=== PATIENT | male | born 1940 | race Two or more races ===

== ENCOUNTER 2024-09-10 10:47 | Inpatient (IN) | payer MEDICARE, OTHER ==
[~2024-09-10] VITALS: Ht 168.9 cm; Wt 76.3 kg
[~2024-09-10 10:47] MED LIST: ACET-1881 PO; ATOR-507 PO; BISA10SU52 PR; CEFD300C2 PO; DICL75TA3 PO; DOXY100C4 PO; FAMO-12 PO; FLUC100T34 PO; FURO40TA4 PO; LEVO25TA6 PO; LISI10TA34 PO; MELA5TAB16 PO; METO25TA93 PO; POTA-228 PO; SODIENE35 RE
--- NOTE | 2024-09-10 11:13 | ED.PDOC ---
History of Present Illness HPI Comments 84-year-old with only known history of CHF brought in by EMS presents with a wound to right foot and ALOC. Per EMS, patient is coming from home and a "doctor" called 911 after finding patient with a wound to his right foot that is actively bleeding. Patients foot was wrapped with sterile gauze by EMS to cont rol the bleeding. Patient is altered at this time, unable to open eyes, and physically moves to physical stimuli, but does not respond to verbal stimuli. No family present to elaborate further on patients history or conditions. Chief Complaint: Wound Check Time Seen by MD: 11:05 Primary Care Provider: HERVE Reviewed Notes: Medications, Allergies Allergies: Coded Allergies: NO KNOWN ALLERGIES (Unverified , 09/10/24) Information Source: Emergency Med Personnel Mode of Arrival: EMS Severity: Moderate Timing: Other (UNKNOWN) Duration: Other (UNKNOWN) Prehospital treatment: Treatment (GAUZE TO BLEEDING RIGHT FOOT) Past Medical History PAST MEDICAL HISTORY: CHF, Unknown, Unobtainable, Pt Confused Surgical History: Unknown, Unobtainable, Pt Confused Family History Family History: Unknown, Unobtainable, Pt Confused Social History Smoker: Unknown, Unobtainable, Pt Confused Alcohol: Unknown, Unobtainable, Pt Confused Drugs: Unknown, Unobtainable, Pt Confused Lives In: Home Constitutional: denies: chills, diaphoresis, fatigue, fever, malaise, sweats, weakness, others EENTM: denies: blurred vision, double vision, ear bleeding, ear discharge, ear drainage, ear pain, ear ringing, eye pain, eye redness, hearing loss, mouth pain, mouth swelling, nasal discharge, nose bleeding, nose congestion, nose pain, photophobia, tearing, throat pain, throat swelling, voice changes, others Respiratory: denies: cough, hemoptysis, orthopnea, SOB at rest, shortness of breath, SOB with excertion, stridor, wheezing, others Cardiovascular: denies: chest pain, dizzy spells, diaphoresis, Dyspnea on exertion, edema, irregular heart beat, left arm pain, lightheadedness, palpitations, PND, syncope, others Gastrointestinal: denies: abdomen distended, abdominal pain, blood streaked bowels, constipated, diarrhea, dysphagia, difficulty swallowing, hematemesis, melena, nausea, poor appetite, poor fluid intake, rectal bleeding, rectal pain, vomiting, others Genitourinary: denies: burning, dysuria, flank pain, frequency, hematuria, incontinence, penile discharge, penile sore, pain, testicle pain, testicle swelling, urgency, others Neurological: denies: dizziness, fainting, headache, left sided numbness, left sided weakness, numbness, paresthesia, pre-existing deficit, right sided numbness, right sided weakness, seizure, speech problems, tingling, tremors, we akness, others Musculoskeletal: denies: back pain, gout, joint pain, joint swelling, muscle pain, muscle stiffness, neck pain, others Integumetry: reports: wounds (RIGHT BLEEDING FOOT); denies: bruises, change in color, change in hair/nails, dryness, laceration, lesions, lumps, rash, others Allergic/Immunocompromised: denies: Difficulty Healing, Frequent Infections, Hives, Itching, others Hematologic/Lymphatic: denies: anemia, blood clots, easy bleeding, easy bruising, swollen glands, others Endocrine: denies: excessive hunger, excessive sweating, excessive thirst, excessive urination, flushing, intolerance to cold, intolerance to heat, unexplained weight gain, unexplained weight loss, others Psychiatric: denies: anxiety, bipolar disorder, depression, hopeless, panic disorder, schizophrenia, sleepless, suicidal, others Unable to Obtain due to: Altered Mental Status All Other Systems: Reviewed and Negative Physical Exam General Appearance: Other (Chronically ill-appearing and A&O times 0) HEENT: Other (Poor dentition) Neck: Normal Inspection Respiratory: No Respiratory Distress Cardiovascular: Tachycardia Breast Exam: Deferred Gastrointestinal: Non Tender Genitalia: Deferred Pelvic: Deferred Rectal: Deferred Extremities: Other (Erythema tenderness and discoloration to the bilateral lower extremities) Neurologic: Aphasia, No Motor Deficits, Other (Patient is nonverbal ) Cerebellar Function: Unable to Test Reflexes: NOT DONE Skin: Wounds Lymphatic: NOT DONE Was a procedure done? Was a procedure done?: No Differential Dx Considerations may include: Electrolyte abnormality, infectious etiology circulatory compromise X-Ray, Labs, Meds, VS Vital Signs Date Time Temp Pulse Resp B/P (MAP) Pulse Ox O2 Delivery O2 Flow Rate FiO2 09/10/24 14:40 54 09/10/24 13:18 65 19 137/118 (124) 96 09/10/24 12:24 56 15 156/120 (132) 96 09/10/24 11:37 58 16 164/144 (151) 96 09/10/24 10:47 98.9 58 15 109/71 (84) 95 Lab Test 09/10/24 14:07 09/10/24 12:45 Range/Units Troponin I High Sensitivity 81 *H 79 *H </=54 ng/L White Blood Count 7.7 4.4-10.8 10^3/uL Red Blood Count 4.81 4.5-5.90 10^6/uL Hemoglobin 16.2 13.5-17.5 g/dL Hematocrit 49.4 41.0-53.0 % Mean Corpuscular Volume 102.8 H 80.0-100.0 fL Mean Corpuscular Hemoglobin 33.7 H 28.0-32.0 pg Mean Corpuscular Hemoglobin Concent 32.8 32.0-36.0 g/dL Red Cell Distribution Width 15.7 H 11.8-14.3 % Platelet Count 150 140-450 10^3/uL Mean Platelet Volume 9.8 6.9-10.8 fL Neutrophils (%) (Auto) 37.0-80.0 % Lymphocytes (%) (Auto) 10.0-50.0 % Monocytes (%) (Auto) 0.0-12.0 % Basophils (%) (Auto) 0.0-2.0 % Neutrophils # (Auto) 1.6-8.6 10 ^3/uL Lymphocytes # (Auto) 0.4-5.4 10 ^3/uL Monocytes # (Auto) 0-1.3 10 ^3/uL Differential Total Cells Counted 100.0 100 Neutrophils % (Manual) 87 H 37.0-80.0 Band Neutrophils % (Manual) 3 Lymphocytes % (Manual) 5 L 10.0-50.0 Monocytes % (Manual) 5 0-12 Eosinophils % (Manual) 0 0-7 Basophils % (Manual) 0 0.0-2.0 Metamyelocytes % (manual) 0 Myelocytes % (Manual) 0 Promyelocytes % (Manual) 0 Blast Cells % (Manual) 0 Reactive Lymphocytes 0 Platelet Estimate Adequate Clumped Platelets Few Anisocytosis (manual) Slight Macrocytosis Slight Sodium Level 138 136-145 mmol/L Potassium Level 6.4 *H 3.5-5.1 mmol/L Chloride Level 103 98-107 mmol/L Carbon Dioxide Level 24 20-31 mmol/L Anion Gap 11 5-15 Blood Urea Nitrogen 114 *H 9-23 mg/dL Creatinine 3.66 H 0.700-1.30 mg/dL Glomerular Filtration Rate Calc 16 >90 mL/min BUN/Creatinine Ratio 31.1 H 10.0-20.0 Serum Glucose 70 L 74-106 mg/dL Lactic Acid Level 3.0 *H 0.4-2.0 mmol/L Calcium Level 10.0 8.7-10.4 mg/dL Total Bilirubin 1.9 H 0.2-1.0 mg/dL Aspartate Amino Transferase (AST) 210 H 13-40 U/L Alanine Aminotransferase (ALT) 115 H 7-40 U/L Alkaline Phosphatase 166 H 46-116 U/L B-Type Natriuretic Peptide 1623.10 0-100 pg/mL Total Protein 5.5 L 5.7-8.2 g/dL Albumin 3.2 3.2-4.8 g/dL Current Medications Medications (Trade) Dose Ordered Sig/Aram Route Start Time Stop Time Status Last Admin Vancomycin HCl 200 ml @ 200 mls/hr ONCE ONCE IV 09/10/24 14:00 09/10/24 14:59 09/10/24 14:27 Sodium Chloride 2,000 ml @ 1,000 mls/hr Q2H ONCE IV 09/10/24 14:00 09/10/24 15:59 09/10/24 14:18 Time of 1ST Reevaluation: 11:35 Reevaluation 1ST: Unchanged Patient Education/Counseling: Diagnosis, Treatment, Prognosis Family Education/Counseling: Diagnosis, Treatment, Prognosis Departure 1 Departure Time of Disposition: 14:51 (Patient with worsening bilateral lower extremity cellulitis, and inability to care for himself at home. Family reports that patient is at his mental baseline.) Impression: Primary Impression: Bilateral cellulitis of lower leg Additional Impressions: Generalized weakness Metabolic encephalopathy Disposition: ADMITTED INPATIENT Admit to: Med Surg Condition: Serious Critical Care Note Critical Care Time?: No Stability Stability form required: No I personally scribed for ZACHARY NAPOLES MD ([email or web address]) on 09/10/24 at 11:13. Electronically submitted by Savage Red [email or web address]). ZACHARY NAPOLES MD Sep 10, 2024 11:13
[2024-09-10 11:40] VITALS: PULSE 58; RESP 9; O2SAT 90
--- NOTE | 2024-09-10 13:00 | DVH ---
CHEST RADIOGRAPH Indication: ams Technique: Single frontal view of the chest was obtained COMPARISON: None FINDINGS: Lines and Tubes: None Lungs: Clear Pleura: No effusion. No pneumothorax. Cardiomediastinal contours: Cardiomegaly Bones: Unremarkable IMPRESSION: 1. No acute disease. 2. Cardiomegaly
--- NOTE | 2024-09-10 13:04 | DVH ---
CLINICAL INDICATION: right foot pain TECHNIQUE: 3 radiographic views of the right foot were obtained. Comparison: None FINDINGS/IMPRESSION: There is no evidence of acute fracture or dislocation. The visualized joint space is well maintained. The alignment is anatomical. 5 mm curvilinear density partially overlying the medial 5th toe proximal phalanx head which may be ex ternal to the patient with the foreign body not excluded. Recommend clinical correlation.
[2024-09-10 13:19] LABS: Hemoglobin 16.2 g/dL (13.5-17.5); White Blood Cell 7.7 10^3/uL (4.4-10.8)
[2024-09-10 13:20] LABS: Hematocrit 49.4 % (41.0-53.0); Mean Corpuscular Hemoglobin 33.7 pg (28.0-32.0); Mean Corpuscular Hgb Conc. 32.8 g/dL (32.0-36.0); Mean Corpuscular Volume 102.8 fL (80.0-100.0); Platelet Count (auto) 150 10^3/uL (140-450); Red Blood Cells 4.81 10^6/uL (4.5-5.90); Red Cell Distribution Width 15.7 % (11.8-14.3)
[2024-09-10 13:25] LABS: Basophils % (manual) 0 (0.0-2.0); Blast Cells 0; Eosinophils % (manual) 0 (0-7); Metamyelocytes % 0; Myelocytes % 0; Promyelocytes % 0; Reactive Lymphocytes 0
[2024-09-10 13:33] LABS: Albumin 3.2 g/dL (3.2-4.8); Anion Gap 11 (5-15); BUN/Creatinine Ratio 31.1 (10.0-20.0); Carbon Dioxide 24 mmol/L (20-31); Chloride 103 mmol/L (98-107); Sodium 138 mmol/L (136-145)
[2024-09-10 13:35] LABS: Anisocytosis Slight; Band Neutrophils % (manual) 3; Lymphocytes % (manual) 5 (10.0-50.0); Macrocytosis Slight; Monocytes % (manual) 5 (0-12); Platelet Estimate Adequate
[2024-09-10 13:44] LABS: Alanine Aminotransferase 115 U/L (7-40); Alkaline Phosphatase 166 U/L (46-116); Aspartate Aminotransferase 210 U/L (13-40); Bilirubin, Total 1.9 mg/dL (0.2-1.0); Glucose 70 mg/dL (74-106); Total Protein 5.5 g/dL (5.7-8.2)
[2024-09-10 13:47] LABS: Blood Urea Nitrogen 114 mg/dL (9-23); Potassium 6.4 mmol/L (3.5-5.1)
[2024-09-10] MEDS: SODIUM CHLORIDE 0.9% 2,000 ML IV ONE (14:18)
[2024-09-10] MEDS: VANCOMYCIN 1GM/250ML KIT 200 ML IV ONE (14:27)
[2024-09-10] MEDS: CALCIUM GLUC 1,000mg/50ml-NS 50 ML IV SCH (15:34)
[2024-09-10] MEDS: DEXTROSE (50%) 50ML SYRG IV ONE (15:57)
[2024-09-10] MEDS: InsuLIN REG 1unit/0.01ml Soln (100units/ml) IV ONE (16:19)
[2024-09-10] MEDS: SODIUM BICARB 8.4% 50Meq/50ml SYR Vial IV ONE (16:24)
[2024-09-10] MEDS: CEFEPIME 2GM/50ML NS 50 ML IV ONE (16:25)
[2024-09-11 00:04] LABS: Urine Bacteria FEW /hpf (None Seen); Urine Blood 2+ /uL (Negative); Urine Clarity Turbid (Clear); Urine Color Yellow (Yellow); Urine Hyaline Cast MOD /lpf (0 - 2); Urine Mucus FEW (None Seen); Urine Protein, UAD 1+ (Negative); Urine Squamous Epithelial Cell FEW /hpf (<5); Urine Urobilinogen Normal (Negative); Urine WBC 5 /HPF (0-3)
[2024-09-11] MEDS: DEXTROSE (50%) 50ML SYRG IV ONE (01:42)
[2024-09-11] MEDS ORDERED: NITROGLYCERIN 0.4 MG SL TAB SL PRN (04:30)
[2024-09-11] MEDS ORDERED: ONDANSETRON HCL 4 MG/2 ML VIAL IV PRN (04:30)
[2024-09-11] MEDS ORDERED: VANCOMYCIN PER PHARMACY 0 MG IV SCH (04:30)
[2024-09-11] MEDS ORDERED: MORPHINE SULFATE INJ 2 MG/ml SYRG IV PRN (04:30)
[2024-09-11] MEDS ORDERED: ACETAMINOPHEN 325 MG TAB PO PRN (04:30)
--- NOTE | 2024-09-11 04:44 | DVHHP2 ---
History of Present Illness Reason for Visit: Altered mental status History of Present Illness 84-year-old male presents for evaluation of altered mental status. Patient is currently confused and can not provide history. Patient presents with altered mental status and bilateral foot wounds. CT of the head has been ordered by this provider and is currently pending. Patient is alert but does not respond to questions or follow commands. Noted discoloration and multiple open wounds to bilateral feet. No further history could be obtained at the moment. Past Medical History Congestive heart failure and hypertension Past Surgical History Unknown Family History Noncontributory Smoke: No ALCOHOL: none Drugs: None Review of Systems Review of Systems Unable to complete review of systems due to the patient's altered mental status. Allergies: Coded Allergies: NO KNOWN ALLERGIES (Unverified , 09/10/24) Exam Vital Signs Vital Signs Date Time Temp Pulse Resp B/P (MAP) Pulse Ox O2 Delivery O2 Flow Rate FiO2 09/11/24 04:00 76 27 95/65 (75) 96 09/11/24 00:00 97.9 97.9 09/10/24 19:30 Nasal Cannula* 2 28 Exam Gen: 84-year-old male in moderate distress Skin: Warm, dry, normal color and texture, no rash. HEENT: Normocephalic atraumatic, mucous membranes moist and pink. Neck: Cervical and supraclavicular nodes normal without enlargement, trachea is midline, thyroid gland is normal without masses. Pulmonary: Clear to auscultation and percussion bilaterally. Cardiac: Regular rate and rhythm. No murmur Abdomen: Soft, nontender, nondistended, bowel sounds present all 4 quadrants, no guarding, no rigidity, no organomegaly. Extremities: No cyanosis, clubbing, bilateral feet discoloration with multiple open wounds and sluggish dorsalis pedis pulses. Neuro: Lethargic Labs/Xrays ORDERING PHYSICIAN: ZACHARY NAPOLES MD PROCEDURE(s): RFOOT - R FOOT 3 VIEW XRAY REASON: right foot pain ORDER NUMBER(s): [id number], ACCESSION NUMBER(s): [id number] CLINICAL INDICATION: right foot pain TECHNIQUE: 3 radiographic views of the right foot were obtained. Comparison: None FINDINGS/IMPRESSION: There is no evidence of acute fracture or dislocation. The visualized joint space is well maintained. The alignment is anatomical. 5 mm curvilinear density partially overlying the medial 5th toe proximal phalanx head which may be external to the patient with the foreign body not excluded. Recommend clinical correlation. RING PHYSICIAN: ZACHARY NAPOLES MD PROCEDURE(s): CXRP - CHEST PORTABLE REASON: ams ORDER NUMBER(s): [id number], ACCESSION NUMBER(s): [id number] CHEST RADIOGRAPH Indication: ams Technique: Single frontal view of the chest was obtained COMPARISON: None FINDINGS: Lines and Tubes: None Lungs: Clear Pleura: No effusion. No pneumothorax. Cardiomediastinal contours: Cardiomegaly Bones: Unremarkable IMPRESSION: 1. No acute disease. 2. Cardiomegaly Labs Test 09/11/24 03:13 09/10/24 23:45 09/10/24 21:31 09/10/24 16:56 Range/Units Urine Color Yellow Yellow Urine Clarity Turbid H Clear Urine pH 5.0 5.0-9.0 Urine Specific [place] 1.020 1.001-1.035 Urine Protein 1+ H Negative Urine Ketones Negative Negative Urine Blood 2+ H Negative /uL Urine Nitrite Negative Negative Urine Bilirubin Negative Negative Urine Urobilinogen Normal Negative mg/dL Urine Leukocyte Esterase Negative Negative /uL Urine RBC 58 0 - 3 /hpf Urine Microscopic WBC 5 H 0-3 /HPF Urine Squamous Epithelial Cells Few <5 /hpf Urine Bacteria Few H None Seen /hpf Urine Hyaline Casts Mod 0 - 2 /lpf Urine Mucus Few None Seen Urine Glucose Normal Normal mg/dL POC Glucose 76 70-106 mg/dl Troponin I High Sensitivity 80 *H </=54 ng/L Test 09/10/24 12:45 Range/Units White Blood Count 7.7 4.4-10.8 10^3/uL Red Blood Count 4.81 4.5-5.90 10^6/uL Hemoglobin 16.2 13.5-17.5 g/dL Hematocrit 49.4 41.0-53.0 % Mean Corpuscular Volume 102.8 H 80.0-100.0 fL Mean Corpuscular Hemoglobin 33.7 H 28.0-32.0 pg Mean Corpuscular Hemoglobin Concent 32.8 32.0-36.0 g/dL Red Cell Distribution Width 15.7 H 11.8-14.3 % Platelet Count 150 140-450 10^3/uL Mean Platelet Volume 9.8 6.9-10.8 fL Neutrophils (%) (Auto) 37.0-80.0 % Lymphocytes (%) (Auto) 10.0-50.0 % Monocytes (%) (Auto) 0.0-12.0 % Basophils (%) (Auto) 0.0-2.0 % Neutrophils # (Auto) 1.6-8.6 10 ^3/uL Lymphocytes # (Auto) 0.4-5.4 10 ^3/uL Monocytes # (Auto) 0-1.3 10 ^3/uL Differential Total Cells Counted 100.0 100 Neutrophils % (Manual) 87 H 37.0-80.0 Band Neutrophils % (Manual) 3 Lymphocytes % (Manual) 5 L 10.0-50.0 Monocytes % (Manual) 5 0-12 Eosinophils % (Manual) 0 0-7 Basophils % (Manual) 0 0.0-2.0 Metamyelocytes % (manual) 0 Myelocytes % (Manual) 0 Promyelocytes % (Manual) 0 Blast Cells % (Manual) 0 Reactive Lymphocytes 0 Platelet Estimate Adequate Clumped Platelets Few Anisocytosis (manual) Slight Macrocytosis Slight B-Type Natriuretic Peptide 1623.10 0-100 pg/mL Assessment/Plan Assessment/Plan Assessment Metabolic encephalopathy Sepsis Acute on chronic congestive heart failure Rule out bilateral foot necrosis Questionable peripheral arterial disease Acute renal failure with hyperkalemia Hypo glycemia Plan Admit the patient to [facility] to the hospitalist Cardiology consultation Nephrology consult Podiatry consult Vascular surgery consultation CT of the head/bilateral foot ordered by this provider and pending Repeat blood work ordered on 09/10/24 at 2145 and still pending Total critical care time excluding procedures performed this 55 minutes. Plan discussed with: Patient My Orders Orders - PRADIP MUSE Procedure Category Date Status Time Creatine Kinase LAB 09/10/24 Logged 21:45 Comprehensive LAB 09/10/24 Logged Metabolic Panel 21:45 Lactic Acid W/ Reflex LAB 09/11/24 Logged Order 01:45 Date of Service: Sep 11, 2024 Billing Provider: PRADIP MUSE Common Visit Codes: [id number] CARE 30-74 MIN PRADIP MUSE Sep 11, 2024 04:44
[2024-09-11 05:01] LABS: Base Excess -2.4 mmol/L (-2.0-3.0)
[2024-09-11] MEDS: DEXTROSE 10% 1,000 ML IV SCH (05:03)
[2024-09-11 05:39] LABS: Eosinophils # (auto) 0 10 ^3/uL (0-0.8); Eosinophils % (auto) 0.1 % (0.0-7.0); Hemoglobin 16.1 g/dL (13.5-17.5); Lymphocytes # (auto) 0.2 10 ^3/uL (0.4-5.4); Lymphocytes % (auto) 2.7 % (10.0-50.0); Mean Corpuscular Hemoglobin 34.4 pg (28.0-32.0)
[2024-09-11 05:42] LABS: Basophils # (auto) 0.1 10 ^3/uL (0-0.2); Basophils % (auto) 0.6 % (0.0-2.0); Hematocrit 47.7 % (41.0-53.0); Mean Corpuscular Hgb Conc. 33.7 g/dL (32.0-36.0); Mean Corpuscular Volume 102.2 fL (80.0-100.0); Monocytes # (auto) 0.7 10 ^3/uL (0-1.3); Neutrophils # (auto) 7.9 10 ^3/uL (1.6-8.6); Neutrophils % (auto) 88.6 % (37.0-80.0); Platelet Count (auto) 164 10^3/uL (140-450); Red Blood Cells 4.67 10^6/uL (4.5-5.90); Red Cell Distribution Width 15.7 % (11.8-14.3); White Blood Cell 8.9 10^3/uL (4.4-10.8)
[2024-09-11 05:56] LABS: Nucleated Red Blood Cells % 3.1 %
[2024-09-11] MEDS: FUROSEMIDE 20 MG/2 ML VIAL IV SCH (06:02)
[2024-09-11 06:08] LABS: Albumin 3.2 g/dL (3.2-4.8); Anion Gap 13 (5-15); Calcium 9.9 mg/dL (8.7-10.4); Chloride 106 mmol/L (98-107); Glucose 91 mg/dL (74-106); Sodium 138 mmol/L (136-145)
[2024-09-11 06:21] LABS: Lactic Acid w/Reflex 2.4 mmol/L (0.4-2.0)
[2024-09-11 06:23] LABS: Alanine Aminotransferase 118 U/L (7-40); Blood Urea Nitrogen 79 mg/dL (9-23); Creatine Kinase IFCC 1531 U/L (46-171)
[2024-09-11 06:25] LABS: Potassium 6.8 mmol/L (3.5-5.1)
[2024-09-11 06:27] LABS: Alkaline Phosphatase 158 U/L (46-116); Aspartate Aminotransferase 229 U/L (13-40); BUN/Creatinine Ratio 22.5 (10.0-20.0); Bilirubin, Total 1.9 mg/dL (0.2-1.0); Carbon Dioxide 19 mmol/L (20-31); Total Protein 5.7 g/dL (5.7-8.2)
--- NOTE | 2024-09-11 09:37 | DVHINCON2 ---
Date of service: Sep 11, 2024 Referring Physician Dave Darling, nurse practitioner Reason for Consultation Acute kidney injury History of Present Illness Patient is 84-year-old male with unknown past medical history is protein by paramedics for altered level of consciousness and wound right foot. On admission patient found to have elevated BUN and creatinine nephrology is consulted for acute kidney injury Past Medical History Unknown Past Surgical History Unknown Allergies: Coded Allergies: NO KNOWN ALLERGIES (Unverified , 09/10/24) Current Medications Current Medications Medications (Trade) Dose Ordered Sig/Aram Route PRN Reason Start Time Stop Time Status Last Admin Calcium Gluconate/ Sodium Chloride 50 ml @ 100 mls/hr Q30M IV 09/10/24 15:00 09/10/24 15:59 DC 09/10/24 15:49 Vancomycin HCl 0 ml @ 0 mls/hr UD IV 09/11/24 04:30 UNV Piperacillin Sod/ Tazobactam Sod 100 ml @ 25 mls/hr Q12HR IV 09/11/24 10:00 09/11/24 10:45 Furosemide (Lasix Injection) 20 mg BIDD IV 09/11/24 06:00 09/11/24 06:02 Atorvastatin Calcium (Lipitor) 40 mg HS PO 09/11/24 22:00 Carvedilol (Coreg Tablet) 6.25 mg Q12HR PO 09/11/24 10:00 09/11/24 11:54 Apixaban (Eliquis) 2.5 mg BID PO 09/11/24 10:00 09/11/24 11:53 Dextrose 1,000 ml @ 45 mls/hr [id number] IV 09/11/24 04:30 09/11/24 05:03 Ondansetron HCl (Zofran) 4 mg Q4HP PRN IV NAUSEA / VOMITING 09/11/24 04:30 Acetaminophen (Tylenol Tablet) 650 mg Q6HP PRN PO PAIN SCALE 1-3 OR TEMP>100.4 09/11/24 04:30 Nitroglycerin (Ntrostat Sublingual) 0.4 mg Q5MINP PRN SL FOR CHEST PAIN 09/11/24 04:30 Morphine Sulfate 2 mg Q30M PRN IV FOR CHEST PAIN 09/11/24 04:30 Lorazepam (Ativan Inj) 0.5 mg Q12HP PRN IV ANXIETY 09/11/24 04:45 Sodium Bicarbonate 50 ml/ Sodium Chloride 1,050 ml @ 100 mls/hr [id number] IV 09/11/24 09:30 09/11/24 11:38 Dopamine HCl/ Dextrose 250 ml @ 5.625 mls/ hr Q24H IV 09/11/24 09:30 09/11/24 10:44 Review of Systems Can not be obtained H&P Exam Vital Signs/I&O Vital Sign Date Time Temp Pulse Resp B/P (MAP) Pulse Ox O2 Delivery O2 Flow Rate FiO2 09/11/24 11:54 79 108/60 09/11/24 10:00 17 92 09/11/24 09:32 Nasal Cannula* 2 28 09/11/24 08:00 97.8 97.8 Intake and Output 09/10/24 09/11/24 19:00 07:00 Intake Total 2325.0 ml 57.5 ml Balance 2325.0 ml 57.5 ml Intake IV Total 2325.0 ml 57.5 ml Physical Exam Patient is awake but mumbling and confused Lungs clear to auscultation bilaterally Cardiac exam regular rate and rhythm GI soft bowel sounds are present Lee catheter Extremity bilateral toe necrosis and foot erythema and ischemic changes Neuro patient is confused and altered Labs/Diagnostic Data Labs/Diagnostic Data Laboratory Tests Test 09/11/24 09:30 09/11/24 06:38 09/11/24 05:20 09/11/24 04:53 Range/Units Lactic Acid Level 2.4 *H 2.4 *H 0.4-2.0 mmol/L Creatine Kinase 587 H 1531 H 46-171 U/L White Blood Count 8.9 4.4-10.8 10^3/uL Red Blood Count 4.67 4.5-5.90 10^6/uL Hemoglobin 16.1 13.5-17.5 g/dL Hematocrit 47.7 41.0-53.0 % Mean Corpuscular Volume 102.2 H 80.0-100.0 fL Mean Corpuscular Hemoglobin 34.4 H 28.0-32.0 pg Mean Corpuscular Hemoglobin Concent 33.7 32.0-36.0 g/dL Red Cell Distribution Width 15.7 H 11.8-14.3 % Platelet Count 164 140-450 10^3/uL Mean Platelet Volume 9.7 6.9-10.8 fL Neutrophils (%) (Auto) 88.6 H 37.0-80.0 % Lymphocytes (%) (Auto) 2.7 L 10.0-50.0 % Monocytes (%) (Auto) 8.0 0.0-12.0 % Eosinophils (%) (Auto) 0.1 0.0-7.0 % Basophils (%) (Auto) 0.6 0.0-2.0 % Neutrophils # (Auto) 7.9 1.6-8.6 10 ^3/uL Lymphocytes # (Auto) 0.2 L 0.4-5.4 10 ^3/uL Monocytes # (Auto) 0.7 0-1.3 10 ^3/uL Eosinophils # (Auto) 0 0-0.8 10 ^3/uL Basophils # (Auto) 0.1 0-0.2 10 ^3/uL Nucleated Red Blood Cells 3.1 % Sodium Level 138 136-145 mmol/L Potassium Level 6.8 *H 3.5-5.1 mmol/L Chloride Level 106 98-107 mmol/L Carbon Dioxide Level 19 L 20-31 mmol/L Anion Gap 13 5-15 Blood Urea Nitrogen 79 H 9-23 mg/dL Creatinine 3.51 H 0.700-1.30 mg/dL Glomerular Filtration Rate Calc 17 >90 mL/min BUN/Creatinine Ratio 22.5 H 10.0-20.0 Serum Glucose 91 74-106 mg/dL Calcium Level 9.9 8.7-10.4 mg/dL Phosphorus Level 6.0 H 2.4-5.1 mg/dL Magnesium Level 2.4 1.6-2.6 mg/dL Total Bilirubin 1.9 H 0.2-1.0 mg/dL Aspartate Amino Transferase (AST) 229 H 13-40 U/L Alanine Aminotransferase (ALT) 118 H 7-40 U/L Alkaline Phosphatase 158 H 46-116 U/L B-Type Natriuretic Peptide 854.96 0-100 pg/mL Total Protein 5.7 5.7-8.2 g/dL Albumin 3.2 3.2-4.8 g/dL Parathyroid Hormone (Intact) 171.0 H 18.4-80.1 pg/mL Hepatitis B Surface Antigen Negative Negative Hepatitis C Antibody Negative Negative Blood Gas Specimen Type Arterial Blood Gas Sample Site Right radial Blood Gas Patient Temperature 37.0 Arterial Blood Date Drawn [id number] Arterial Blood pH 7.379 7.350-7.450 Arterial Blood Partial Pressure CO2 38.8 35.0-48.0 mmHg Arterial Blood Partial Pressure O2 75.7 L 83.0-108.0 mmHg Arterial Blood HCO3 22.4 21.0-28.0 mmol/L Arterial Blood Oxygen Saturation 94.1 94.0-98.0 % Arterial Blood Base Excess -2.4 L -2.0-3.0 mmol/L Arterial Blood Oxyhemoglobin 92.1 L 94.0-98.0 % Arterial Blood Carboxyhemoglobin 1.5 0.5-1.5 % Arterial Blood Methemoglobin 0.6 0.0-1.5 % Kirk Test Modified Blood Gas Total Hemoglobin 16.10 13.5-17.5 g/dL Blood Gas Liter Flow 4.00 Blood Gas Modality Nasal cannula FiO2 % 32.0 Test 09/10/24 23:45 09/10/24 21:31 09/10/24 16:56 09/10/24 15:47 Range/Units Urine Color Yellow Yellow Urine Clarity Turbid H Clear Urine pH 5.0 5.0-9.0 Urine Specific [place] 1.020 1.001-1.035 Urine Protein 1+ H Negative Urine Ketones Negative Negative Urine Blood 2+ H Negative /uL Urine Nitrite Negative Negative Urine Bilirubin Negative Negative Urine Urobilinogen Normal Negative mg/dL Urine Leukocyte Esterase Negative Negative /uL Urine RBC 58 0 - 3 /hpf Urine Microscopic WBC 5 H 0-3 /HPF Urine Squamous Epithelial Cells Few <5 /hpf Urine Bacteria Few H None Seen /hpf Urine Hyaline Casts Mod 0 - 2 /lpf Urine Mucus Few None Seen Urine Glucose Normal Normal mg/dL POC Glucose 76 53 L 70-106 mg/dl Troponin I High Sensitivity 80 *H </=54 ng/L Test 09/10/24 14:54 09/10/24 14:07 09/10/24 12:45 Range/Units Lactic Acid Level 3.2 *H 3.0 *H 0.4-2.0 mmol/L Troponin I High Sensitivity 81 *H 79 *H </=54 ng/L White Blood Count 7.7 4.4-10.8 10^3/uL Red Blood Count 4.81 4.5-5.90 10^6/uL Hemoglobin 16.2 13.5-17.5 g/dL Hematocrit 49.4 41.0-53.0 % Mean Corpuscular Volume 102.8 H 80.0-100.0 fL Mean Corpuscular Hemoglobin 33.7 H 28.0-32.0 pg Mean Corpuscular Hemoglobin Concent 32.8 32.0-36.0 g/dL Red Cell Distribution Width 15.7 H 11.8-14.3 % Platelet Count 150 140-450 10^3/uL Mean Platelet Volume 9.8 6.9-10.8 fL Neutrophils (%) (Auto) 37.0-80.0 % Lymphocytes (%) (Auto) 10.0-50.0 % Monocytes (%) (Auto) 0.0-12.0 % Basophils (%) (Auto) 0.0-2.0 % Neutrophils # (Auto) 1.6-8.6 10 ^3/uL Lymphocytes # (Auto) 0.4-5.4 10 ^3/uL Monocytes # (Auto) 0-1.3 10 ^3/uL Differential Total Cells Counted 100.0 100 Neutrophils % (Manual) 87 H 37.0-80.0 Band Neutrophils % (Manual) 3 Lymphocytes % (Manual) 5 L 10.0-50.0 Monocytes % (Manual) 5 0-12 Eosinophils % (Manual) 0 0-7 Basophils % (Manual) 0 0.0-2.0 Metamyelocytes % (manual) 0 Myelocytes % (Manual) 0 Promyelocytes % (Manual) 0 Blast Cells % (Manual) 0 Reactive Lymphocytes 0 Platelet Estimate Adequate Clumped Platelets Few Anisocytosis (manual) Slight Macrocytosis Slight Sodium Level 138 136-145 mmol/L Potassium Level 6.4 *H 3.5-5.1 mmol/L Chloride Level 103 98-107 mmol/L Carbon Dioxide Level 24 20-31 mmol/L Anion Gap 11 5-15 Blood Urea Nitrogen 114 *H 9-23 mg/dL Creatinine 3.66 H 0.700-1.30 mg/dL Glomerular Filtration Rate Calc 16 >90 mL/min BUN/Creatinine Ratio 31.1 H 10.0-20.0 Serum Glucose 70 L 74-106 mg/dL Calcium Level 10.0 8.7-10.4 mg/dL Total Bilirubin 1.9 H 0.2-1.0 mg/dL Aspartate Amino Transferase (AST) 210 H 13-40 U/L Alanine Aminotransferase (ALT) 115 H 7-40 U/L Alkaline Phosphatase 166 H 46-116 U/L B-Type Natriuretic Peptide 1623.10 0-100 pg/mL Total Protein 5.5 L 5.7-8.2 g/dL Albumin 3.2 3.2-4.8 g/dL Assessment Acute kidney injury superimposed Chronic Kidney Disease secondary hemodynamic mediated Hyperkalemia Metabolic acidosis Bilateral ischemic necrosis of foot Peripheral arterial disease Hepatic encephalopathy Jaundice Transaminitis Sepsis Elevated troponin Recommendations Closely monitor fluid and electrolytes Avoid nephrotoxic medications Lee catheter Strict I&Os Check urine electrolytes and urine protein excretion Check kidney ultrasound IV antibiotics Emergent medical treatment for hyperkalemia IV fluids with bicarb Low-dose dopamine Podiatry consult GI consult We will continue to follow Patient seen and examined by myself in the ER. I discussed my plan of care with the primary nurse at the bedside I would like to thank Dave for the consult, will follow up Plan discussed with: Other GEORGIA MAYA MD Sep 11, 2024 09:37
[2024-09-11 10:12] LABS: Magnesium 2.4 mg/dL (1.6-2.6)
--- NOTE | 2024-09-11 10:32 | DVH ---
INDICATION: nelia TECHNIQUE: Multiple real-time sonographic images of the kidneys and bladder were obtained. COMPARISON: None FINDINGS: The right kidney measures 10 cm in length, which is normal in size. There is normal echogenicity of t he right kidney. No hydronephrosis. The left kidney measures 9 cm in length, which is normal in size. There is normal echogenicity of the left kidney. No hydronephrosis. No large intraluminal masses are seen in the bladder. Small right pleural effusion. Trace left pleural effusion. IMPRESSION: 1. Normal sonographic appearance of the kidneys. No hydronephrosis. 2. Small right pleural effusion. Trace left pleural effusion.
--- NOTE | 2024-09-11 10:33 | DVH ---
CLINICAL INDICATION: 84 years old, Male; possible necrosis. TECHNIQUE: Noncontrast CT of the left foot was performed. Sagittal and coronal reformatted images are provided. COMPARISON: None. CT Dose: CTDI volume is 7.8 mGy. Dose-length product is 383.32 mGy*cm FINDINGS: No fracture or dislocation. No evidence of periosteal reaction or cortical destruction. Diffuse circumferential soft tissue swelling in the visualized left lower extremity. No soft tissue gas. Soft tissue swelling is most severe in the ankle and dorsal foot. Heavy vascular calcifications. IMPRESSION: 1. Cellulitis in the left lower extremity. No fluid collection or soft tissue gas. 2. No CT evidence of osteomyelitis. All CT scans at this medical facility are performed using dose modulation techniques as appropriate to a performed exam including the following: Automated exposure control was utilized; adjustment of the MA and/or KV according to patient size; and use of iterative reconstruction technique. Y GREENFIELD
--- NOTE | 2024-09-11 10:36 | DVH ---
CLINICAL INDICATION: 84 years old, Male; possible necrosis. TECHNIQUE: Noncontrast CT of the right foot was performed. Sagittal and coronal reformatted images are provided. COMPARISON: Radiographs of the right foot dated 09/10/2024. CT Dose: CTDI volume is 7.8 mGy. Dose-length product is 383.32 mGy*cm FINDINGS: No fracture or dislocation. No evidence of periosteal reaction or cortical destruction. Diffuse circumferential soft tissue swelling in the visualized right lower extremity. No soft tissue gas. Soft tissue swelling is most severe in the ankle and dorsal foot. Heavy vascular calcifications. There is a dressing along the lateral ankle. IMPRESSION: 1. Cellulitis in the right lower extremity. No fluid collection or soft tissue gas. 2. No CT evidence of osteomyelitis. All CT scans at this medical facility are performed using dose modulation techniques as appropriate to a performed exam including the following: Automated exposure control was utilized; adjustment of the MA and/or KV according to patient size; and use of iterative reconstruction technique. Y GREENFIELD
--- NOTE | 2024-09-11 10:38 | DVH ---
EXAM: CT Head Without Intravenous Contrast CLINICAL INDICATION: Altered mental status TECHNIQUE: Axial computed tomography images of the head/brain without intravenous contrast. This CT exam was performed using one or more of the following dose reduction techniques: automated exposure control, adjustment of the mA and/or kV according to patient size, and/or use of iterative reconstruction technique. CONTRAST: COMPARISON: Comparison FINDINGS: BRAIN AND EXTRA-AXIAL SPACES: No acute intracranial hemorrhage, midline shift or mass effect. If symptoms persist, further evaluation with MRI is recommended. Areas of decreased attenuation in the deep cerebral white matter are consistent with small vessel ischemic/degenerative changes. The cerebral and cerebellar sulci are prominent consistent with brain atrophy. BONES/JOINTS: Unremarkable. No acute fracture. SOFT TISSUES: Unremarkable. SINUSES: Unremarkable as visualized. No acute sinusitis. MASTOID AIR CELLS: Unremarkable as visualized. No mastoid effusion. OTHER FINDINGS: . None. . . .. IMPRESSION: 1. No acute intracranial hemorrhage, midline shift or mass effect. If symptoms persist, further evaluation with MRI is recommended. 2. Small vessel ischemic/degenerative changes. 3. Generalized brain atrophy. Findings were discussed with Dr. Davis via phone on 09/08/2024 at 5:15 a.m.. Y GREENFIELD
[2024-09-11 10:40] LABS: Hepatitis B Surface Antigen Negative (Negative)
--- NOTE | 2024-09-11 10:42 | DVH ---
Bilateral Lower Extremity Arterial Duplex Clinical History: Bilateral feet discoloration Comparison: None Technique: Duplex Doppler evaluation including color Doppler and spectral/pulsed waveform analysis of the lower extremity arteries was performed. Findings: RIGHT: Peak systolic velocities are as follows: [employer] 108 cm/s Deep femoral 72 cm/s SFA proximal 85 cm/s SFA mid-portion 124 cm/s SFA distal 45 cm/s Popliteal 33 cm/s Posterior tibial 59 cm/s Anterior tibial 40 cm/s Peroneal na cm/s Dorsalis pedis 40 cm/s The waveforms are biphasic with diastolic flow . LEFT: Peak systolic velocities are as follows: [employer] 124 cm/s Deep femoral 48 cm/s SFA proximal 124 cm/s SFA mid-portion 79 cm/s SFA distal 72 cm/s Popliteal 323 cm/s Posterior tibial 131 cm/s Anterior tibial na cm/s Peroneal na cm/s Dorsalis pedis na cm/s The waveforms are monophasic with diastolic flow . IMPRESSION: No hemodynamically significant stenosis in the right lower extremity based on peak systolic velocity criteria. Greater than 75% stenosis of the left popliteal artery based on peak systolic velocity criteria. Nonvisualization of the left dorsalis pedis artery. Monophasic arterial waveforms in the left calf is suggestive of underlying peripheral arterial disease. REFERENCE VALUES, [facility] ([facility]) vascular Imaging Lab Criteria: Peak systolic velocity ranges (in cm/sec) are as follows: <150 cm/s - <20 % stenosis 150-200 cm/s - 20-49% stenosis 200-300 cm/s - 50-75% stenosis >300 cm/s -> 75% stenosis [facility]
[2024-09-11 10:43] LABS: Hepatitis C Antibody Negative (Negative)
[2024-09-11] MEDS: DOPamine 1600MCG/ML D5W 250 ML IV SCH (10:44)
[2024-09-11] MEDS: PIPERACILLIN-TAZOB 3.375GM 100 ML IV SCH (10:45)
[2024-09-11] MEDS: SODIUM BICARB 50mEq/50ml Vial 50 ML in SOD CHL 0.45% 1,000 ML IV SCH (11:38)
[2024-09-11] MEDS: APIXABAN 2.5 MG TAB PO SCH (11:53)
[2024-09-11] MEDS: CARVEDILOL 3.125 MG TAB PO SCH (11:54)
[2024-09-11] MEDS: SODIUM ZIRCONIUM CYCL 10 GM PAK PO ONE (12:15)
--- NOTE | 2024-09-11 12:35 | DVHSR ---
APPROVED REPORT EXAM: Two-dimensional and M-mode echocardiogram with Doppler and color Doppler. Blood Pressure: 118/64 mmHg INDICATION EF RISK FACTORS Height: 68, Weight: 165 DIMENSIONS LVDd6.7 (3.8-5.7cm)LA (2D)5.1 (1.9-4.0cm)Aortic Root4.7 (2.0-3.7cm) LVDs6.1 (2.5-4.0cm)LA (MM) (1.9-4.0cm)Aortic Cusp Exc1.3 (1.5-2.0cm) EF (%) 20.0 (55-70%)Rt. Atrium5.6 (1.9-4.0cm)Asc. Aorta cm IVSd1.0 (0.7-1.1cm)RV (D) (1.8-2.4cm) PWd1.4 (0.7-1.1cm) Mitral Valve MitralMitral Stenosis E wave0.88m/sMV Mean GR.1mmHg A wave0.63m/sMV Peak GR.98mmHg E/A ratio1.42D MVAcm2 DECEL [id number] 1/2 Piuh99ei IVRTmsDop MVA3.55cm2 Aortic Valve Aortic ValveAortic Stenosis V10.85m/Jan Mean GR.3mmHg V21.06m/Jan Peak GR.4mmHg LVOT Diameter2.5 (1.8-2.4cm)Doppler AVA3.93cm2 AI P 1/2 Kyyo703.06ms Pulmonic Valve V20.57m/s Tricuspid Valve TR Velocity2.93m/s [id number] Other Information Technically limited study due to body habitus. Patient laying flat on his back during exam. Conclusion lvef <20% by visual estimate LV dilated grade 2 diastolic dysfunction, RV dysfrunction noted and enlargement biatrial enlargement moderate to severe eccentric mitral regurg moderate tricuspid regurg mild aortic regurg severe MAC is noted
--- NOTE | 2024-09-11 12:46 | DVHINCON2 ---
JOEY STACK [facility] 09/11/24 1246: Date Seen: Sep 11, 2024 Referring Physician MINI Darling Reason for Consultation CHF History of Present Illness This is an 84-year-old male patient who presents to the emergency room with chief complaint of altered level of mentation and bilateral foot wounds. At the time of assessment, the patient remains altered and there is no family at bedside. Attempted to call number in patient's chart with no answer. Also attempted to call the patient's son who is listed as next of kin in nurse's notes, also no answer x2. History obtained from bedside RN and medical records. Cardiology has been consulted for congestive heart failure. No twelve lead electrocardiogram seen in patient's hard chart. According to ER staff, the patient has been very combative in the ER unable to obtain a twelve lead electrocardiogram at this time. Patient does have bilateral mittens in place. Initial BNP level of 1623.10pg/mL. Initial troponin level of 79ng/L flat trend thereafter. Patient denies any cardiac symptoms at time of assessment. Significant past medical history that was obtained from patient's medical records shows a history of congestive heart failure. Unable to verify any other past medical history. Past Medical History Past medical history reviewed. No other significant than mentioned above. Past Surgical History Unable to obtain Family History Family history reviewed. Social History Unable to obtain Allergies: Coded Allergies: NO KNOWN ALLERGIES (Unverified , 09/10/24) Home Meds Home medications reviewed. Current Medications Current Medications Medications (Trade) Dose Ordered Sig/Aram Route PRN Reason Start Time Stop Time Status Last Admin Calcium Gluconate/ Sodium Chloride 50 ml @ 100 mls/hr Q30M IV 09/10/24 15:00 09/10/24 15:59 DC 09/10/24 15:49 Vancomycin HCl 0 ml @ 0 mls/hr UD IV 09/11/24 04:30 Piperacillin Sod/ Tazobactam Sod 100 ml @ 25 mls/hr Q12HR IV 09/11/24 10:00 09/11/24 10:45 Furosemide (Lasix Injection) 20 mg BIDD IV 09/11/24 06:00 09/11/24 06:02 Atorvastatin Calcium (Lipitor) 40 mg HS PO 09/11/24 22:00 Carvedilol (Coreg Tablet) 6.25 mg Q12HR PO 09/11/24 10:00 09/11/24 11:54 Apixaban (Eliquis) 2.5 mg BID PO 09/11/24 10:00 09/11/24 11:53 Dextrose 1,000 ml @ 45 mls/hr [id number] IV 09/11/24 04:30 09/11/24 05:03 Ondansetron HCl (Zofran) 4 mg Q4HP PRN IV NAUSEA / VOMITING 09/11/24 04:30 Acetaminophen (Tylenol Tablet) 650 mg Q6HP PRN PO PAIN SCALE 1-3 OR TEMP>100.4 09/11/24 04:30 Nitroglycerin (Ntrostat Sublingual) 0.4 mg Q5MINP PRN SL FOR CHEST PAIN 09/11/24 04:30 Morphine Sulfate 2 mg Q30M PRN IV FOR CHEST PAIN 09/11/24 04:30 Lorazepam (Ativan Inj) 0.5 mg Q12HP PRN IV ANXIETY 09/11/24 04:45 Sodium Bicarbonate 50 ml/ Sodium Chloride 1,050 ml @ 100 mls/hr [id number] IV 09/11/24 09:30 09/11/24 11:38 Dopamine HCl/ Dextrose 250 ml @ 5.625 mls/ hr Q24H IV 09/11/24 09:30 09/11/24 10:44 Review of Systems Constitutional: No symptom reported Ears, Nose, & Throat: No symptom reported Eyes: No symptom reported Neurological: Altered level of mentation Pulmonary/Respiratory: No symptoms reported Cardiovascular: No symptom reported Gastrointestinal: No symptom reported Genitourinary: No symptom reported Musculoskeletal: No symptom reported Skin: No symptom reported Psychiatric: No symptom reported Endocrine: No symptom reported Hematologic/Lymphatic: No symptom reported Vital Signs Vital Signs Date Time Temp Pulse Resp B/P (MAP) Pulse Ox O2 Delivery O2 Flow Rate FiO2 09/11/24 11:54 79 108/60 09/11/24 10:00 17 92 09/11/24 09:32 Nasal Cannula* 2 28 09/11/24 08:00 97.8 97.8 Physical Exam General Appearance: Restless Pulmonary/Respiratory: Clear, bilateral breaths sounds. Cardiovascular/Chest: Regular rate and rhythm. Peripheral Pulses: 2+ Radial (R). 2+ Radial (L). Abdominal Exam: Normal bowel sounds. Ankle Exam: 2+ pitting edema Lower extremities: 2+ pitting edema Neuro/Mental Status: A/OX1, confused Thoughts/Psych: Deferred Appearance: No acute distress. Skin Exam: Purple discoloration to bilateral feet, open wounds to bilateral feet Labs/Diagnostic Data Labs Test 09/11/24 09:30 09/11/24 06:38 09/11/24 05:20 09/11/24 04:53 Range/Units Lactic Acid Level 2.4 *H 0.4-2.0 mmol/L Creatine Kinase 587 H 46-171 U/L Vitamin D 25-Hydroxy 74.5 30.0-100 ng/mL White Blood Count 8.9 4.4-10.8 10^3/uL Red Blood Count 4.67 4.5-5.90 10^6/uL Hemoglobin 16.1 13.5-17.5 g/dL Hematocrit 47.7 41.0-53.0 % Mean Corpuscular Volume 102.2 H 80.0-100.0 fL Mean Corpuscular Hemoglobin 34.4 H 28.0-32.0 pg Mean Corpuscular Hemoglobin Concent 33.7 32.0-36.0 g/dL Red Cell Distribution Width 15.7 H 11.8-14.3 % Platelet Count 164 140-450 10^3/uL Mean Platelet Volume 9.7 6.9-10.8 fL Neutrophils (%) (Auto) 88.6 H 37.0-80.0 % Lymphocytes (%) (Auto) 2.7 L 10.0-50.0 % Monocytes (%) (Auto) 8.0 0.0-12.0 % Eosinophils (%) (Auto) 0.1 0.0-7.0 % Basophils (%) (Auto) 0.6 0.0-2.0 % Neutrophils # (Auto) 7.9 1.6-8.6 10 ^3/uL Lymphocytes # (Auto) 0.2 L 0.4-5.4 10 ^3/uL Monocytes # (Auto) 0.7 0-1.3 10 ^3/uL Eosinophils # (Auto) 0 0-0.8 10 ^3/uL Basophils # (Auto) 0.1 0-0.2 10 ^3/uL Nucleated Red Blood Cells 3.1 % Sodium Level 138 136-145 mmol/L Potassium Level 6.8 *H 3.5-5.1 mmol/L Chloride Level 106 98-107 mmol/L Carbon Dioxide Level 19 L 20-31 mmol/L Anion Gap 13 5-15 Blood Urea Nitrogen 79 H 9-23 mg/dL Creatinine 3.51 H 0.700-1.30 mg/dL Glomerular Filtration Rate Calc 17 >90 mL/min BUN/Creatinine Ratio 22.5 H 10.0-20.0 Serum Glucose 91 74-106 mg/dL Calcium Level 9.9 8.7-10.4 mg/dL Phosphorus Level 6.0 H 2.4-5.1 mg/dL Magnesium Level 2.4 1.6-2.6 mg/dL Total Bilirubin 1.9 H 0.2-1.0 mg/dL Aspartate Amino Transferase (AST) 229 H 13-40 U/L Alanine Aminotransferase (ALT) 118 H 7-40 U/L Alkaline Phosphatase 158 H 46-116 U/L B-Type Natriuretic Peptide 854.96 0-100 pg/mL Total Protein 5.7 5.7-8.2 g/dL Albumin 3.2 3.2-4.8 g/dL Parathyroid Hormone (Intact) 171.0 H 18.4-80.1 pg/mL Hepatitis B Surface Antigen Negative Negative Hepatitis C Antibody Negative Negative Blood Gas Specimen Type Arterial Blood Gas Sample Site Right radial Blood Gas Patient Temperature 37.0 Arterial Blood Date Drawn [id number] Arterial Blood pH 7.379 7.350-7.450 Arterial Blood Partial Pressure CO2 38.8 35.0-48.0 mmHg Arterial Blood Partial Pressure O2 75.7 L 83.0-108.0 mmHg Arterial Blood HCO3 22.4 21.0-28.0 mmol/L Arterial Blood Oxygen Saturation 94.1 94.0-98.0 % Arterial Blood Base Excess -2.4 L -2.0-3.0 mmol/L Arterial Blood Oxyhemoglobin 92.1 L 94.0-98.0 % Arterial Blood Carboxyhemoglobin 1.5 0.5-1.5 % Arterial Blood Methemoglobin 0.6 0.0-1.5 % Kirk Test Modified Blood Gas Total Hemoglobin 16.10 13.5-17.5 g/dL Blood Gas Liter Flow 4.00 Blood Gas Modality Nasal cannula FiO2 % 32.0 Test 09/10/24 23:45 09/10/24 21:31 2/9/25 16:56 09/10/24 12:45 Range/Units Urine Color Yellow Yellow Urine Clarity Turbid H Clear Urine pH 5.0 5.0-9.0 Urine Specific [place] 1.020 1.001-1.035 Urine Protein 1+ H Negative Urine Ketones Negative Negative Urine Blood 2+ H Negative /uL Urine Nitrite Negative Negative Urine Bilirubin Negative Negative Urine Urobilinogen Normal Negative mg/dL Urine Leukocyte Esterase Negative Negative /uL Urine RBC 58 0 - 3 /hpf Urine Microscopic WBC 5 H 0-3 /HPF Urine Squamous Epithelial Cells Few <5 /hpf Urine Bacteria Few H None Seen /hpf Urine Hyaline Casts Mod 0 - 2 /lpf Urine Mucus Few None Seen Urine Glucose Normal Normal mg/dL POC Glucose 76 70-106 mg/dl Troponin I High Sensitivity 80 *H </=54 ng/L Differential Total Cells Counted 100.0 100 Neutrophils % (Manual) 87 H 37.0-80.0 Band Neutrophils % (Manual) 3 Lymphocytes % (Manual) 5 L 10.0-50.0 Monocytes % (Manual) 5 0-12 Eosinophils % (Manual) 0 0-7 Basophils % (Manual) 0 0.0-2.0 Metamyelocytes % (manual) 0 Myelocytes % (Manual) 0 Promyelocytes % (Manual) 0 Blast Cells % (Manual) 0 Reactive Lymphocytes 0 Platelet Estimate Adequate Clumped Platelets Few Anisocytosis (manual) Slight Macrocytosis Slight Assessment Acute on chronic decompensated HFrEF, NYHA class III NSTEMI Severe peripheral arterial disease Mitral valve regurgitation, moderate to severe degree Tricuspid valve regurgitation, moderate degree Sepsis Hyperkalemia Acute kidney injury Transaminitis Plan/Recommendation We will continue with following plan/recommendations (Dr. Kennedy): * Echocardiogram reveals EF less than 20%, grade 2 diastolic dysfunction * Initiate GDMT for CHF with optimal renal function * Strict intake and output, daily weights, maintain fluid restriction * Diuretics as tolerated * Nephrology consult and recommendations * Close Cardiac surveillance Case discussed with . Continue with medical management. Thank you for allowing us to care for this patient. Please call with any questions or concerns. Critical care time spent: 40 minutes This medical document was created using an electronic medical record system with voice recognition software and computerized dictation system. Although this document has been carefully reviewed, there might still be some phonetic and typographical errors. Occasional wrong-word or ``sound-alike substitutions may have occurred due to the inherent limitations of voice recognition software. These areas are purely typographical due to imperfections of the software pro grams and do not reflect any compromise in the patient's medical care. Please read the chart carefully and recognize, using context, where these substitutions have occurred. Plan discussed with: Patient, Other (Bedside RN) NYHA Physical activity limitations: Class3(Marked) ordinary (activity causes symtoms) Date of Service: Sep 11, 2024 Billing Provider: JOEY STACK Cardiology Common Codes: 42549-[id number] INP/OBS CARE (High) Cardiology Consultation Codes: [id number] CONSULT <45MIN MATTEO KENNEDY MD 09/11/241958: Allergies: Coded Allergies: NO KNOWN ALLERGIES (Unverified , 09/10/24) Plan/Recommendation severe end stage HF iv bumex x1 poor uop multirogan failure poor prognosis pressors as needed 40 mins critical care time spent Plan discussed with: Patient JOEY STACK Sep 11, 2024 12:46 MATTEO KENNEDY MD Sep 11, 2024 19:59
--- NOTE | 2024-09-11 14:09 | DVHPN2 ---
Progress Note Date Seen: Sep 11, 2024 Medical Necessity Reason Pt with a Central, PICC or Fol: Yes The following are medically ne: Lozoya Catheter Reason for lozoya catheter: Strict I&O Subjective Patient reports: No new complaints Review of Systems: HEENT:Normal, CVS:Normal, RESPIRATORY:Normal, GI:Normal, :Normal, MSK:Normal, NEURO:Normal Objective vital signs Vital Sign Date Time Temp Pulse Resp B/P (MAP) Pulse Ox O2 Delivery O2 Flow Rate FiO2 09/11/24 12:55 81 118/64 09/11/24 10:00 17 92 09/11/24 09:32 Nasal Cannula* 2 28 09/11/24 08:00 97.8 97.8 Total Intake and Output 09/10/24 09/10/24 09/11/24 15:00 23:00 07:00 Intake Total 2325.0 ml 57.5 ml Balance 2325.0 ml 57.5 ml medications Current Medications Medications Dose Ordered Sig/Aram Route Start Time Stop Time Status Last Admin Dose Admin Vancomycin HCl 0 ml @ 0 mls/hr UD IV 09/11/24 04:30 Piperacillin Sod/ Tazobactam Sod 100 ml @ 25 mls/hr Q12HR IV 09/11/24 10:00 09/11/24 10:45 25 MLS/HR Furosemide 20 mg BIDD IV 09/11/24 06:00 09/11/24 06:02 20 MG Atorvastatin Calcium 40 mg HS PO 09/11/24 22:00 Carvedilol 6.25 mg Q12HR PO 09/11/24 10:00 09/11/24 11:54 6.25 MG Dextrose 1,000 ml @ 45 mls/hr [id number] IV 09/11/24 04:30 09/11/24 05:03 45 MLS/HR Ondansetron HCl 4 mg Q4HP PRN IV 09/11/24 04:30 Acetaminophen 650 mg Q6HP PRN PO 09/11/24 04:30 Nitroglycerin 0.4 mg Q5MINP PRN SL 09/11/24 04:30 Morphine Sulfate 2 mg Q30M PRN IV 09/11/24 04:30 Lorazepam 0.5 mg Q12HP PRN IV 09/11/24 04:45 Sodium Bicarbonate 50 ml/ Sodium Chloride 1,050 ml @ 100 mls/hr [id number] IV 09/11/24 09:30 09/11/24 11:38 100 MLS/HR Dopamine HCl/ Dextrose 250 ml @ 5.625 mls/ hr Q24H IV 09/11/24 09:30 09/11/24 10:44 5.625 MLS/HR Examination: GENERAL:Normal, HEENT:Normal, NECK:Normal, LUNGS:Normal, LUNGS:Abnormal (on oxygen), CVS:Normal, ABDOMEN:Normal, MSK:Normal, MSK:Abnormal (gangrene, cellulitis, ulcers both legs), SKIN:Normal, NEURO:Normal, NEURO:Abnormal (confused), :Normal laboratory and microbiology Laboratory Tests 09/11/24 05:20 Test 09/11/24 05:20 Range/Units Serum Glucose 91 74-106 mg/dL Microbiology Date/Time Source Procedure Growth Status 09/10/24 12:45 Blood Blood Culture - Preliminary NO GROWTH AFTER 24 HOURS OF INCUBATION. Resulted Problem List/Assessment/Plan Problem List/Assessment/Plan #1 acute resp failure: cont oxygen #2 encephalopathy- toxic/metabolic #3 gangrene/cellulitis both legs with sepsis: iv antibiotics, surg eval #4 pvd #5 acute systolic heart failure #6 nstemi: cardio eval #7 acute liver failure #8 acute renal failure ?vasomotor nephropathy #9 hyperkalemia: repeat K Plan discussed with: Patient My Orders My Orders Orders - PRADIP ORTIZ MD Procedure Category Date Status Time Basic Metabolic Panel LAB 09/11/24 Logged 16:00 Complete Blood Count LAB 09/12/24 Verified 06:00 Comprehensive LAB 09/12/24 Verified Metabolic Panel 06:00 Chest Portable XY 09/12/24 Logged 06:00 PTPTT LAB 09/12/24 Verified 04:00 Vitamin B12 LAB 09/12/24 Verified 06:00 Enoxaparin Sodium PHA 09/12/24 Transmitted (Lovenox) 10:00 Critical Care Time (mins): 42 (critical care time 42 mins excluding procedures) Date of Service: Sep 11, 2024 Billing Provider: PRADIP ORTIZ MD Common Visit Codes: [id number]-[id number] CARE 30-74 MIN PRADIP ORTIZ MD Sep 11, 2024 14:09
[2024-09-11 14:29] LABS: Triglycerides 73 mg/dL (< 150)
[2024-09-11 14:30] LABS: LDL Cholesterol 40 mg/dL (< 100)
[2024-09-11 14:31] LABS: Cholesterol 83 mg/dL (< 200)
[2024-09-11 14:32] LABS: HDL Cholesterol 30 mg/dL (40-59)
[2024-09-11] MEDS: LORazepam 2MG/ML-1ML VIAL IV PRN (15:49)
[2024-09-11 16:27] LABS: Protein, Urine 72.7 mg/dL (1-14)
[2024-09-11 16:30] LABS: Creatinine, Urine 41.61 mg/dL (30.0-125.0); Urine Protein/Creatinine Ratio 1.75
[2024-09-11 16:34] LABS: Amphetamine Screen, Urine Neg (NEGATIVE); Barbiturate Scree,Urine Neg (NEGATIVE); Benzodiazephine Screen, Urine Neg (NEGATIVE); Cannabinoid Screen, Urine Neg (NEGATIVE); Cocaine Screen, Urine Neg (NEGATIVE); Opiate Scree,Urine Neg (NEGATIVE); Phencyclidine Screen, Urine Neg (NEGATIVE)
[2024-09-11 16:46] LABS: Chloride 104 mmol/L (98-107); Sodium 140 mmol/L (136-145)
[2024-09-11 16:47] LABS: Anion Gap 9 (5-15); Calcium 9.3 mg/dL (8.7-10.4); Carbon Dioxide 27 mmol/L (20-31); Potassium 5.2 mmol/L (3.5-5.1)
[2024-09-11 16:52] LABS: BUN/Creatinine Ratio 28.4 (10.0-20.0)
[2024-09-11 17:05] LABS: Glucose 156 mg/dL (74-106)
[2024-09-11 17:06] LABS: Blood Urea Nitrogen 98 mg/dL (9-23)
[2024-09-11 20:00] VITALS: BP 126/89; PULSE 75; PULSE 76; PULSE 96; RESP 15; RESP 20; TEMP 98.2; O2SAT 93; O2SAT 96
[2024-09-11] MEDS: VANCOMYCIN 750MG KIT 100 ML IV ONE (20:21)
[2024-09-11] MEDS: BUMETANIDE 2.5mg/10ml (0.25 mg/ml) INJ IV ONE (20:38)
[2024-09-11 21:00] VITALS: BP 128/80; PULSE 94; RESP 27; O2SAT 95
[2024-09-11] MEDS: SODIUM BICARB 8.4% 50Meq/50ml SYR Vial IV ONE (21:19)
[2024-09-11 22:00] VITALS: BP 112/81; PULSE 97; RESP 30; O2SAT 93; O2SAT 94
[2024-09-11] MEDS: ATORVASTATIN 20 MG TAB PO SCH (22:00)
[2024-09-11 23:00] VITALS: BP 111/84; PULSE 92; RESP 30; O2SAT 99
[2024-09-12] VITALS (9 sets, daily range): BP systolic 97–135; BP diastolic 50–88; PULSE 75–93; RESP 10–26; TEMP 98.4–99; O2SAT 93–98
--- NOTE | 2024-09-12 05:21 | DVH ---
EXAM: XR Chest, 1 View CLINICAL INDICATION: chf TECHNIQUE: Frontal view of the chest. COMPARISON: None FINDINGS: LUNGS AND PLEURAL SPACES: See below. HEART: Cardiomegaly with pulmonary congestion and edema. Superimposed pneumonia cannot be excluded. MEDIASTINUM: Unremarkable. Normal mediastinal contour. BONES/JOINTS: Unremarkable. No acute fracture. OTHER FINDINGS: . None. . .. IMPRESSION: Cardiomegaly with pulmonary congestion and edema. Superimposed pneumonia cannot be excluded.
[2024-09-12 08:29] LABS: Basophils # (auto) 0 10 ^3/uL (0-0.2); Basophils % (auto) 0.2 % (0.0-2.0); Eosinophils # (auto) 0.1 10 ^3/uL (0-0.8); Eosinophils % (auto) 0.8 % (0.0-7.0); Hematocrit 42.4 % (41.0-53.0); Hemoglobin 14.2 g/dL (13.5-17.5); Lymphocytes # (auto) 0.3 10 ^3/uL (0.4-5.4); Lymphocytes % (auto) 3.5 % (10.0-50.0); Mean Corpuscular Hemoglobin 34.2 pg (28.0-32.0); Mean Corpuscular Hgb Conc. 33.5 g/dL (32.0-36.0); Monocytes % (auto) 11.8 % (0.0-12.0); Neutrophils # (auto) 6.9 10 ^3/uL (1.6-8.6); Neutrophils % (auto) 83.7 % (37.0-80.0); Nucleated Red Blood Cells % 0.6 %; Platelet Count (auto) 115 10^3/uL (140-450); Red Blood Cells 4.16 10^6/uL (4.5-5.90); Red Cell Distribution Width 15.9 % (11.8-14.3); White Blood Cell 8.2 10^3/uL (4.4-10.8)
[2024-09-12 08:38] LABS: INR 1.82 (0.9-1.15); Partial Thromboplastin Time 49.2 SEC (24.5-34.5); Prothrombin Time 18.2 sec (9.3-11.8)
[2024-09-12 08:52] LABS: Anion Gap 7 (5-15); BUN/Creatinine Ratio 30.5 (10.0-20.0); Calcium 9.2 mg/dL (8.7-10.4); Carbon Dioxide 31 mmol/L (20-31); Chloride 102 mmol/L (98-107); Potassium 4.4 mmol/L (3.5-5.1); Sodium 140 mmol/L (136-145)
[2024-09-12 09:00] LABS: Alanine Aminotransferase 94 U/L (7-40); Alkaline Phosphatase 142 U/L (46-116); Aspartate Aminotransferase 141 U/L (13-40); Bilirubin, Total 1.7 mg/dL (0.2-1.0); Glucose 122 mg/dL (74-106); Total Protein 5.1 g/dL (5.7-8.2)
[2024-09-12 09:03] LABS: Blood Urea Nitrogen 86 mg/dL (9-23)
[2024-09-12] MEDS: ENOXAPARIN SOD 30 MG/0.3 ML SYRINGE SC SCH (10:00)
--- NOTE | 2024-09-12 11:24 | DVHPN2 ---
Consult Progress Note Subjective Other Systems: Patient in normal sinus rhythm with depressed T waves on monitor. Nursing staff has been unable to get a twelve lead electrocardiogram given that the patient becomes combative. Objective vital signs Vital Sign Date Time Temp Pulse Resp B/P (MAP) Pulse Ox O2 Delivery O2 Flow Rate FiO2 09/12/24 10:01 81 15 106/73 (84) 98 09/12/24 07:30 Simple Mask* 10 99 09/12/24 04:00 99.0 99.0 Total Intake and Output 09/11/24 09/11/24 09/12/24 15:00 23:00 07:00 Intake Total 670.625 ml 1363.750 ml 1605.625 ml Output Total 2300 ml 1850 ml Balance 670.625 ml -936.250 ml -244.375 ml medications Current Medications Medications Dose Ordered Sig/Aram Route Start Time Stop Time Status Last Admin Dose Admin Vancomycin HCl 0 ml @ 0 mls/hr UD IV 09/11/24 04:30 Piperacillin Sod/ Tazobactam Sod 100 ml @ 25 mls/hr Q12HR IV 09/11/24 10:00 09/12/24 10:42 Furosemide 20 mg BIDD IV 09/11/24 06:00 09/12/24 05:22 Atorvastatin Calcium 40 mg HS PO 09/11/24 22:00 Carvedilol 6.25 mg Q12HR PO 09/11/24 10:00 09/11/24 11:54 Dextrose 1,000 ml @ 45 mls/hr [id number] IV 09/11/24 04:30 09/12/24 02:47 Ondansetron HCl 4 mg Q4HP PRN IV 09/11/24 04:30 Acetaminophen 650 mg Q6HP PRN PO 09/11/24 04:30 Nitroglycerin 0.4 mg Q5MINP PRN SL 09/11/24 04:30 Morphine Sulfate 2 mg Q30M PRN IV 09/11/24 04:30 Lorazepam 0.5 mg Q12HP PRN IV 09/11/24 04:45 09/11/24 15:49 Sodium Bicarbonate 50 ml/ Sodium Chloride 1,050 ml @ 100 mls/hr [id number] IV 09/11/24 09:30 09/12/24 07:32 Dopamine HCl/ Dextrose 250 ml @ 5.625 mls/ hr Q24H IV 09/11/24 09:30 09/12/24 09:46 Enoxaparin Sodium 30 mg DAILY SC 09/12/24 10:00 Examination: GENERAL:Abnormal (Generalized weakness), LUNGS:Normal, CVS:Normal, NEURO:Abnormal (Confused) laboratory and microbiology Laboratory Tests 09/12/24 07:50 Test 09/12/24 07:50 Range/Units Serum Glucose 122 H 74-106 mg/dL Problem List/Assessment/Plan Problem List/Assessment/Plan 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 Betancourt): * Echocardiogram reveals EF less than 20%, grade 2 diastolic dysfunction * Initiate GDMT for CHF with optimal renal function * Strict intake and output, daily weights, maintain fluid restriction * Diuretics as tolerated * Close Cardiac surveillance Case discussed with . Continue with supportive medical management. Thank you for allowing us to care for this patient. Please call with any questions or concerns. Critical care time spent: 40 minutes.This medical document was created using an electronic medical record system with voice recognition software and computerized dictation system. Although this document has been carefully reviewed, there might still be some phonetic and typographical errors. Occasional wrong-word or ``sound-alike substitutions may have occurred due to the inherent limitations of voice recognition software. These areas are purely typographical due to imperfections of the software programs and do not reflect any compromise in the patient's medical care. Please read the chart carefully and recognize, using context, where these substitutions have occurred. Plan discussed with: Patient, Other (Bedside RN) Date of Service: Sep 12, 2024 Billing Provider: JOEY STACK Common Visit Codes: [id number] INP/OBS CARE(HIGH) JOEY STACK Sep 12, 2024 11:24
--- NOTE | 2024-09-12 11:52 | DVHPN2 ---
Progress Note Date Seen: Sep 12, 2024 Medical Necessity Reason Pt with a Central, PICC or Fol: Yes The following are medically ne: Lozoya Catheter Reason for lozoya catheter: Strict I&O Subjective Patient reports: No new complaints Review of Systems: HEENT:Normal, CVS:Normal, RESPIRATORY:Normal, GI:Normal, :Normal, MSK:Normal, NEURO:Normal Objective vital signs Vital Sign Date Time Temp Pulse Resp B/P (MAP) Pulse Ox O2 Delivery O2 Flow Rate FiO2 09/12/24 11:00 106/73 09/12/24 10:01 81 15 98 09/12/24 07:30 Simple Mask* 10 99 09/12/24 04:00 99.0 99.0 Total Intake and Output 09/11/24 09/11/24 09/12/24 15:00 23:00 07:00 Intake Total 670.625 ml 1363.750 ml 1605.625 ml Output Total 2300 ml 1850 ml Balance 670.625 ml -936.250 ml -244.375 ml medications Current Medications Medications Dose Ordered Sig/Aram Route Start Time Stop Time Status Last Admin Dose Admin Vancomycin HCl 0 ml @ 0 mls/hr UD IV 09/11/24 04:30 Piperacillin Sod/ Tazobactam Sod 100 ml @ 25 mls/hr Q12HR IV 09/11/24 10:00 09/12/24 10:42 25 MLS/HR Furosemide 20 mg BIDD IV 09/11/24 06:00 09/12/24 05:22 20 MG Atorvastatin Calcium 40 mg HS PO 09/11/24 22:00 Carvedilol 6.25 mg Q12HR PO 09/11/24 10:00 09/11/24 11:54 6.25 MG Dextrose 1,000 ml @ 45 mls/hr [id number] IV 09/11/24 04:30 09/12/24 02:47 45 MLS/HR Ondansetron HCl 4 mg Q4HP PRN IV 09/11/24 04:30 Acetaminophen 650 mg Q6HP PRN PO 09/11/24 04:30 Nitroglycerin 0.4 mg Q5MINP PRN SL 09/11/24 04:30 Morphine Sulfate 2 mg Q30M PRN IV 09/11/24 04:30 Lorazepam 0.5 mg Q12HP PRN IV 09/11/24 04:45 09/11/24 15:49 0.5 MG Sodium Bicarbonate 50 ml/ Sodium Chloride 1,050 ml @ 100 mls/hr [id number] IV 09/11/24 09:30 09/12/24 07:32 100 MLS/HR Dopamine HCl/ Dextrose 250 ml @ 5.625 mls/ hr Q24H IV 09/11/24 09:30 09/12/24 09:46 5.625 MLS/HR Enoxaparin Sodium 30 mg DAILY SC 09/12/24 10:00 Examination: GENERAL:Normal, HEENT:Normal, NECK:Normal, LUNGS:Normal, LUNGS:Abnormal (on oxygen, rales), CVS:Normal, ABDOMEN:Normal, MSK:Normal, MSK:Abnormal (ulcers, cellulitis both legs), SKIN:Normal, NEURO:Normal, :Normal laboratory and microbiology Laboratory Tests 09/12/24 07:50 Test 09/12/24 07:50 Range/Units Serum Glucose 122 H 74-106 mg/dL Microbiology Date/Time Source Procedure Growth Status 09/11/24 16:31 Leg Right Gram Stain - Final Resulted 09/11/24 16:31 Leg Right Wound Culture - Preliminary Resulted 09/10/24 12:45 Blood Blood Culture - Preliminary NO GROWTH AFTER 24 HOURS OF INCUBATION. Resulted Problem List/Assessment/Plan Problem List/Assessment/Plan #1 acute resp failure: cont oxygen #2 encephalopathy- toxic/metabolic #3 gangrene/cellulitis both legs with sepsis: iv antibiotics, surg eval #4 pvd #5 acute systolic heart failure: lasix iv #6 nstemi: cardio eval #7 acute liver failure #8 acute renal failure ?vasomotor nephropathy #9 hyperkalemia: repeat K #10 thrombocytopenia: dc lovenox advance care planning- full code- time spent 19 mins Plan discussed with: Patient My Orders My Orders Orders - PRADIP ORTIZ MD Procedure Category Date Status Time Chest Portable XY 09/12/24 Resulted 06:00 Enoxaparin Sodium PHA 09/12/24 In Process (Lovenox) 10:00 Wound Culture W/ Gs ELIZABETH 09/11/24 In Process 16:20 Wound Culture W/ Gs ELIZABETH 09/11/24 In Process 16:20 Cleanse Wound With JANNET 2/10/25 In Process Wound Clean 16:00 Date of Service: Sep 12, 2024 Billing Provider: PRADIP ORTIZ MD Common Visit Codes: [id number] INP/OBS CARE(HIGH) Secondary Visit Codes: [id number] CARE PLAN 30 MINUTES PRADIP ORTIZ MD Sep 12, 2024 11:52
[2024-09-12] MEDS ORDERED: LINEZOLID 600MG/300ML 300 ML IV SCH (12:00)
[2024-09-12] MEDS: SODIUM BICARB 50mEq/50ml Vial 50 ML in SOD CHL 0.45% 1,000 ML IV SCH (12:22)
--- NOTE | 2024-09-12 13:34 | DVHPN2 ---
Progress Note Date Seen: Sep 12, 2024 Medical Necessity Reason Pt with a Central, PICC or Fol: Yes The following are medically ne: Lozoya Catheter Reason for lozoya catheter: Strict I&O Subjective Patient reports: No new complaints Other Systems: Patient seen and examined by myself today in follow-up Objective vital signs Vital Sign Date Time Temp Pulse Resp B/P (MAP) Pulse Ox O2 Delivery O2 Flow Rate FiO2 09/12/24 12:00 83 09/12/24 11:00 106/73 09/12/24 10:01 15 98 09/12/24 07:30 Simple Mask* 10 99 09/12/24 04:00 99.0 99.0 Total Intake and Output 09/11/24 09/11/24 09/12/24 15:00 23:00 07:00 Intake Total 670.625 ml 1363.750 ml 1605.625 ml Output Total 2300 ml 1850 ml Balance 670.625 ml -936.250 ml -244.375 ml medications Current Medications Medications Dose Ordered Sig/Aram Route Start Time Stop Time Status Last Admin Dose Admin Piperacillin Sod/ Tazobactam Sod 100 ml @ 25 mls/hr Q12HR IV 09/11/24 10:00 09/12/24 10:42 25 MLS/HR Furosemide 20 mg BIDD IV 09/11/24 06:00 09/12/24 05:22 20 MG Atorvastatin Calcium 40 mg HS PO 09/11/24 22:00 Dextrose 1,000 ml @ 45 mls/hr [id number] IV 09/11/24 04:30 09/12/24 02:47 45 MLS/HR Ondansetron HCl 4 mg Q4HP PRN IV 09/11/24 04:30 Acetaminophen 650 mg Q6HP PRN PO 09/11/24 04:30 Nitroglycerin 0.4 mg Q5MINP PRN SL 09/11/24 04:30 Morphine Sulfate 2 mg Q30M PRN IV 09/11/24 04:30 Lorazepam 0.5 mg Q12HP PRN IV 09/11/24 04:45 09/11/24 15:49 0.5 MG Dopamine HCl/ Dextrose 250 ml @ 5.625 mls/ hr Q24H IV 09/11/24 09:30 09/12/24 09:46 5.625 MLS/HR Sodium Bicarbonate 50 ml/ Sodium Chloride 1,050 ml @ 75 mls/hr Q14H IV 09/12/24 12:00 09/12/24 12:22 75 MLS/HR Carvedilol 3.125 mg Q12HR PO 09/12/24 22:00 Linezolid 300 ml @ 150 mls/hr Q12H IV 09/12/24 14:00 Examination: LUNGS:Normal, CVS:Normal, MSK:Normal laboratory and microbiology Laboratory Tests 09/12/24 07:50 Test 09/12/24 07:50 Range/Units Serum Glucose 122 H 74-106 mg/dL Microbiology Date/Time Source Procedure Growth Status 09/11/24 16:31 Leg Right Gram Stain - Final Resulted 09/11/24 16:31 Leg Right Wound Culture - Preliminary Resulted 09/10/24 12:45 Blood Blood Culture - Preliminary NO GROWTH AFTER 48 HOURS OF INCUBATION. Resulted Problem List/Assessment/Plan Problem List/Assessment/Plan Acute kidney injury superimposed Chronic Kidney Disease secondary hemodynamic mediated aTN, FeNa > 2% Acute hypoxic respiratory failure, on O2 Hyperkalemia Metabolic acidosis, resolved Bilateral foot gangrene/ischemia Peripheral arterial disease Hepatic encephalopathy Jaundice Transaminitis Sepsis Elevated troponin Recommendations Kidney function continue to improve Increased urine output Hyperkalemia resolved Lozoya catheter Strict I&Os kidney ultrasound reported within normal limit IV antibiotics IVF half NS at 75 cc/hour Low-dose dopamine Podiatry consult GI consult We will continue to follow Plan discussed with: Patient My Orders My Orders Orders - GEORGIA MAYA MD Procedure Category Date Status Time Linezolid 600mg/300ml PHA 09/12/24 In Process (Zyvox) 14:00 GEORGIA MAYA MD Sep 12, 2024 13:34
[2024-09-12] MEDS: SOD CHL 0.45% 1,000 ML IV SCH (14:04)
[2024-09-12] MEDS: LINEZOLID 600MG/300ML 300 ML IV SCH (14:04)
--- NOTE | 2024-09-12 16:20 | DVHINCON2 ---
Date Seen: Sep 12, 2024 Reason for Consultation Bilateral foot wounds History of Present Illness 84-year-old male presents for evaluation of altered mental status. Patient is currently confused and can not provide history. Patient presents with altered mental status and bilateral foot wounds. CT of the head has been ordered by this provider and is currently pending. Patient is alert but does not respond to questions or follow commands. Noted discoloration and multiple open wounds to bilateral feet. No further history could be obtained at the moment. Past Medical History See H&P Past Surgical History See H&P Allergies: Coded Allergies: NO KNOWN ALLERGIES (Unverified , 09/10/24) Current Medications Current Medications Medications (Trade) Dose Ordered Sig/Aram Route PRN Reason Start Time Stop Time Status Last Admin Atorvastatin Calcium (Lipitor) 40 mg HS PO 09/11/24 22:00 Enoxaparin Sodium (Lovenox) 30 mg DAILY SC 09/12/24 10:00 09/12/24 11:50 DC Sodium Bicarbonate 50 ml/ Sodium Chloride 1,050 ml @ 75 mls/hr Q14H IV 09/12/24 12:00 09/12/24 13:36 DC 09/12/24 12:22 Carvedilol (Coreg Tablet) 3.125 mg Q12HR PO 09/12/24 22:00 Linezolid 300 ml @ 150 mls/hr Q12HR IV 09/12/24 12:00 09/12/24 11:54 DC Linezolid 300 ml @ 150 mls/hr Q12H IV 09/12/24 14:00 09/12/24 14:04 Sodium Chloride 1,000 ml @ 75 mls/hr [id number] IV 09/12/24 13:45 09/12/24 14:04 Vital Signs Vital Signs Date Time Temp Pulse Resp B/P (MAP) Pulse Ox O2 Delivery O2 Flow Rate FiO2 09/12/24 15:00 114/70 09/12/24 15:00 78 17 97 09/12/24 07:30 Simple Mask* 10 99 09/12/24 04:00 99.0 99.0 Physical Exam DERMATOLOGIC EXAM: - Skin is dry and cool to the touch dry bilaterally. - Nails 1-5 of the bilateral foot are thickened, discolored, dystrophic, and tender to palpate with subungual debris - Hair loss noted to bilateral feet - multiple areas of gangrene bilateral foot VASCULAR EXAM: - DP and PT pulses are palpable bilaterally. - CLINICAL AUDITOR is brisk to all digits. - Feet are cool to touch compared to lower legs bilaterally. NEUROLOGIC EXAM: - Normal light touch sensation to the superficial peroneal, deep peroneal, sural, saphenous, and tibial nerve branches. - Protective sensation is diminished as tested with a 5.07 10g [place] bilaterally. MUSCULOSKELETAL EXAM: - No gross deformities - Muscle strength is 5/5 and active motion is pain-free and symmetrical bilaterally - No pain or crepitation with passive range of motion bilaterally to all major pedal joints Labs/Diagnostic Data Labs Test 09/12/24 14:09 09/12/24 07:50 09/11/24 14:25 09/11/24 13:29 Range/Units POC Glucose 114 H 70-106 mg/dl White Blood Count 8.2 4.4-10.8 10^3/uL Red Blood Count 4.16 L 4.5-5.90 10^6/uL Hemoglobin 14.2 13.5-17.5 g/dL Hematocrit 42.4 # 41.0-53.0 % Mean Corpuscular Volume 102.0 H 80.0-100.0 fL Mean Corpuscular Hemoglobin 34.2 H 28.0-32.0 pg Mean Corpuscular Hemoglobin Concent 33.5 32.0-36.0 g/dL Red Cell Distribution Width 15.9 H 11.8-14.3 % Platelet Count 115 L 140-450 10^3/uL Mean Platelet Volume 9.4 6.9-10.8 fL Neutrophils (%) (Auto) 83.7 H 37.0-80.0 % Lymphocytes (%) (Auto) 3.5 L 10.0-50.0 % Monocytes (%) (Auto) 11.8 0.0-12.0 % Eosinophils (%) (Auto) 0.8 0.0-7.0 % Basophils (%) (Auto) 0.2 0.0-2.0 % Neutrophils # (Auto) 6.9 1.6-8.6 10 ^3/uL Lymphocytes # (Auto) 0.3 L 0.4-5.4 10 ^3/uL Monocytes # (Auto) 1.0 0-1.3 10 ^3/uL Eosinophils # (Auto) 0.1 0-0.8 10 ^3/uL Basophils # (Auto) 0 0-0.2 10 ^3/uL Nucleated Red Blood Cells 0.6 % Prothrombin Time 18.2 H 9.3-11.8 sec Prothrombin Time INR 1.82 H 0.9-1.15 Activated Partial Thromboplast Time 49.2 H 24.5-34.5 SEC Sodium Level 140 136-145 mmol/L Potassium Level 4.4 3.5-5.1 mmol/L Chloride Level 102 98-107 mmol/L Carbon Dioxide Level 31 20-31 mmol/L Anion Gap 7 5-15 Blood Urea Nitrogen 86 #*H 9-23 mg/dL Creatinine 2.82 H 0.700-1.30 mg/dL Glomerular Filtration Rate Calc 22 >90 mL/min BUN/Creatinine Ratio 30.5 H 10.0-20.0 Serum Glucose 122 H 74-106 mg/dL Calcium Level 9.2 8.7-10.4 mg/dL Total Bilirubin 1.7 H 0.2-1.0 mg/dL Aspartate Amino Transferase (AST) 141 H 13-40 U/L Alanine Aminotransferase (ALT) 94 H 7-40 U/L Alkaline Phosphatase 142 H 46-116 U/L Total Protein 5.1 L 5.7-8.2 g/dL Albumin 3.0 L 3.2-4.8 g/dL Vitamin B12 Level 1665 H 211-911 pg/mL Random Vancomycin Level 12.6 H 5-10 ug/mL Urine Creatinine 41.61 30.0-125.0 mg/dL Urine Protein/Creatinine Ratio 1.75 Urine Sodium 77 40-220 mmol/L Urine Total Protein 72.7 H 1-14 mg/dL Urine Opiates Screen Neg NEGATIVE Urine Fentanyl Screen Neg NEGATIVE Urine Barbiturates Screen Neg NEGATIVE Urine Phencyclidine Screen Neg NEGATIVE Urine Amphetamines Screen Neg NEGATIVE Urine Benzodiazepines Screen Neg NEGATIVE Urine Cocaine Screen Neg NEGATIVE Urine Cannabinoids Screen Neg NEGATIVE Hemoglobin A1c 6.1 H <5.7 % A1C Ammonia < 10 L 11-32 umol/L Triglycerides Level 73 < 150 mg/dL Cholesterol Level 83 < 200 mg/dL LDL Cholesterol 40 < 100 mg/dL HDL Cholesterol 30 L 40-59 mg/dL Thyroid Stimulating Hormone (TSH) 13.17 H 0.55-4.78 uIU/mL Test 09/11/24 09:30 09/11/24 06:38 09/11/24 05:20 09/11/24 04:53 Range/Units Lactic Acid Level 2.4 *H 0.4-2.0 mmol/L Creatine Kinase 587 H 46-171 U/L Vitamin D 25-Hydroxy 74.5 30.0-100 ng/mL Phosphorus Level 6.0 H 2.4-5.1 mg/dL Magnesium Level 2.4 1.6-2.6 mg/dL B-Type Natriuretic Peptide 854.96 0-100 pg/mL Parathyroid Hormone (Intact) 171.0 H 18.4-80.1 pg/mL Hepatitis B Surface Antigen Negative Negative Hepatitis C Antibody Negative Negative Blood Gas Specimen Type Arterial Blood Gas Sample Site Right radial Blood Gas Patient Temperature 37.0 Arterial Blood Date Drawn [id number] Arterial Blood pH 7.379 7.350-7.450 Arterial Blood Partial Pressure CO2 38.8 35.0-48.0 mmHg Arterial Blood Partial Pressure O2 75.7 L 83.0-108.0 mmHg Arterial Blood HCO3 22.4 21.0-28.0 mmol/L Arterial Blood Oxygen Saturation 94.1 94.0-98.0 % Arterial Blood Base Excess -2.4 L -2.0-3.0 mmol/L Arterial Blood Oxyhemoglobin 92.1 L 94.0-98.0 % Arterial Blood Carboxyhemoglobin 1.5 0.5-1.5 % Arterial Blood Methemoglobin 0.6 0.0-1.5 % Kirk Test Modified Blood Gas Total Hemoglobin 16.10 13.5-17.5 g/dL Blood Gas Liter Flow 4.00 Blood Gas Modality Nasal cannula FiO2 % 32.0 Test 09/10/24 23:45 09/10/24 16:56 09/10/24 12:45 Range/Units Urine Color Yellow Yellow Urine Clarity Turbid H Clear Urine pH 5.0 5.0-9.0 Urine Specific [place] 1.020 1.001-1.035 Urine Protein 1+ H Negative Urine Ketones Negative Negative Urine Blood 2+ H Negative /uL Urine Nitrite Negative Negative Urine Bilirubin Negative Negative Urine Urobilinogen Normal Negative mg/dL Urine Leukocyte Esterase Negative Negative /uL Urine RBC 58 0 - 3 /hpf Urine Microscopic WBC 5 H 0-3 /HPF Urine Squamous Epithelial Cells Few <5 /hpf Urine Bacteria Few H None Seen /hpf Urine Hyaline Casts Mod 0 - 2 /lpf Urine Mucus Few None Seen Urine Glucose Normal Normal mg/dL Troponin I High Sensitivity 80 *H </=54 ng/L Differential Total Cells Counted 100.0 100 Neutrophils % (Manual) 87 H 37.0-80.0 Band Neutrophils % (Manual) 3 Lymphocytes % (Manual) 5 L 10.0-50.0 Monocytes % (Manual) 5 0-12 Eosinophils % (Manual) 0 0-7 Basophils % (Manual) 0 0.0-2.0 Metamyelocytes % (manual) 0 Myelocytes % (Manual) 0 Promyelocytes % (Manual) 0 Blast Cells % (Manual) 0 Reactive Lymphocytes 0 Platelet Estimate Adequate Clumped Platelets Few Anisocytosis (manual) Slight Macrocytosis Slight Microbiology Date/Time Source Procedure Growth Status 09/11/24 16:31 Leg Right Gram Stain - Final Resulted 09/11/24 16:31 Leg Right Wound Culture - Preliminary Resulted 09/10/24 12:45 Blood Blood Culture - Preliminary NO GROWTH AFTER 48 HOURS OF INCUBATION. Resulted Problems(with codes): (1) Generalized weakness (2) Metabolic encephalopathy (3) Bilateral cellulitis of lower leg Plan/Recommendation ASSESSMENT: Patient is a 82-year-old male seen in the ER for worsening bilateral foot wounds PLAN: - The patients chart was reviewed, clinical findings were discussed with the patient, the etiologies of the conditions were discussed in detail, and a treatment plan was agreed to at this time, with both oral and written instructions provided. - reviewed advanced imaging - discussed with the nurse that the appeared to be superficial gangrenous areas with no obvious signs of deep infection or abscess - we can paint the wounds with Betadine to keep them dry - recommend vascular studies and consult with vascular to determine if intervention is needed - continue antibiotics through IV - if patient would deemed to be able to heal from a debridement could consider All questions were answered and concerns addressed to the patient's satisfaction. The patient was given the phone number to the clinic and was told how to make contact with the clinic should any concerns or questions arise. Patient understands that if any questions or concerns arise prior to the next appointment, we should be contacted immediately. FOLLOW-UP: Continue to follow while inpatient Plan discussed with: Patient Date of Service: Sep 12, 2024 Billing Provider: KAYLEEN MORENO DPM Common Visit Codes: CONSULT ONLY Consultation Codes: [id number] CONSULT <80MIN KAYLEEN MORENO DPM Sep 12, 2024 16:20
[2024-09-12] MEDS ORDERED: MAGNSUS48 PO (17:54)
--- NOTE | 2024-09-12 18:00 | DVHCONRES ---
Date Seen: Sep 12, 2024 Resident Creating Document: ANDREW KHAN Jr., MD Referring Physician Baljinder Reason for Consultation Bilateral foot wounds History of Present Illness 84-year-old male presents for evaluation of altered mental status. Patient is currently confused and can not provide history. Patient presents with altered mental status and bilateral foot wounds. CT of the head has been ordered by this provider and is currently pending. Patient is alert but does not respond to questions or follow commands. Noted discoloration and multiple open wounds to bilateral feet. No further history could be obtained at the moment. Past Medical History Hypertension Past Surgical History Unknown Social History Unknown Allergies: Coded Allergies: NO KNOWN ALLERGIES (Unverified , 09/10/24) Home Meds Reported Medications Diclofenac Sodium (Diclofenac Sodium Dr) 75 Mg Tab, 1 TAB PO BID PRN for 30 Days , #60 09/12/24 Acetaminophen (Acetaminophen) 325 Mg Tab, 2 TAB PO Q4HR PRN for PAIN for 30 Days, #360 TAKE 2 TABLETS BY MOUTH EVERY 4 HOURS IF NEEDED FOR PAIN. MAX 3 GRAMS IN 24 HOURS. 09/12/24 Bisacodyl (Bisacodyl Laxative) 10 Mg Sup, 1 SUPP LA DAILY PRN for FOR CONSTIPATION for 3 Days, #12 INSERT 1 SUPPLOSITORY RECTALLY ONCE DAILY IF NEEDED FOR CONSTIPATION IF NO BOWEL MOVEMENT IN 24 HOURS. 09/12/24 Fluconazole (Fluconazole) 100 Mg Tab, 1 TAB PO DAILY for 14 Days, #14 09/12/24 Doxycycline Hyclate (Doxycycline Hyclate) 100 Mg Cap, 1 CAP PO BID for 12 Days, #24 09/12/24 Cefdinir (Cefdinir) 300 Mg Cap, 1 CAP PO BID for 12 Days, #24 09/12/24 Magnesium Hydroxide (Milk of Magnesia 400 mg/5Ml) 1 Sherry Sherry, 30 ML PO DAILY PRN for CONSTIPATION for 10 Days, #355 TAKE 30 ML BY MOUTH ONCE DAILY NEEDED FOR CONSTIPATION IF NO BOWEL MOVEMENT IN 2 DAYS. 09/12/24 Sodium Phosphates (FLEET ENEMA SIX PACK) Enema Yamilet, 1 BOTTLE RE PRN PRN for FOR CONSTIPATION for 2 Days, #133 09/12/24 Famotidine (Famotidine) 20 Mg Tab, 1 TAB PO BID for 90 Days, #180 09/12/24 Furosemide (Furosemide) 40 Mg Tab, 1 TAB PO DAILY for 90 Days, #90 2/11/25 Levothyroxine Sodium (Levothyroxine Sodium) 25 Mcg Tab, 1 TAB PO QAM for 90 Days, #90 09/12/24 Potassium Chloride (Potassium Chloride ER) 10 Meq Tab, 1 TAB PO BID for 90 Days, #180 09/12/24 Lisinopril (Lisinopril) 10 Mg Tab, 1 TAB PO DAILY for 90 Days, #90 09/12/24 Atorvastatin Calcium (Lipitor) 40 Mg Tab, 1 TAB PO DAILY for 30 Days, #30 09/12/24 Metoprolol Succinate (Metoprolol Succinate Er) 25 Mg Tab, 1 TAB PO DAILY for 30 Days, #30 09/12/24 Melatonin (Melatonin) 5 Mg Tab, 1 TAB PO DAILY for 30 Days, #30 09/12/24 Current Medications Current Medications Medications (Trade) Dose Ordered Sig/Aram Route PRN Reason Start Time Stop Time Status Last Admin Atorvastatin Calcium (Lipitor) 40 mg HS PO 09/11/24 22:00 Enoxaparin Sodium (Lovenox) 30 mg DAILY SC 09/12/24 10:00 09/12/24 11:50 DC Sodium Bicarbonate 50 ml/ Sodium Chloride 1,050 ml @ 75 mls/hr Q14H IV 09/12/24 12:00 09/12/24 13:36 DC 09/12/24 12:22 Carvedilol (Coreg Tablet) 3.125 mg Q12HR PO 09/12/24 22:00 Linezolid 300 ml @ 150 mls/hr Q12HR IV 09/12/24 12:00 09/12/24 11:54 DC Linezolid 300 ml @ 150 mls/hr Q12H IV 09/12/24 14:00 09/12/24 14:04 Sodium Chloride 1,000 ml @ 75 mls/hr [id number] IV 09/12/24 13:45 09/12/24 14:04 Review of Systems Unable to obtain Vital Signs Vital Signs Date Time Temp Pulse Resp B/P (MAP) Pulse Ox O2 Delivery O2 Flow Rate FiO2 09/12/24 16:00 118/75 09/12/24 16:00 85 09/12/24 15:00 17 97 09/12/24 07:30 Simple Mask* 10 99 09/12/24 04:00 99.0 99.0 Physical Exam Head eyes ears nose and throat exam eyes are nonicteric conjunctiva is pink neck was supple no JVD no lymphadenopathy no carotid bruits lungs is currently on oxygen face mask. Heart was regular rate and rhythm abdomen is soft nontender with no pulsatile abdominal mass or bruits lower extremities palpable femoral and pedal pulses bilaterally the feet have areas of superficial black necrotic tissue intermittently on the toes and feet bilaterally. No drainage currently. There is 1+ edema of the foot. No signs of deep gangrenous changes. Labs/Diagnostic Data Labs Test 09/12/24 16:14 09/12/24 07:50 09/11/24 14:25 09/11/24 13:29 Range/Units POC Glucose 137 H 70-106 mg/dl White Blood Count 8.2 4.4-10.8 10^3/uL Red Blood Count 4.16 L 4.5-5.90 10^6/uL Hemoglobin 14.2 13.5-17.5 g/dL Hematocrit 42.4 # 41.0-53.0 % Mean Corpuscular Volume 102.0 H 80.0-100.0 fL Mean Corpuscular Hemoglobin 34.2 H 28.0-32.0 pg Mean Corpuscular Hemoglobin Concent 33.5 32.0-36.0 g/dL Red Cell Distribution Width 15.9 H 11.8-14.3 % Platelet Count 115 L 140-450 10^3/uL Mean Platelet Volume 9.4 6.9-10.8 fL Neutrophils (%) (Auto) 83.7 H 37.0-80.0 % Lymphocytes (%) (Auto) 3.5 L 10.0-50.0 % Monocytes (%) (Auto) 11.8 0.0-12.0 % Eosinophils (%) (Auto) 0.8 0.0-7.0 % Basophils (%) (Auto) 0.2 0.0-2.0 % Neutrophils # (Auto) 6.9 1.6-8.6 10 ^3/uL Lymphocytes # (Auto) 0.3 L 0.4-5.4 10 ^3/uL Monocytes # (Auto) 1.0 0-1.3 10 ^3/uL Eosinophils # (Auto) 0.1 0-0.8 10 ^3/uL Basophils # (Auto) 0 0-0.2 10 ^3/uL Nucleated Red Blood Cells 0.6 % Prothrombin Time 18.2 H 9.3-11.8 sec Prothrombin Time INR 1.82 H 0.9-1.15 Activated Partial Thromboplast Time 49.2 H 24.5-34.5 SEC Sodium Level 140 136-145 mmol/L Potassium Level 4.4 3.5-5.1 mmol/L Chloride Level 102 98-107 mmol/L Carbon Dioxide Level 31 20-31 mmol/L Anion Gap 7 5-15 Blood Urea Nitrogen 86 #*H 9-23 mg/dL Creatinine 2.82 H 0.700-1.30 mg/dL Glomerular Filtration Rate Calc 22 >90 mL/min BUN/Creatinine Ratio 30.5 H 10.0-20.0 Serum Glucose 122 H 74-106 mg/dL Calcium Level 9.2 8.7-10.4 mg/dL Total Bilirubin 1.7 H 0.2-1.0 mg/dL Aspartate Amino Transferase (AST) 141 H 13-40 U/L Alanine Aminotransferase (ALT) 94 H 7-40 U/L Alkaline Phosphatase 142 H 46-116 U/L Total Protein 5.1 L 5.7-8.2 g/dL Albumin 3.0 L 3.2-4.8 g/dL Vitamin B12 Level 1665 H 211-911 pg/mL Random Vancomycin Level 12.6 H 5-10 ug/mL Urine Creatinine 41.61 30.0-125.0 mg/dL Urine Protein/Creatinine Ratio 1.75 Urine Sodium 77 40-220 mmol/L Urine Total Protein 72.7 H 1-14 mg/dL Urine Opiates Screen Neg NEGATIVE Urine Fentanyl Screen Neg NEGATIVE Urine Barbiturates Screen Neg NEGATIVE Urine Phencyclidine Screen Neg NEGATIVE Urine Amphetamines Screen Neg NEGATIVE Urine Benzodiazepines Screen Neg NEGATIVE Urine Cocaine Screen Neg NEGATIVE Urine Cannabinoids Screen Neg NEGATIVE Hemoglobin A1c 6.1 H <5.7 % A1C Ammonia < 10 L 11-32 umol/L Triglycerides Level 73 < 150 mg/dL Cholesterol Level 83 < 200 mg/dL LDL Cholesterol 40 < 100 mg/dL HDL Cholesterol 30 L 40-59 mg/dL Thyroid Stimulating Hormone (TSH) 13.17 H 0.55-4.78 uIU/mL Test 09/11/24 09:30 09/11/24 06:38 09/11/24 05:20 09/11/24 04:53 Range/Units Lactic Acid Level 2.4 *H 0.4-2.0 mmol/L Creatine Kinase 587 H 46-171 U/L Vitamin D 25-Hydroxy 74.5 30.0-100 ng/mL Phosphorus Level 6.0 H 2.4-5.1 mg/dL Magnesium Level 2.4 1.6-2.6 mg/dL B-Type Natriuretic Peptide 854.96 0-100 pg/mL Parathyroid Hormone (Intact) 171.0 H 18.4-80.1 pg/mL Hepatitis B Surface Antigen Negative Negative Hepatitis C Antibody Negative Negative Blood Gas Specimen Type Arterial Blood Gas Sample Site Right radial Blood Gas Patient Temperature 37.0 Arterial Blood Date Drawn [id number] Arterial Blood pH 7.379 7.350-7.450 Arterial Blood Partial Pressure CO2 38.8 35.0-48.0 mmHg Arterial Blood Partial Pressure O2 75.7 L 83.0-108.0 mmHg Arterial Blood HCO3 22.4 21.0-28.0 mmol/L Arterial Blood Oxygen Saturation 94.1 94.0-98.0 % Arterial Blood Base Excess -2.4 L -2.0-3.0 mmol/L Arterial Blood Oxyhemoglobin 92.1 L 94.0-98.0 % Arterial Blood Carboxyhemoglobin 1.5 0.5-1.5 % Arterial Blood Methemoglobin 0.6 0.0-1.5 % Kirk Test Modified Blood Gas Total Hemoglobin 16.10 13.5-17.5 g/dL Blood Gas Liter Flow 4.00 Blood Gas Modality Nasal cannula FiO2 % 32.0 Test 09/10/24 23:45 09/10/24 16:56 09/10/24 12:45 Range/Units Urine Color Yellow Yellow Urine Clarity Turbid H Clear Urine pH 5.0 5.0-9.0 Urine Specific [place] 1.020 1.001-1.035 Urine Protein 1+ H Negative Urine Ketones Negative Negative Urine Blood 2+ H Negative /uL Urine Nitrite Negative Negative Urine Bilirubin Negative Negative Urine Urobilinogen Normal Negative mg/dL Urine Leukocyte Esterase Negative Negative /uL Urine RBC 58 0 - 3 /hpf Urine Microscopic WBC 5 H 0-3 /HPF Urine Squamous Epithelial Cells Few <5 /hpf Urine Bacteria Few H None Seen /hpf Urine Hyaline Casts Mod 0 - 2 /lpf Urine Mucus Few None Seen Urine Glucose Normal Normal mg/dL Troponin I High Sensitivity 80 *H </=54 ng/L Differential Total Cells Counted 100.0 100 Neutrophils % (Manual) 87 H 37.0-80.0 Band Neutrophils % (Manual) 3 Lymphocytes % (Manual) 5 L 10.0-50.0 Monocytes % (Manual) 5 0-12 Eosinophils % (Manual) 0 0-7 Basophils % (Manual) 0 0.0-2.0 Metamyelocytes % (manual) 0 Myelocytes % (Manual) 0 Promyelocytes % (Manual) 0 Blast Cells % (Manual) 0 Reactive Lymphocytes 0 Platelet Estimate Adequate Clumped Platelets Few Anisocytosis (manual) Slight Macrocytosis Slight Microbiology Date/Time Source Procedure Growth Status 09/11/24 16:31 Leg Right Gram Stain - Final Resulted 09/11/24 16:31 Leg Right Wound Culture - Preliminary Resulted 09/10/24 12:45 Blood Blood Culture - Preliminary NO GROWTH AFTER 48 HOURS OF INCUBATION. Resulted Assessment Bilateral foot wounds. Adequate vascular exam to heal. Recommend continuing local wound care, and antibiotics. Plan/Recommendation Bilateral foot wounds. Adequate vascular exam to heal. Recommend continuing local wound care, and antibiotics. Plan discussed with: Other (Nurse) ANDREW KHAN Jr., MD Sep 12, 2024 18:00
[2024-09-12] MEDS: CARVEDILOL 3.125 MG TAB PO SCH (22:00)
[2024-09-13] MEDS: HYDROcodone-ACET 5/325MG TAB PO PRN (04:58)
[2024-09-13 07:17] LABS: Anion Gap 6 (5-15); BUN/Creatinine Ratio 29.9 (10.0-20.0); Calcium 8.8 mg/dL (8.7-10.4); Potassium 3.8 mmol/L (3.5-5.1); Sodium 137 mmol/L (136-145)
[2024-09-13 07:25] LABS: Basophils # (auto) 0 10 ^3/uL (0-0.2); Basophils % (auto) 0.2 % (0.0-2.0); Eosinophils # (auto) 0.1 10 ^3/uL (0-0.8); Eosinophils % (auto) 1.6 % (0.0-7.0); Hematocrit 46.1 % (41.0-53.0); Hemoglobin 15.2 g/dL (13.5-17.5); Lymphocytes # (auto) 0.2 10 ^3/uL (0.4-5.4); Lymphocytes % (auto) 3.4 % (10.0-50.0); Mean Corpuscular Hemoglobin 33.7 pg (28.0-32.0); Mean Corpuscular Volume 102.1 fL (80.0-100.0); Monocytes # (auto) 0.8 10 ^3/uL (0-1.3); Monocytes % (auto) 12.2 % (0.0-12.0); Neutrophils # (auto) 5.7 10 ^3/uL (1.6-8.6); Neutrophils % (auto) 82.6 % (37.0-80.0); Nucleated Red Blood Cells % 0.7 %; Platelet Count (auto) 107 10^3/uL (140-450); Red Blood Cells 4.52 10^6/uL (4.5-5.90); Red Cell Distribution Width 16.1 % (11.8-14.3); White Blood Cell 6.9 10^3/uL (4.4-10.8)
[2024-09-13 07:28] LABS: Alanine Aminotransferase 86 U/L (7-40); Alkaline Phosphatase 141 U/L (46-116); Aspartate Aminotransferase 106 U/L (13-40); Bilirubin, Total 1.9 mg/dL (0.2-1.0); Blood Urea Nitrogen 63 mg/dL (9-23); Carbon Dioxide 35 mmol/L (20-31); Chloride 96 mmol/L (98-107); Glucose 116 mg/dL (74-106); Total Protein 5.4 g/dL (5.7-8.2)
[2024-09-13 08:00] VITALS: PULSE 85; RESP 18; O2SAT 91
--- NOTE | 2024-09-13 11:19 | DVHPN2 ---
Progress Note Date Seen: Sep 13, 2024 Medical Necessity Reason Pt with a Central, PICC or Fol: Yes The following are medically ne: Lozoya Catheter Reason for lozoya catheter: Strict I&O Subjective Patient reports: No new complaints Other Systems: Patient seen and examined by myself today in follow-up Objective vital signs Vital Sign Date Time Temp Pulse Resp B/P (MAP) Pulse Ox O2 Delivery O2 Flow Rate FiO2 09/13/24 08:01 85 09/13/24 08:00 97.9 18 114/69 (84) 91 97.9 09/13/24 08:00 Nasal Cannula* 3 32 Total Intake and Output 09/12/24 09/12/24 09/13/24 15:00 23:00 07:00 Intake Total 1080.000 ml 1392.500 ml 799.375 ml Output Total 3000 ml 2600 ml Balance -1920.000 ml 1392.500 ml -1800.625 ml medications Current Medications Medications Dose Ordered Sig/Aram Route Start Time Stop Time Status Last Admin Dose Admin Piperacillin Sod/ Tazobactam Sod 100 ml @ 25 mls/hr Q12HR IV 09/11/24 10:00 09/13/24 11:07 25 MLS/HR Furosemide 20 mg BIDD IV 09/11/24 06:00 09/13/24 06:14 20 MG Atorvastatin Calcium 40 mg HS PO 09/11/24 22:00 Ondansetron HCl 4 mg Q4HP PRN IV 09/11/24 04:30 Acetaminophen 650 mg Q6HP PRN PO 09/11/24 04:30 Nitroglycerin 0.4 mg Q5MINP PRN SL 09/11/24 04:30 Morphine Sulfate 2 mg Q30M PRN IV 09/11/24 04:30 Lorazepam 0.5 mg Q12HP PRN IV 09/11/24 04:45 09/11/24 15:49 0.5 MG Dopamine HCl/ Dextrose 250 ml @ 5.625 mls/ hr Q24H IV 09/11/24 09:30 09/13/24 05:30 5.625 MLS/HR Carvedilol 3.125 mg Q12HR PO 09/12/24 22:00 Linezolid 300 ml @ 150 mls/hr Q12H IV 09/12/24 14:00 09/13/24 02:25 150 MLS/HR Sodium Chloride 1,000 ml @ 75 mls/hr [id number] IV 09/12/24 13:45 09/13/24 06:58 75 MLS/HR Acetaminophen/ Hydrocodone Bitart 1 tab Q8HPRN PRN PO 09/13/24 05:00 09/13/24 04:58 1 TAB Examination: LUNGS:Normal, CVS:Normal, MSK:Normal laboratory and microbiology Laboratory Tests 09/13/24 06:11 Test 09/13/24 06:11 Range/Units Serum Glucose 116 H 74-106 mg/dL Microbiology Date/Time Source Procedure Growth Status 09/11/24 16:31 Leg Right Gram Stain - Final Resulted 09/11/24 16:31 Leg Right Wound Culture - Preliminary Resulted 09/10/24 12:45 Blood Blood Culture - Preliminary NO GROWTH AFTER 48 HOURS OF INCUBATION. Resulted Problem List/Assessment/Plan Problem List/Assessment/Plan Acute kidney injury superimposed Chronic Kidney Disease secondary hemodynamic mediated aTN, FeNa > 2% Acute hypoxic respiratory failure, on O2 Hyperkalemia Metabolic acidosis, resolved Bilateral foot gangrene/ischemia Peripheral arterial disease Hepatic encephalopathy Jaundice Transaminitis Sepsis Elevated troponin Recommendations Kidney function continue to improve Increased urine output Hyperkalemia resolved Lozoya catheter Strict I&Os kidney ultrasound reported within normal limit IV antibiotics IVF half NS at 75 cc/hour Low-dose dopamine Podiatry consult GI consult We will continue to follow Plan discussed with: Patient My Orders My Orders Orders - GEORGIA MAYA MD Procedure Category Date Status Time Linezolid 600mg/300ml PHA 09/12/24 In Process (Zyvox) 14:00 Sod Chl 0.45% (Sodium PHA 09/12/24 In Process Chloride 0.45% Via 13:45 GEORGIA MAYA MD Sep 13, 2024 11:19
--- NOTE | 2024-09-13 12:51 | ECG ---
[facility] Test Date: 2024-09-11 Test Time: 10:46:01 Pat Name: SADIA BENTLEY Department: ER Room: [address] [place] [address] A Gender: M Screen Stretcher: VENKAT : 1940 Requested By: ZACHARY NAPOLES Order Number: [id number] Reading MD: Yemi Hardy Measurements Intervals [place] Rate: 74 P: 38 GA: 168 QRS: -85 QRSD: 181 T: 99 QT: 476 QTc: 529 Interpretive Statements Sinus rhythm Probable left atrial enlargement RBBB and LAFB Electronically Signed On 09-14-2024 10:42:43 PST by Yemi Hardy Please click the below link to view image of tracing.
--- NOTE | 2024-09-13 13:56 | DVHPN2 ---
Progress Note Date Seen: Sep 13, 2024 Medical Necessity Reason Pt with a Central, PICC or Fol: Yes The following are medically ne: Lozoya Catheter Reason for lozoya catheter: Strict I&O Subjective Patient reports: No new complaints Review of Systems: HEENT:Normal, CVS:Normal, RESPIRATORY:Normal, GI:Normal, :Normal, MSK:Normal, NEURO:Normal Objective vital signs Vital Sign Date Time Temp Pulse Resp B/P (MAP) Pulse Ox O2 Delivery O2 Flow Rate FiO2 09/13/24 12:00 91 09/13/24 11:00 125/75 09/13/24 11:00 14 95 09/13/24 08:00 97.9 97.9 09/13/24 08:00 Nasal Cannula* 3 32 Total Intake and Output 09/12/24 09/12/24 09/13/24 15:00 23:00 07:00 Intake Total 1080.000 ml 1392.500 ml 799.375 ml Output Total 3000 ml 2600 ml Balance -1920.000 ml 1392.500 ml -1800.625 ml medications Current Medications Medications Dose Ordered Sig/Aram Route Start Time Stop Time Status Last Admin Dose Admin Piperacillin Sod/ Tazobactam Sod 100 ml @ 25 mls/hr Q12HR IV 09/11/24 10:00 09/13/24 11:07 25 MLS/HR Furosemide 20 mg BIDD IV 09/11/24 06:00 09/13/24 06:14 20 MG Atorvastatin Calcium 40 mg HS PO 09/11/24 22:00 Ondansetron HCl 4 mg Q4HP PRN IV 09/11/24 04:30 Acetaminophen 650 mg Q6HP PRN PO 09/11/24 04:30 Nitroglycerin 0.4 mg Q5MINP PRN SL 09/11/24 04:30 Morphine Sulfate 2 mg Q30M PRN IV 09/11/24 04:30 Lorazepam 0.5 mg Q12HP PRN IV 09/11/24 04:45 09/11/24 15:49 0.5 MG Dopamine HCl/ Dextrose 250 ml @ 5.625 mls/ hr Q24H IV 09/11/24 09:30 09/13/24 05:30 5.625 MLS/HR Carvedilol 3.125 mg Q12HR PO 09/12/24 22:00 Linezolid 300 ml @ 150 mls/hr Q12H IV 09/12/24 14:00 09/13/24 02:25 150 MLS/HR Sodium Chloride 1,000 ml @ 75 mls/hr [id number] IV 09/12/24 13:45 09/13/24 06:58 75 MLS/HR Acetaminophen/ Hydrocodone Bitart 1 tab Q8HPRN PRN PO 09/13/24 05:00 09/13/24 04:58 1 TAB Examination: GENERAL:Normal, HEENT:Normal, NECK:Normal, LUNGS:Normal, CVS:Normal, ABDOMEN:Normal, MSK:Normal, MSK:Abnormal (ulcers both legs, cellulitis), SKIN:Normal, NEURO:Normal, :Normal laboratory and microbiology Laboratory Tests 09/13/24 06:11 Test 09/13/24 06:11 Range/Units Serum Glucose 116 H 74-106 mg/dL Microbiology Date/Time Source Procedure Growth Status 09/11/24 16:31 Leg Right Gram Stain - Final Resulted 09/11/24 16:31 Leg Right Wound Culture - Preliminary Resulted 09/10/24 12:45 Blood Blood Culture - Preliminary NO GROWTH AFTER 72 HOURS OF INCUBATION. Resulted Problem List/Assessment/Plan Problem List/Assessment/Plan #1 acute resp failure: cont oxygen #2 encephalopathy- toxic/metabolic #3 gangrene/cellulitis both legs with sepsis: iv antibiotics, surg eval #4 pvd #5 acute systolic heart failure: lasix iv #6 nstemi: cardio eval #7 acute liver failure #8 acute renal failure ?vasomotor nephropathy: improving #9 hyperkalemia: repeat K #10 thrombocytopenia: dc lovenox #11 hypothyroidism; resume med advance care planning- full code- time spent 19 mins Plan discussed with: Patient Date of Service: Sep 13, 2024 Billing Provider: PRADIP ORTIZ MD Common Visit Codes: [id number] INP/OBS CARE(HIGH) Secondary Visit Codes: [id number] CARE PLAN 30 MINUTES PRADIP ORTIZ MD Sep 13, 2024 13:56
[2024-09-13] MEDS: LEVOTHYROXINE SODIUM 50 MCG TAB PO ONE (14:00)
--- NOTE | 2024-09-13 19:15 | DVHPN2 ---
Consult Progress Note Subjective Other Systems: Patient now awake and alert, able to answer questions appropriately Objective vital signs Vital Sign Date Time Temp Pulse Resp B/P (MAP) Pulse Ox O2 Delivery O2 Flow Rate FiO2 09/13/24 18:00 76 14 108/63 (78) 95 09/13/24 08:00 97.9 97.9 09/13/24 08:00 Nasal Cannula* 3 32 Total Intake and Output 09/12/24 09/12/24 09/13/24 15:00 23:00 07:00 Intake Total 1080.000 ml 1392.500 ml 799.375 ml Output Total 3000 ml 2600 ml Balance -1920.000 ml 1392.500 ml -1800.625 ml medications Current Medications Medications Dose Ordered Sig/Aram Route Start Time Stop Time Status Last Admin Dose Admin Piperacillin Sod/ Tazobactam Sod 100 ml @ 25 mls/hr Q12HR IV 09/11/24 10:00 09/13/24 11:07 25 MLS/HR Furosemide 20 mg BIDD IV 09/11/24 06:00 09/13/24 06:14 20 MG Atorvastatin Calcium 40 mg HS PO 09/11/24 22:00 Ondansetron HCl 4 mg Q4HP PRN IV 09/11/24 04:30 Acetaminophen 650 mg Q6HP PRN PO 09/11/24 04:30 Nitroglycerin 0.4 mg Q5MINP PRN SL 09/11/24 04:30 Morphine Sulfate 2 mg Q30M PRN IV 09/11/24 04:30 Lorazepam 0.5 mg Q12HP PRN IV 09/11/24 04:45 09/11/24 15:49 0.5 MG Dopamine HCl/ Dextrose 250 ml @ 5.625 mls/ hr Q24H IV 09/11/24 09:30 09/13/24 05:30 5.625 MLS/HR Carvedilol 3.125 mg Q12HR PO 09/12/24 22:00 Linezolid 300 ml @ 150 mls/hr Q12H IV 09/12/24 14:00 09/13/24 15:37 150 MLS/HR Sodium Chloride 1,000 ml @ 75 mls/hr [id number] IV 09/12/24 13:45 09/13/24 06:58 75 MLS/HR Acetaminophen/ Hydrocodone Bitart 1 tab Q8HPRN PRN PO 09/13/24 05:00 09/13/24 04:58 1 TAB Levothyroxine Sodium 50 mcg QAM@0600 PO 09/14/24 06:00 Enteral Nutritional Formula 240 ml BIDWM PO 09/13/24 18:00 Examination: GENERAL:Abnormal (Generalized weakness), LUNGS:Normal, CVS:Normal, NEURO:Normal laboratory and microbiology Laboratory Tests 09/13/24 06:11 Test 09/13/24 06:11 Range/Units Serum Glucose 116 H 74-106 mg/dL Problem List/Assessment/Plan Problem List/Assessment/Plan 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 Betancourt): * Echocardiogram reveals EF less than 20%, grade 2 diastolic dysfunction * Initiate GDMT for CHF with optimal renal function * Strict intake and output, daily weights, maintain fluid restriction * Diuretics as tolerated * Close Cardiac surveillance Patient seen and examined in the emergency room with . Patient remains on dopamine drip per Nephrology. Consider initiating guideline directed medical therapy for CHF with optimal renal function. Continue with supportive medical management. Thank you for allowing us to care for this patient. Please call with any questions or concerns. Critical care time spent: 40 minutes.This medical document was created using an electronic medical record system with voice recognition software and computerized dictation system. Although this document has been carefully reviewed, there might still be some phonetic and typographical errors. Occasional wrong-word or ``sound-alike substitutions may have occurred due to the inherent limitations of voice recognition software. These areas are purely typographical due to imperfections of the software programs and do not reflect any compromise in the patient's medical care. Please read the chart carefully and recognize, using context, where these substitutions have occurred. Plan discussed with: Patient, Other (Bedside RN) Date of Service: Sep 13, 2024 Billing Provider: JOEY STACK Common Visit Codes: [id number] CARE 30-74 MIN JOEY STACK Sep 13, 2024 19:15
[2024-09-13 19:50] VITALS: O2SAT 96
[2024-09-13] MEDS: Ensure HIGH Protein Chocolate 8oz Bottle PO SCH (21:13)
[2024-09-14] MEDS: LEVOTHYROXINE SODIUM 50 MCG TAB PO SCH (06:00)
[2024-09-14 07:03] LABS: Basophils # (auto) 0 10 ^3/uL (0-0.2); Basophils % (auto) 0.8 % (0.0-2.0); Eosinophils # (auto) 0.1 10 ^3/uL (0-0.8); Eosinophils % (auto) 2.1 % (0.0-7.0); Hematocrit 47.5 % (41.0-53.0); Hemoglobin 15.9 g/dL (13.5-17.5); Lymphocytes # (auto) 0.3 10 ^3/uL (0.4-5.4); Lymphocytes % (auto) 4.9 % (10.0-50.0); Mean Corpuscular Hgb Conc. 33.4 g/dL (32.0-36.0); Mean Corpuscular Volume 101.9 fL (80.0-100.0); Monocytes # (auto) 0.8 10 ^3/uL (0-1.3); Monocytes % (auto) 14.4 % (0.0-12.0); Neutrophils # (auto) 4.6 10 ^3/uL (1.6-8.6); Neutrophils % (auto) 77.8 % (37.0-80.0); Nucleated Red Blood Cells % 0.8 %; Platelet Count (auto) 105 10^3/uL (140-450); Red Blood Cells 4.66 10^6/uL (4.5-5.90); Red Cell Distribution Width 16.2 % (11.8-14.3); White Blood Cell 5.9 10^3/uL (4.4-10.8)
[2024-09-14 07:16] LABS: Anion Gap 6 (5-15); BUN/Creatinine Ratio 27.8 (10.0-20.0); Glucose 102 mg/dL (74-106); Potassium 3.5 mmol/L (3.5-5.1); Sodium 137 mmol/L (136-145)
[2024-09-14 07:18] LABS: Alkaline Phosphatase 139 U/L (46-116); Aspartate Aminotransferase 79 U/L (13-40); Blood Urea Nitrogen 42 mg/dL (9-23); Carbon Dioxide 37 mmol/L (20-31); Chloride 94 mmol/L (98-107)
[2024-09-14 07:19] LABS: Alanine Aminotransferase 72 U/L (7-40); Bilirubin, Total 2.3 mg/dL (0.2-1.0); Calcium 8.7 mg/dL (8.7-10.4); Total Protein 5.3 g/dL (5.7-8.2)
[2024-09-14 07:30] VITALS: PULSE 96; RESP 23; O2SAT 95
--- NOTE | 2024-09-14 09:43 | DVHPN2 ---
Progress Note Date Seen: Sep 14, 2024 Medical Necessity Reason Pt with a Central, PICC or Fol: Yes The following are medically ne: Lozoya Catheter Reason for lozoya catheter: Strict I&O Subjective Patient reports: No new complaints Other Systems: Patient seen and examined by myself today in follow-up Objective vital signs Vital Sign Date Time Temp Pulse Resp B/P (MAP) Pulse Ox O2 Delivery O2 Flow Rate FiO2 09/14/24 08:00 89 09/14/24 07:01 17 105/67 (80) 95 09/13/24 19:50 Nasal Cannula* 3 32 09/13/24 08:00 97.9 97.9 Total Intake and Output 09/13/24 09/13/24 09/14/24 15:00 23:00 07:00 Intake Total 701.875 ml 1840.000 ml 939.375 ml Output Total 2500 ml 900 ml Balance 701.875 ml -660.000 ml 39.375 ml medications Current Medications Medications Dose Ordered Sig/Aram Route Start Time Stop Time Status Last Admin Dose Admin Piperacillin Sod/ Tazobactam Sod 100 ml @ 25 mls/hr Q12HR IV 09/11/24 10:00 09/13/24 22:30 25 MLS/HR Furosemide 20 mg BIDD IV 09/11/24 06:00 09/14/24 06:09 20 MG Atorvastatin Calcium 40 mg HS PO 09/11/24 22:00 09/13/24 23:13 40 MG Ondansetron HCl 4 mg Q4HP PRN IV 09/11/24 04:30 Acetaminophen 650 mg Q6HP PRN PO 09/11/24 04:30 Nitroglycerin 0.4 mg Q5MINP PRN SL 09/11/24 04:30 Morphine Sulfate 2 mg Q30M PRN IV 09/11/24 04:30 Lorazepam 0.5 mg Q12HP PRN IV 09/11/24 04:45 09/11/24 15:49 0.5 MG Dopamine HCl/ Dextrose 250 ml @ 5.625 mls/ hr Q24H IV 09/11/24 09:30 09/13/24 05:30 5.625 MLS/HR Carvedilol 3.125 mg Q12HR PO 09/12/24 22:00 09/13/24 23:12 3.125 MG Linezolid 300 ml @ 150 mls/hr Q12H IV 09/12/24 14:00 09/14/24 02:28 150 MLS/HR Sodium Chloride 1,000 ml @ 75 mls/hr [id number] IV 09/12/24 13:45 09/13/24 22:00 75 MLS/HR Acetaminophen/ Hydrocodone Bitart 1 tab Q8HPRN PRN PO 09/13/24 05:00 09/13/24 04:58 1 TAB Levothyroxine Sodium 50 mcg QAM@0600 PO 09/14/24 06:00 Enteral Nutritional Formula 240 ml BIDWM PO 09/13/24 18:00 Examination: LUNGS:Normal, CVS:Normal, MSK:Normal laboratory and microbiology Laboratory Tests 09/14/24 06:25 Test 09/14/24 06:25 Range/Units Serum Glucose 102 74-106 mg/dL Microbiology Date/Time Source Procedure Growth Status 09/11/24 16:31 Leg Right Gram Stain - Final Resulted 09/11/24 16:31 Leg Right Wound Culture - Preliminary Resulted 09/10/24 12:45 Blood Blood Culture - Preliminary NO GROWTH AFTER 72 HOURS OF INCUBATION. Resulted Problem List/Assessment/Plan Problem List/Assessment/Plan Acute kidney injury superimposed Chronic Kidney Disease secondary hemodynamic mediated aTN, FeNa > 2% Acute hypoxic respiratory failure, on O2 Hyperkalemia Metabolic acidosis, resolved Bilateral foot gangrene/ischemia Peripheral arterial disease Hepatic encephalopathy Jaundice Transaminitis Sepsis Elevated troponin Recommendations Kidney function continue to improve Increased urine output Hyperkalemia resolved Lozoya catheter Strict I&Os kidney ultrasound reported within normal limit IV antibiotics IVF half NS at 75 cc/hour Low-dose dopamine Podiatry consult GI consult We will continue to follow Plan discussed with: Patient GEORGIA MAYA MD Sep 14, 2024 09:43
[2024-09-14] MEDS: FUROSEMIDE 40 MG TAB PO SCH (10:00)
[2024-09-14] MEDS: FLUCONAZOLE 100 MG TAB PO SCH (10:00)
[2024-09-14] MEDS ORDERED: ACETAMINOPHEN 325 MG TAB PO PRN (10:00)
[2024-09-14] MEDS: MELATONIN 5 MG TAB PO SCH (10:00)
[2024-09-14] MEDS: FAMOTIDINE 20 MG TAB PO SCH (10:00)
[2024-09-14] MEDS ORDERED: MILK OF MAGNESIA 30ML SUSP PO PRN (10:00)
[2024-09-14] MEDS: SODIUM CHLORIDE 0.9% 250 ML IV ONE ×2 (11:45→13:41)
[2024-09-14 12:42] VITALS: BP 106/48; PULSE 92; RESP 16; TEMP 99.1; O2SAT 93
--- NOTE | 2024-09-14 13:02 | DVHPN2 ---
Progress Note Date Seen: Sep 14, 2024 Medical Necessity Reason Pt with a Central, PICC or Fol: Yes The following are medically ne: Lozoya Catheter Reason for lozoya catheter: Strict I&O Subjective Patient reports: Feels better Objective vital signs Vital Sign Date Time Temp Pulse Resp B/P (MAP) Pulse Ox O2 Delivery O2 Flow Rate FiO2 09/14/24 11:30 86 17 101/51 (68) 90 09/14/24 07:30 Nasal Cannula* 3 32 09/13/24 08:00 97.9 97.9 Total Intake and Output 09/13/24 09/13/24 09/14/24 15:00 23:00 07:00 Intake Total 701.875 ml 1840.000 ml 939.375 ml Output Total 2500 ml 900 ml Balance 701.875 ml -660.000 ml 39.375 ml medications Current Medications Medications Dose Ordered Sig/Aram Route Start Time Stop Time Status Last Admin Dose Admin Piperacillin Sod/ Tazobactam Sod 100 ml @ 25 mls/hr Q12HR IV 09/11/24 10:00 09/14/24 09:47 25 MLS/HR Furosemide 20 mg BIDD IV 09/11/24 06:00 09/14/24 06:09 20 MG Atorvastatin Calcium 40 mg HS PO 09/11/24 22:00 09/13/24 23:13 40 MG Ondansetron HCl 4 mg Q4HP PRN IV 09/11/24 04:30 Acetaminophen 650 mg Q6HP PRN PO 09/11/24 04:30 Nitroglycerin 0.4 mg Q5MINP PRN SL 09/11/24 04:30 Morphine Sulfate 2 mg Q30M PRN IV 09/11/24 04:30 Lorazepam 0.5 mg Q12HP PRN IV 09/11/24 04:45 09/11/24 15:49 0.5 MG Linezolid 300 ml @ 150 mls/hr Q12H IV 09/12/24 14:00 09/14/24 02:28 150 MLS/HR Sodium Chloride 1,000 ml @ 75 mls/hr [id number] IV 09/12/24 13:45 09/13/24 22:00 75 MLS/HR Acetaminophen/ Hydrocodone Bitart 1 tab Q8HPRN PRN PO 09/13/24 05:00 09/13/24 04:58 1 TAB Levothyroxine Sodium 50 mcg QAM@0600 PO 09/14/24 06:00 Enteral Nutritional Formula 240 ml BIDWM PO 09/13/24 18:00 Acetaminophen 650 mg Q4HR PRN PO 09/14/24 10:00 Famotidine 20 mg BID PO 09/14/24 10:00 09/14/24 10:00 20 MG Fluconazole 100 mg DAILY PO 09/14/24 10:00 09/14/24 10:00 100 MG Furosemide 40 mg DAILY PO 09/14/24 10:00 Levothyroxine Sodium 25 mcg QAM PO 09/15/24 07:00 Magnesium Hydroxide 30 ml DAILY PRN PO 09/14/24 10:00 Melatonin 5 mg DAILY PO 09/14/24 10:00 Examination: GENERAL:Abnormal, HEENT:Abnormal, LUNGS:Abnormal, CVS:Abnormal, ABDOMEN:Abnormal laboratory and microbiology Laboratory Tests 09/14/24 06:25 Test 09/14/24 06:25 Range/Units Serum Glucose 102 74-106 mg/dL Microbiology Date/Time Source Procedure Growth Status 09/11/24 16:31 Leg Right Gram Stain - Final Complete 09/11/24 16:31 Wound Culture - Final Enterococcus faecalis Complete 09/10/24 12:45 Blood Blood Culture - Preliminary NO GROWTH AFTER 72 HOURS OF INCUBATION. Resulted Problem List/Assessment/Plan Problem List/Assessment/Plan pad nelia on ckd--dc dopamine, good uop ckd htn DM severe chf with low EF --can start low dose BB and HF meds outpt fu Plan discussed with: Patient My Orders My Orders Orders - MATTEO KENNEDY MD Procedure Category Date Status Time Communication Order ORDERS 09/14/24 Transmitted 09:48 Acetaminophen Tablet PHA 09/14/24 In Process (Tylenol Tablet) 10:00 Famotidine Tablet PHA 09/14/24 In Process (Pepcid Tablet) 10:00 Fluconazole Tablet PHA 09/14/24 In Process (Diflucan Tablet) 10:00 Furosemide Tablet PHA 09/14/24 In Process (Lasix Tablet) 10:00 Levothyroxine Tablet PHA 09/15/24 In Process (Synthroid Tablet) 07:00 Magnesium Hydroxide PHA 09/14/24 In Process Suspension (Milk Of 10:00 Melatonin (Melatonin) PHA 09/14/24 In Process 10:00 Date of Service: Sep 14, 2024 Billing Provider: MATTEO KENNEDY MD Common Visit Codes: NOT BILLABLE MATTEO KENNEDY MD Sep 14, 2024 13:02
[2024-09-14 13:10] VITALS: PULSE 89; RESP 16; O2SAT 93
--- NOTE | 2024-09-14 15:55 | DVHPN2 ---
Progress Note Date Seen: Sep 14, 2024 Medical Necessity Reason Pt with a Central, PICC or Fol: Yes The following are medically ne: Lozoya Catheter Reason for lozoya catheter: Strict I&O Subjective Patient reports: No new complaints Review of Systems: HEENT:Normal, CVS:Normal, RESPIRATORY:Normal, GI:Normal, :Normal, MSK:Normal, NEURO:Normal Objective vital signs Vital Sign Date Time Temp Pulse Resp B/P (MAP) Pulse Ox O2 Delivery O2 Flow Rate FiO2 09/14/24 13:10 89 16 93 Nasal Cannula* 2 28 09/14/24 12:42 99.1 106/48 (67) 99.1 Total Intake and Output 09/13/24 09/13/24 09/14/24 15:00 23:00 07:00 Intake Total 701.875 ml 1840.000 ml 939.375 ml Output Total 2500 ml 900 ml Balance 701.875 ml -660.000 ml 39.375 ml medications Current Medications Medications Dose Ordered Sig/Aram Route Start Time Stop Time Status Last Admin Dose Admin Piperacillin Sod/ Tazobactam Sod 100 ml @ 25 mls/hr Q12HR IV 09/11/24 10:00 09/14/24 09:47 25 MLS/HR Atorvastatin Calcium 40 mg HS PO 09/11/24 22:00 09/13/24 23:13 40 MG Ondansetron HCl 4 mg Q4HP PRN IV 09/11/24 04:30 Acetaminophen 650 mg Q6HP PRN PO 09/11/24 04:30 Nitroglycerin 0.4 mg Q5MINP PRN SL 09/11/24 04:30 Morphine Sulfate 2 mg Q30M PRN IV 09/11/24 04:30 Lorazepam 0.5 mg Q12HP PRN IV 09/11/24 04:45 09/11/24 15:49 0.5 MG Linezolid 300 ml @ 150 mls/hr Q12H IV 09/12/24 14:00 09/14/24 13:52 150 MLS/HR Sodium Chloride 1,000 ml @ 75 mls/hr [id number] IV 09/12/24 13:45 09/13/24 22:00 75 MLS/HR Acetaminophen/ Hydrocodone Bitart 1 tab Q8HPRN PRN PO 09/13/24 05:00 09/13/24 04:58 1 TAB Enteral Nutritional Formula 240 ml BIDWM PO 09/13/24 18:00 Acetaminophen 650 mg Q4HR PRN PO 09/14/24 10:00 Hold Famotidine 20 mg BID PO 09/14/24 10:00 09/14/24 10:00 20 MG Fluconazole 100 mg DAILY PO 09/14/24 10:00 09/14/24 10:00 100 MG Furosemide 40 mg DAILY PO 09/14/24 10:00 Levothyroxine Sodium 25 mcg QAM PO 09/15/24 07:00 Magnesium Hydroxide 30 ml DAILY PRN PO 09/14/24 10:00 Melatonin 5 mg DAILY PO 09/14/24 10:00 Examination: GENERAL:Normal, HEENT:Normal, NECK:Normal, LUNGS:Normal, CVS:Normal, ABDOMEN:Normal, MSK:Normal, MSK:Abnormal (cellulitis both legs), SKIN:Normal, NEURO:Normal, :Normal laboratory and microbiology Laboratory Tests 09/14/24 06:25 Test 09/14/24 06:25 Range/Units Serum Glucose 102 74-106 mg/dL Microbiology Date/Time Source Procedure Growth Status 09/11/24 16:31 Leg Right Gram Stain - Final Complete 09/11/24 16:31 Wound Culture - Final Enterococcus faecalis Complete 09/10/24 12:45 Blood Blood Culture - Preliminary NO GROWTH AFTER 72 HOURS OF INCUBATION. Resulted Problem List/Assessment/Plan Problem List/Assessment/Plan #1 acute resp failure: cont oxygen #2 encephalopathy- toxic/metabolic #3 gangrene/cellulitis both legs with sepsis: iv antibiotics #4 pvd #5 acute systolic heart failure: lasix #6 nstemi: cardio eval #7 acute liver failure: liver usg #8 acute renal failure ?vasomotor nephropathy: improving #9 hyperkalemia: repeat K #10 thrombocytopenia: dc lovenox, dc zyvox #11 hypothyroidism; resume med advance care planning- full code- time spent 19 mins Plan discussed with: Patient My Orders My Orders Orders - PRADIP ORTIZ MD Procedure Category Date Status Time Pt Request For Service PT 09/14/24 Verified 15:51 LIVER US 09/14/24 Verified 15:51 Complete Blood Count LAB 09/15/24 Verified 06:00 Comprehensive LAB 09/15/24 Verified Metabolic Panel 06:00 Date of Service: Sep 14, 2024 Billing Provider: PRADIP ORTIZ MD Common Visit Codes: [id number] INP/OBS CARE(HIGH) Secondary Visit Codes: [id number] CARE PLAN 30 MINUTES PRADIP ORTIZ MD Sep 14, 2024 15:55
--- NOTE | 2024-09-14 17:05 | DVH ---
EXAM: US LIVER CLINICAL HISTORY: liver failure TECHNIQUE: Grayscale and limited color flow doppler ultrasound of the right upper quadrant is perfor med. COMPARISON: None Findings: Liver measures 12.1 cm in length with heterogeneous echotexture and nodular contour. No evidence of f ocal hepatic lesions or intra- or extrahepatic ductal dilatation. Common bile duct measures 0.4 cm in diameter. Normal hepatopedal flow noted within the portal vein. No perihepatic free fluid is noted. Bilateral pleural effusions. Gallbladder appears within normal limits with gallbladder wall thickness measuring 0.3 cm. No evidenc e of shadowing calculi, biliary sludge or pericholecystic fluid. Negative sonographic Quinonez's sign. Pancreas only partially visualized due to overlying bowel gas but is otherwise unremarkable. Right kidney measures 10.8 cm with normal contours, echotexture and cortical thickness. No evidence o f hydronephrosis, calculi, cystic or solid renal lesions. Partially visualized inferior vena cava unremarkable. Impression: 1. No evidence of acute right upper quadrant abnormalities. 2. Coarsened hepatic echotexture and nodular contour. Correlate for cirrhosis. 3. Bilateral pleural effusions.
[2024-09-14 17:06] VITALS: BP 95/55; PULSE 59; RESP 16; TEMP 98.1; O2SAT 94
[2024-09-14 20:00] VITALS: PULSE 84; O2SAT 93
[2024-09-14 21:00] VITALS: BP 99/67; PULSE 67; RESP 19; TEMP 98.1; O2SAT 97
[2024-09-15] VITALS (10 sets, daily range): BP systolic 97–114; BP diastolic 48–67; PULSE 56–95; RESP 16–20; TEMP 97–97.7; O2SAT 90–100
[2024-09-15] MEDS: LEVOTHYROXINE SODIUM 25 MCG TAB PO SCH (06:38)
[2024-09-15 07:03] LABS: Alanine Aminotransferase 52 U/L (7-40); Albumin 2.5 g/dL (3.2-4.8); Alkaline Phosphatase 111 U/L (46-116); Anion Gap 7 (5-15); Aspartate Aminotransferase 58 U/L (13-40); BUN/Creatinine Ratio 25.7 (10.0-20.0); Blood Urea Nitrogen 35 mg/dL (9-23); Calcium 8.2 mg/dL (8.7-10.4); Carbon Dioxide 35 mmol/L (20-31); Chloride 95 mmol/L (98-107); Glucose 80 mg/dL (74-106); Potassium 3.4 mmol/L (3.5-5.1); Sodium 137 mmol/L (136-145)
[2024-09-15 07:04] LABS: Bilirubin, Total 2.4 mg/dL (0.2-1.0); Total Protein 4.4 g/dL (5.7-8.2)
[2024-09-15 08:03] LABS: Basophils # (auto) 0 10 ^3/uL (0-0.2); Basophils % (auto) 0.5 % (0.0-2.0); Eosinophils # (auto) 0.1 10 ^3/uL (0-0.8); Hematocrit 45.7 % (41.0-53.0); Hemoglobin 14.9 g/dL (13.5-17.5); Lymphocytes # (auto) 0.2 10 ^3/uL (0.4-5.4); Lymphocytes % (auto) 5.8 % (10.0-50.0); Mean Corpuscular Hgb Conc. 32.6 g/dL (32.0-36.0); Mean Corpuscular Volume 101.4 fL (80.0-100.0); Monocytes # (auto) 0.6 10 ^3/uL (0-1.3); Monocytes % (auto) 15.6 % (0.0-12.0); Neutrophils # (auto) 3.1 10 ^3/uL (1.6-8.6); Neutrophils % (auto) 76.1 % (37.0-80.0); Nucleated Red Blood Cells % 0.9 %; Platelet Count (auto) 92 10^3/uL (140-450); Red Blood Cells 4.51 10^6/uL (4.5-5.90); Red Cell Distribution Width 15.9 % (11.8-14.3)
--- NOTE | 2024-09-15 12:24 | DVHPN2 ---
Reviewed: Care Plan, H&P, Labs, Medications, Previous Orders, Radiology Changes from previous H/P or p: No Changes General: Per HPI Objective Vitals Vital Signs Date Time Temp Pulse Resp B/P (MAP) Pulse Ox O2 Delivery O2 Flow Rate FiO2 09/15/24 09:00 97.3 95 16 114/67 (83) 91 97.3 09/15/24 08:00 Nasal Cannula* 2 28 Intake/Output Intake and Output 09/15/24 07:00 Intake Total 1811.250 ml Output Total 1510 ml Balance 301.250 ml Intake Oral 750 ml IV Total 1061.250 ml Output Urine Total 1510 ml # Bowel Movements 2 Medications Current Medications Medications Dose Ordered Sig/Aram Route Start Time Stop Time Status Last Admin Dose Admin Piperacillin Sod/ Tazobactam Sod 100 ml @ 25 mls/hr Q12HR IV 09/11/24 10:00 09/15/24 08:40 25 MLS/HR Atorvastatin Calcium 40 mg HS PO 09/11/24 22:00 09/14/24 21:48 40 MG Ondansetron HCl 4 mg Q4HP PRN IV 09/11/24 04:30 Acetaminophen 650 mg Q6HP PRN PO 09/11/24 04:30 Nitroglycerin 0.4 mg Q5MINP PRN SL 09/11/24 04:30 Morphine Sulfate 2 mg Q30M PRN IV 09/11/24 04:30 Lorazepam 0.5 mg Q12HP PRN IV 09/11/24 04:45 09/11/24 15:49 0.5 MG Sodium Chloride 1,000 ml @ 75 mls/hr [id number] IV 09/12/24 13:45 09/15/24 01:47 75 MLS/HR Acetaminophen/ Hydrocodone Bitart 1 tab Q8HPRN PRN PO 09/13/24 05:00 09/13/24 04:58 1 TAB Enteral Nutritional Formula 240 ml BIDWM PO 09/13/24 18:00 09/15/24 08:40 240 ML Acetaminophen 650 mg Q4HR PRN PO 09/14/24 10:00 Hold Famotidine 20 mg BID PO 09/14/24 10:00 09/15/24 08:44 20 MG Fluconazole 100 mg DAILY PO 09/14/24 10:00 09/15/24 08:41 100 MG Furosemide 40 mg DAILY PO 09/14/24 10:00 09/15/24 08:44 40 MG Levothyroxine Sodium 25 mcg QAM PO 09/15/24 07:00 09/15/24 06:38 25 MCG Magnesium Hydroxide 30 ml DAILY PRN PO 09/14/24 10:00 Melatonin 5 mg DAILY PO 09/14/24 10:00 Laboratory Results Laboratory Tests 09/15/24 05:02 Chemistry Test 09/15/24 05:02 Albumin 2.5 g/dL (3.2-4.8) L Calcium Level 8.2 mg/dL (8.7-10.4) L Total Protein 4.4 g/dL (5.7-8.2) L LFT Test 09/15/24 05:02 Alanine Aminotransferase (ALT) 52 U/L (7-40) H Alkaline Phosphatase 111 U/L (46-116) Aspartate Amino Transferase (AST) 58 U/L (13-40) H Total Bilirubin 2.4 mg/dL (0.2-1.0) H Urinalysis Test 09/10/24 23:45 09/11/24 14:25 Urine Color Yellow (Yellow) Urine Clarity Turbid (Clear) H Urine pH 5.0 (5.0-9.0) Urine Specific [place] 1.020 (1.001-1.035) Urine Protein 1+ (Negative) H Urine Ketones Negative (Negative) Urine Blood 2+ /uL (Negative) H Urine Nitrite Negative (Negative) Urine Bilirubin Negative (Negative) Urine Urobilinogen Normal mg/dL (Negative) Urine Leukocyte Esterase Negative /uL (Negative) Urine RBC 58 /hpf (0 - 3) Urine Microscopic WBC 5 /HPF (0-3) H Urine Squamous Epithelial Cells Few /hpf (<5) Urine Bacteria Few /hpf (None Seen) H Urine Hyaline Casts Mod /lpf (0 - 2) Urine Mucus Few (None Seen) Urine Glucose Normal mg/dL (Normal) Urine Creatinine 41.61 mg/dL (30.0-125.0) Urine Protein/Creatinine Ratio 1.75 Urine Sodium 77 mmol/L (40-220) Urine Total Protein 72.7 mg/dL (1-14) H Microbiology Microbiology Date/Time Source Procedure Growth Status 09/11/24 16:31 Leg Right Gram Stain - Final Complete 09/11/24 16:31 Wound Culture - Final Enterococcus faecalis Complete 09/10/24 12:45 Blood Blood Culture - Preliminary NO GROWTH AFTER 72 HOURS OF INCUBATION. Resulted Assessment/Plan Assessment/Plan #1 acute resp failure: cont oxygen #2 encephalopathy- toxic/metabolic #3 gangrene/cellulitis both legs with sepsis: iv antibiotics #4 pvd #5 acute systolic heart failure: lasix #6 nstemi: cardio eval #7 acute liver failure: liver usg #8 acute renal failure ?vasomotor nephropathy: improving #9 hyperkalemia: repeat K #10 thrombocytopenia: dc lovenox, dc zyvox #11 hypothyroidism; resume med Plan discussed with: Other (nursing staff) Date of Service: Sep 15, 2024 Billing Provider: PRACHI BAXTER DO Common Visit Codes: [id number] INP/OBS CARE(HIGH) PRACHI BAXTER DO Sep 15, 2024 12:24
--- NOTE | 2024-09-15 13:32 | ECG ---
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
--- NOTE | 2024-09-15 13:56 | DVHPN2 ---
Progress Note Date Seen: Sep 15, 2024 Medical Necessity Reason Pt with a Central, PICC or Fol: Yes The following are medically ne: Lozoya Catheter Reason for lozoya catheter: Strict I&O Subjective Review of Systems No new complaints Patient reports: No new complaints Objective vital signs Vital Sign Date Time Temp Pulse Resp B/P (MAP) Pulse Ox O2 Delivery O2 Flow Rate FiO2 09/15/24 13:00 97.0 78 16 104/51 (68) 90 97.0 09/15/24 08:00 Nasal Cannula* 2 28 Total Intake and Output 09/14/24 09/14/24 09/15/24 15:00 23:00 07:00 Intake Total 261.250 ml 550 ml 1000 ml Output Total 650 ml 860 ml Balance 261.250 ml -100 ml 140 ml medications Current Medications Medications Dose Ordered Sig/Aram Route Start Time Stop Time Status Last Admin Dose Admin Piperacillin Sod/ Tazobactam Sod 100 ml @ 25 mls/hr Q12HR IV 09/11/24 10:00 09/15/24 08:40 25 MLS/HR Atorvastatin Calcium 40 mg HS PO 09/11/24 22:00 09/14/24 21:48 40 MG Ondansetron HCl 4 mg Q4HP PRN IV 09/11/24 04:30 Acetaminophen 650 mg Q6HP PRN PO 09/11/24 04:30 Nitroglycerin 0.4 mg Q5MINP PRN SL 09/11/24 04:30 Morphine Sulfate 2 mg Q30M PRN IV 09/11/24 04:30 Lorazepam 0.5 mg Q12HP PRN IV 09/11/24 04:45 09/11/24 15:49 0.5 MG Sodium Chloride 1,000 ml @ 75 mls/hr [id number] IV 09/12/24 13:45 09/15/24 01:47 75 MLS/HR Acetaminophen/ Hydrocodone Bitart 1 tab Q8HPRN PRN PO 09/13/24 05:00 09/13/24 04:58 1 TAB Enteral Nutritional Formula 240 ml BIDWM PO 09/13/24 18:00 09/15/24 08:40 240 ML Acetaminophen 650 mg Q4HR PRN PO 09/14/24 10:00 Hold Famotidine 20 mg BID PO 09/14/24 10:00 09/15/24 08:44 20 MG Fluconazole 100 mg DAILY PO 09/14/24 10:00 09/15/24 08:41 100 MG Furosemide 40 mg DAILY PO 09/14/24 10:00 09/15/24 08:44 40 MG Levothyroxine Sodium 25 mcg QAM PO 09/15/24 07:00 09/15/24 06:38 25 MCG Magnesium Hydroxide 30 ml DAILY PRN PO 09/14/24 10:00 Melatonin 5 mg DAILY PO 09/14/24 10:00 Examination Gen: Patient appears stated age. In no acute distress. Pulm: Bilateral air entry no wheezes, rhonchi or rales. CVS: RRR, Normal S1 and S2 Ext: No edema Neuro: AOx4. laboratory and microbiology Laboratory Tests 09/15/24 05:02 Test 09/15/24 05:02 Range/Units Serum Glucose 80 74-106 mg/dL Microbiology Date/Time Source Procedure Growth Status 09/11/24 16:31 Leg Right Gram Stain - Final Complete 09/11/24 16:31 Wound Culture - Final Enterococcus faecalis Complete 09/10/24 12:45 Blood Blood Culture - Final NO GROWTH AFTER 5 DAYS OF INCUBATION. Complete Labs and/or images reviewed: Labs reviewed by me Problem List/Assessment/Plan Problem List/Assessment/Plan IMP Acute kidney injury superimposed Chronic Kidney Disease secondary hemodynamic mediated aTN, FeNa > 2%- improving continued downtrend in serum creat 1.36, eGFR 52, improved urine output Acute hypoxic respiratory failure, on O2 Hyperkalemia-resolved Metabolic acidosis, resolved Bilateral foot gangrene/ischemia Peripheral arterial disease Hepatic encephalopathy Jaundice Transaminitis Sepsis Elevated troponin REC Serial chemistry panels Strict I&Os IV antibiotics May continue IVF We will continue to follow Plan discussed with: Patient SHIRLEY HAMPTON SINAN Sep 15, 2024 13:56
--- NOTE | 2024-09-15 16:42 | DVHPN2 ---
Progress Note Date Seen: Sep 15, 2024 Medical Necessity Reason Pt with a Central, PICC or Fol: Yes The following are medically ne: Lozoya Catheter Reason for lozoya catheter: Strict I&O Objective vital signs Vital Sign Date Time Temp Pulse Resp B/P (MAP) Pulse Ox O2 Delivery O2 Flow Rate FiO2 09/15/24 13:00 97.0 78 16 104/51 (68) 90 97.0 09/15/24 08:00 Nasal Cannula* 2 28 Total Intake and Output 09/14/24 09/14/24 09/15/24 14:59 22:59 06:59 Intake Total 261.250 ml 550 ml 1000 ml Output Total 650 ml 860 ml Balance 261.250 ml -100 ml 140 ml medications Current Medications Medications Dose Ordered Sig/Aram Route Start Time Stop Time Status Last Admin Dose Admin Piperacillin Sod/ Tazobactam Sod 100 ml @ 25 mls/hr Q12HR IV 09/11/24 10:00 09/15/24 08:40 25 MLS/HR Atorvastatin Calcium 40 mg HS PO 09/11/24 22:00 09/14/24 21:48 40 MG Ondansetron HCl 4 mg Q4HP PRN IV 09/11/24 04:30 Acetaminophen 650 mg Q6HP PRN PO 09/11/24 04:30 Nitroglycerin 0.4 mg Q5MINP PRN SL 09/11/24 04:30 Morphine Sulfate 2 mg Q30M PRN IV 09/11/24 04:30 Lorazepam 0.5 mg Q12HP PRN IV 09/11/24 04:45 09/11/24 15:49 0.5 MG Sodium Chloride 1,000 ml @ 75 mls/hr [id number] IV 09/12/24 13:45 09/15/24 01:47 75 MLS/HR Acetaminophen/ Hydrocodone Bitart 1 tab Q8HPRN PRN PO 09/13/24 05:00 09/13/24 04:58 1 TAB Enteral Nutritional Formula 240 ml BIDWM PO 09/13/24 18:00 09/15/24 08:40 240 ML Acetaminophen 650 mg Q4HR PRN PO 09/14/24 10:00 Hold Famotidine 20 mg BID PO 09/14/24 10:00 09/15/24 08:44 20 MG Fluconazole 100 mg DAILY PO 09/14/24 10:00 09/15/24 08:41 100 MG Furosemide 40 mg DAILY PO 09/14/24 10:00 09/15/24 08:44 40 MG Levothyroxine Sodium 25 mcg QAM PO 09/15/24 07:00 09/15/24 06:38 25 MCG Magnesium Hydroxide 30 ml DAILY PRN PO 09/14/24 10:00 Melatonin 5 mg DAILY PO 09/15/24 20:00 UNV Examination: GENERAL:Abnormal, HEENT:Abnormal, LUNGS:Abnormal, CVS:Abnormal, ABDOMEN:Abnormal laboratory and microbiology Laboratory Tests 09/15/24 05:02 Test 09/15/24 05:02 Range/Units Serum Glucose 80 74-106 mg/dL Microbiology Date/Time Source Procedure Growth Status 09/11/24 16:31 Leg Right Gram Stain - Final Complete 09/11/24 16:31 Wound Culture - Final Enterococcus faecalis Complete 09/10/24 12:45 Blood Blood Culture - Final NO GROWTH AFTER 5 DAYS OF INCUBATION. Complete Problem List/Assessment/Plan Problem List/Assessment/Plan pad nelia on ckd--dc dopamine, good uop ckd htn DM severe chf with low EF --can start low dose BB and HF meds outpt fu Plan discussed with: Patient Dietary Evaluation Review Comments: encourage PO intake to meet 75% of his needs Expected Outcomes/Goals: maintain weight, improved nutriton related lab values, healed wounds. Date of Service: Sep 15, 2024 Billing Provider: MATTEO KENNEDY MD Common Visit Codes: NOT BILLABLE MATTEO KENNEDY MD Sep 15, 2024 16:42
[2024-09-15] MEDS: MELATONIN 5 MG TAB PO SCH (21:09)
[2024-09-16] VITALS (8 sets, daily range): BP systolic 101–120; BP diastolic 60–84; PULSE 64–134; RESP 16–19; TEMP 97.6–97.9; O2SAT 92–96
[2024-09-16 07:50] LABS: Anion Gap 8 (5-15); Sodium 137 mmol/L (136-145)
[2024-09-16 07:53] LABS: Calcium 8.4 mg/dL (8.7-10.4); Carbon Dioxide 34 mmol/L (20-31); Chloride 95 mmol/L (98-107); Potassium 3.1 mmol/L (3.5-5.1)
[2024-09-16 07:55] LABS: Glucose 105 mg/dL (74-106)
[2024-09-16 07:56] LABS: BUN/Creatinine Ratio 22.1 (10.0-20.0)
[2024-09-16 08:01] LABS: Blood Urea Nitrogen 31 mg/dL (9-23)
--- NOTE | 2024-09-16 13:31 | DVHPN2 ---
Progress Note Date Seen: Sep 16, 2024 Medical Necessity Reason Pt with a Central, PICC or Fol: Yes The following are medically ne: Lozoya Catheter Reason for lozoya catheter: Strict I&O Subjective Review of Systems No new complaints. Patient reports: No new complaints, Feels better Objective vital signs Vital Sign Date Time Temp Pulse Resp B/P (MAP) Pulse Ox O2 Delivery O2 Flow Rate FiO2 09/16/24 09:10 93/58 09/16/24 08:30 97.6 87 17 95 97.6 09/16/24 08:00 Nasal Cannula* 2 28 Total Intake and Output 09/15/24 09/15/24 09/16/24 15:00 23:00 07:00 Intake Total 300 ml 950 ml 900 ml Output Total 1375 ml 600 ml Balance 300 ml -425 ml 300 ml medications Current Medications Medications Dose Ordered Sig/Aram Route Start Time Stop Time Status Last Admin Dose Admin Piperacillin Sod/ Tazobactam Sod 100 ml @ 25 mls/hr Q12HR IV 09/11/24 10:00 09/16/24 09:08 25 MLS/HR Atorvastatin Calcium 40 mg HS PO 09/11/24 22:00 09/15/24 21:09 40 MG Ondansetron HCl 4 mg Q4HP PRN IV 09/11/24 04:30 Acetaminophen 650 mg Q6HP PRN PO 09/11/24 04:30 Nitroglycerin 0.4 mg Q5MINP PRN SL 09/11/24 04:30 Morphine Sulfate 2 mg Q30M PRN IV 09/11/24 04:30 Lorazepam 0.5 mg Q12HP PRN IV 09/11/24 04:45 09/11/24 15:49 0.5 MG Sodium Chloride 1,000 ml @ 75 mls/hr [id number] IV 09/12/24 13:45 09/15/24 01:47 75 MLS/HR Acetaminophen/ Hydrocodone Bitart 1 tab Q8HPRN PRN PO 09/13/24 05:00 09/13/24 04:58 1 TAB Enteral Nutritional Formula 240 ml BIDWM PO 09/13/24 18:00 09/16/24 09:11 240 ML Acetaminophen 650 mg Q4HR PRN PO 09/14/24 10:00 Hold Famotidine 20 mg BID PO 09/14/24 10:00 09/16/24 09:12 20 MG Fluconazole 100 mg DAILY PO 09/14/24 10:00 09/16/24 09:08 100 MG Furosemide 40 mg DAILY PO 09/14/24 10:00 09/16/24 09:10 40 MG Levothyroxine Sodium 25 mcg QAM PO 09/15/24 07:00 09/16/24 05:59 25 MCG Magnesium Hydroxide 30 ml DAILY PRN PO 09/14/24 10:00 Melatonin 5 mg HS PO 09/15/24 22:00 09/15/24 21:09 5 MG Examination Gen: Patient appears stated age. In no acute distress. Pulm: Bilateral air entry no wheezes, rhonchi or rales. CVS: RRR, Normal S1 and S2 Ext: + edema laboratory and microbiology Laboratory Tests 09/16/24 06:20 09/15/24 05:02 Test 09/16/24 06:20 Range/Units Serum Glucose 105 74-106 mg/dL Microbiology Date/Time Source Procedure Growth Status 09/11/24 16:31 Leg Right Gram Stain - Final Complete 09/11/24 16:31 Wound Culture - Final Enterococcus faecalis Complete 09/10/24 12:45 Blood Blood Culture - Final NO GROWTH AFTER 5 DAYS OF INCUBATION. Complete Labs and/or images reviewed: Labs reviewed by me Problem List/Assessment/Plan Problem List/Assessment/Plan IMP Acute kidney injury superimposed Chronic Kidney Disease secondary hemodynamic mediated aTN, FeNa > 2%- serum creat 1.40, eGFR 50, improved urine output Acute hypoxic respiratory failure, on O2 Hyperkalemia-resolved Metabolic acidosis, resolved Bilateral foot gangrene/ischemia Peripheral arterial disease Hepatic encephalopathy Jaundice Transaminitis Sepsis Elevated troponin REC Serial chemistry panels Strict I&Os IV antibiotics Agree with diuresis/IVF D/C Supplemental KCL prn We will continue to follow Plan discussed with: Patient Dietary Evaluation Review Comments: encourage PO intake to meet 75% of his needs Expected Outcomes/Goals: maintain weight, improved nutriton related lab values, healed wounds. SHIRLEY HAMPTON Sep 16, 2024 13:31
--- NOTE | 2024-09-16 13:58 | DVHPN2 ---
Reviewed: Care Plan, H&P, Labs, Medications, Previous Orders, Radiology Changes from previous H/P or p: No Changes General: Per HPI Objective Vitals Vital Signs Date Time Temp Pulse Resp B/P (MAP) Pulse Ox O2 Delivery O2 Flow Rate FiO2 09/16/24 09:10 93/58 09/16/24 08:30 97.6 87 17 95 97.6 09/16/24 08:00 Nasal Cannula* 2 28 Intake/Output Intake and Output 09/16/24 07:00 Intake Total 2150 ml Output Total 1975 ml Balance 175 ml Intake Oral 1650 ml IV Total 500 ml Output Urine Total 1975 ml # Bowel Movements 3 Medications Current Medications Medications Dose Ordered Sig/Aram Route Start Time Stop Time Status Last Admin Dose Admin Piperacillin Sod/ Tazobactam Sod 100 ml @ 25 mls/hr Q12HR IV 09/11/24 10:00 09/16/24 09:08 25 MLS/HR Atorvastatin Calcium 40 mg HS PO 09/11/24 22:00 09/15/24 21:09 40 MG Ondansetron HCl 4 mg Q4HP PRN IV 09/11/24 04:30 Acetaminophen 650 mg Q6HP PRN PO 09/11/24 04:30 Nitroglycerin 0.4 mg Q5MINP PRN SL 09/11/24 04:30 Morphine Sulfate 2 mg Q30M PRN IV 09/11/24 04:30 Lorazepam 0.5 mg Q12HP PRN IV 09/11/24 04:45 09/11/24 15:49 0.5 MG Sodium Chloride 1,000 ml @ 75 mls/hr [id number] IV 09/12/24 13:45 09/15/24 01:47 75 MLS/HR Acetaminophen/ Hydrocodone Bitart 1 tab Q8HPRN PRN PO 09/13/24 05:00 09/13/24 04:58 1 TAB Enteral Nutritional Formula 240 ml BIDWM PO 09/13/24 18:00 09/16/24 09:11 240 ML Acetaminophen 650 mg Q4HR PRN PO 09/14/24 10:00 Hold Famotidine 20 mg BID PO 09/14/24 10:00 09/16/24 09:12 20 MG Fluconazole 100 mg DAILY PO 09/14/24 10:00 09/16/24 09:08 100 MG Furosemide 40 mg DAILY PO 09/14/24 10:00 09/16/24 09:10 40 MG Levothyroxine Sodium 25 mcg QAM PO 09/15/24 07:00 09/16/24 05:59 25 MCG Magnesium Hydroxide 30 ml DAILY PRN PO 09/14/24 10:00 Melatonin 5 mg HS PO 09/15/24 22:00 09/15/24 21:09 5 MG Laboratory Results Laboratory Tests 09/15/24 05:02 09/16/24 06:20 Chemistry Test 09/16/24 06:20 Calcium Level 8.4 mg/dL (8.7-10.4) L Urinalysis Test 09/10/24 23:45 09/11/24 14:25 Urine Color Yellow (Yellow) Urine Clarity Turbid (Clear) H Urine pH 5.0 (5.0-9.0) Urine Specific [place] 1.020 (1.001-1.035) Urine Protein 1+ (Negative) H Urine Ketones Negative (Negative) Urine Blood 2+ /uL (Negative) H Urine Nitrite Negative (Negative) Urine Bilirubin Negative (Negative) Urine Urobilinogen Normal mg/dL (Negative) Urine Leukocyte Esterase Negative /uL (Negative) Urine RBC 58 /hpf (0 - 3) Urine Microscopic WBC 5 /HPF (0-3) H Urine Squamous Epithelial Cells Few /hpf (<5) Urine Bacteria Few /hpf (None Seen) H Urine Hyaline Casts Mod /lpf (0 - 2) Urine Mucus Few (None Seen) Urine Glucose Normal mg/dL (Normal) Urine Creatinine 41.61 mg/dL (30.0-125.0) Urine Protein/Creatinine Ratio 1.75 Urine Sodium 77 mmol/L (40-220) Urine Total Protein 72.7 mg/dL (1-14) H Microbiology Microbiology Date/Time Source Procedure Growth Status 09/11/24 16:31 Leg Right Gram Stain - Final Complete 09/11/24 16:31 Wound Culture - Final Enterococcus faecalis Complete 09/10/24 12:45 Blood Blood Culture - Final NO GROWTH AFTER 5 DAYS OF INCUBATION. Complete Assessment/Plan Assessment/Plan #1 acute resp failure: cont oxygen #2 encephalopathy- toxic/metabolic #3 gangrene/cellulitis both legs with sepsis: iv antibiotics #4 pvd #5 acute systolic heart failure: lasix #6 nstemi: cardio eval #7 acute liver failure: liver usg #8 acute renal failure ?vasomotor nephropathy: improving #9 hyperkalemia: repeat K #10 thrombocytopenia: dc lovenox, dc zyvox #11 hypothyroidism; resume med 09/16/2024: significant edema, will start on IV diuretics, Plan discussed with: Patient My Orders Orders - PRACHI BAXTER DO Procedure Category Date Status Time Melatonin (Melatonin) PHA 09/15/24 In Process 22:00 Date of Service: Sep 16, 2024 Billing Provider: PRACHI BAXTER DO Common Visit Codes: [id number] INP/OBS CARE(HIGH) PRACHI BAXTER DO Sep 16, 2024 13:58
[2024-09-16] MEDS: FUROSEMIDE 100 MG/10ML VIAL IV ONE (16:39)
[2024-09-16] MEDS: POTASSIUM CHL 20 Meq TABLET PO ONE ×3 (16:40→18:34)
[2024-09-16 19:15] LABS: Magnesium 1.4 mg/dL (1.6-2.6)
--- NOTE | 2024-09-16 20:42 | ECG ---
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 Incomplete right bundle branch block Electronically Signed On 09-18-2024 8:17:58 PST by Yemi Hardy Please click the below link to view image of tracing.
[2024-09-16] MEDS: METOPROLOL TARTRATE 25 MG TAB PO SCH (21:25)
[2024-09-17] VITALS (8 sets, daily range): BP systolic 123–144; BP diastolic 57–91; PULSE 64–91; RESP 16–20; TEMP 97–98.8; O2SAT 92–95
[2024-09-17 11:45] LABS: Mean Corpuscular Hemoglobin 33.6 pg (28.0-32.0); Platelet Count (auto) 87 10^3/uL (140-450); White Blood Cell 3.9 10^3/uL (4.4-10.8)
[2024-09-17 11:47] LABS: Hematocrit 46.2 % (41.0-53.0); Hemoglobin 15.3 g/dL (13.5-17.5); Mean Corpuscular Volume 101.7 fL (80.0-100.0); Red Blood Cells 4.54 10^6/uL (4.5-5.90); Red Cell Distribution Width 16.3 % (11.8-14.3)
[2024-09-17 11:51] LABS: Basophils % (manual) 0 (0.0-2.0); Blast Cells 0; Eosinophils % (manual) 0 (0-7); Metamyelocytes % 0; Myelocytes % 0; Promyelocytes % 0; Reactive Lymphocytes 0
[2024-09-17 12:02] LABS: Anion Gap 11 (5-15); BUN/Creatinine Ratio 18.6 (10.0-20.0); Calcium 8.7 mg/dL (8.7-10.4); Glucose 101 mg/dL (74-106); Potassium 4.3 mmol/L (3.5-5.1); Sodium 140 mmol/L (136-145)
[2024-09-17 12:04] LABS: Alanine Aminotransferase 68 U/L (7-40); Alkaline Phosphatase 166 U/L (46-116); Aspartate Aminotransferase 102 U/L (13-40); Bilirubin, Total 2.2 mg/dL (0.2-1.0); Blood Urea Nitrogen 34 mg/dL (9-23); Carbon Dioxide 32 mmol/L (20-31); Chloride 97 mmol/L (98-107); Total Protein 5.3 g/dL (5.7-8.2)
--- NOTE | 2024-09-17 13:19 | DVHPN2 ---
Progress Note Date Seen: Sep 17, 2024 Medical Necessity Reason Pt with a Central, PICC or Fol: Yes The following are medically ne: Lozoya Catheter Reason for lozoya catheter: Strict I&O Subjective Patient reports: No new complaints Objective vital signs Vital Sign Date Time Temp Pulse Resp B/P (MAP) Pulse Ox O2 Delivery O2 Flow Rate FiO2 09/17/24 09:00 97.0 90 16 144/91 (108) 93 97.0 09/17/24 08:03 Nasal Cannula* 2 28 Total Intake and Output 09/16/24 09/16/24 09/17/24 15:00 23:00 07:00 Intake Total 318 ml 300 ml Output Total 480 ml 250 ml Balance -162 ml 50 ml medications Current Medications Medications Dose Ordered Sig/Aram Route Start Time Stop Time Status Last Admin Dose Admin Piperacillin Sod/ Tazobactam Sod 100 ml @ 25 mls/hr Q12HR IV 09/11/24 10:00 09/17/24 11:38 25 MLS/HR Atorvastatin Calcium 40 mg HS PO 09/11/24 22:00 09/16/24 21:25 40 MG Ondansetron HCl 4 mg Q4HP PRN IV 09/11/24 04:30 Acetaminophen 650 mg Q6HP PRN PO 09/11/24 04:30 Nitroglycerin 0.4 mg Q5MINP PRN SL 09/11/24 04:30 Morphine Sulfate 2 mg Q30M PRN IV 09/11/24 04:30 Lorazepam 0.5 mg Q12HP PRN IV 09/11/24 04:45 09/17/24 00:26 0.5 MG Acetaminophen/ Hydrocodone Bitart 1 tab Q8HPRN PRN PO 09/13/24 05:00 09/13/24 04:58 1 TAB Enteral Nutritional Formula 240 ml BIDWM PO 09/13/24 18:00 09/16/24 19:13 240 ML Acetaminophen 650 mg Q4HR PRN PO 09/14/24 10:00 Hold Famotidine 20 mg BID PO 09/14/24 10:00 09/16/24 21:25 20 MG Fluconazole 100 mg DAILY PO 09/14/24 10:00 09/16/24 09:08 100 MG Furosemide 40 mg DAILY PO 09/14/24 10:00 09/16/24 09:10 40 MG Levothyroxine Sodium 25 mcg QAM PO 09/15/24 07:00 09/16/24 05:59 25 MCG Magnesium Hydroxide 30 ml DAILY PRN PO 09/14/24 10:00 Melatonin 5 mg HS PO 09/15/24 22:00 09/16/24 21:25 5 MG Metoprolol Tartrate 25 mg BID PO 09/16/24 22:00 09/16/24 21:25 25 MG Examination Gen: Patient appears stated age. In no acute distress. Pulm: Bilateral air entry no wheezes, rhonchi or rales. CVS: RRR, Normal S1 and S2 Ext: + edema Neuro: Somnolent laboratory and microbiology Laboratory Tests 09/17/24 11:02 Test 09/17/24 11:02 Range/Units Serum Glucose 101 74-106 mg/dL Microbiology Date/Time Source Procedure Growth Status 09/11/24 16:31 Leg Right Gram Stain - Final Complete 09/11/24 16:31 Wound Culture - Final Enterococcus faecalis Complete 09/10/24 12:45 Blood Blood Culture - Final NO GROWTH AFTER 5 DAYS OF INCUBATION. Complete Labs and/or images reviewed: Labs reviewed by me Problem List/Assessment/Plan Problem List/Assessment/Plan IMP Acute kidney injury superimposed Chronic Kidney Disease secondary hemodynamic mediated aTN, FeNa > 2%- uptrend serum creat 1.83. eGFR 36 Acute hypoxic respiratory failure, on O2 Hyperkalemia-resolved Metabolic acidosis, resolved Bilateral foot gangrene/ischemia Peripheral arterial disease Hepatic encephalopathy Jaundice Transaminitis Sepsis Elevated troponin REC Serial chemistry panels Strict I&Os IV antibiotics Supplemental KCL prn Defer to primary physician use of diuretics We will continue to follow Case discussed with Dr. Matthew Edmond Plan discussed with: Other (Dr. Edmond) Dietary Evaluation Review Comments: encourage PO intake to meet 75% of his needs Expected Outcomes/Goals: maintain weight, improved nutriton related lab values, healed wounds. SHIRLEY HAMPTON Sep 17, 2024 13:19
[2024-09-17 13:37] LABS: Band Neutrophils % (manual) 5; Lymphocytes % (manual) 17 (10.0-50.0); Monocytes % (manual) 15 (0-12); Platelet Estimate Decreased
--- NOTE | 2024-09-17 15:51 | ECG ---
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
[2024-09-17] MEDS: FUROSEMIDE 100 MG/10ML VIAL IV SCH (20:30)
--- NOTE | 2024-09-17 22:23 | DVHPN2 ---
Reviewed: Care Plan, H&P, Labs, Medications, Previous Orders, Radiology Changes from previous H/P or p: No Changes General: Per HPI Objective Vitals Vital Signs Date Time Temp Pulse Resp B/P (MAP) Pulse Ox O2 Delivery O2 Flow Rate FiO2 09/17/24 21:44 91 129/71 09/17/24 13:00 98.8 16 92 98.8 09/17/24 08:03 Nasal Cannula* 2 28 Intake/Output Intake and Output 09/17/24 06:59 Intake Total 618 ml Output Total 630 ml Balance -12 ml Intake Oral 518 ml IV Total 100 ml Output Urine Total 630 ml # Bowel Movements 2 Medications Current Medications Medications Dose Ordered Sig/Aram Route Start Time Stop Time Status Last Admin Dose Admin Piperacillin Sod/ Tazobactam Sod 100 ml @ 25 mls/hr Q12HR IV 09/11/24 10:00 09/17/24 21:42 25 MLS/HR Atorvastatin Calcium 40 mg HS PO 09/11/24 22:00 09/17/24 21:42 40 MG Ondansetron HCl 4 mg Q4HP PRN IV 09/11/24 04:30 Acetaminophen 650 mg Q6HP PRN PO 09/11/24 04:30 Nitroglycerin 0.4 mg Q5MINP PRN SL 09/11/24 04:30 Morphine Sulfate 2 mg Q30M PRN IV 09/11/24 04:30 Lorazepam 0.5 mg Q12HP PRN IV 09/11/24 04:45 09/17/24 00:26 0.5 MG Acetaminophen/ Hydrocodone Bitart 1 tab Q8HPRN PRN PO 09/13/24 05:00 09/13/24 04:58 1 TAB Enteral Nutritional Formula 240 ml BIDWM PO 09/13/24 18:00 09/16/24 19:13 240 ML Acetaminophen 650 mg Q4HR PRN PO 09/14/24 10:00 Hold Famotidine 20 mg BID PO 09/14/24 10:00 09/17/24 21:42 20 MG Fluconazole 100 mg DAILY PO 09/14/24 10:00 09/16/24 09:08 100 MG Levothyroxine Sodium 25 mcg QAM PO 09/15/24 07:00 09/16/24 05:59 25 MCG Magnesium Hydroxide 30 ml DAILY PRN PO 09/14/24 10:00 Melatonin 5 mg HS PO 09/15/24 22:00 09/17/24 21:44 5 MG Metoprolol Tartrate 25 mg BID PO 09/16/24 22:00 09/17/24 21:44 25 MG Furosemide 60 mg BIDD IV 09/17/24 18:00 09/17/24 20:30 60 MG Laboratory Results Laboratory Tests 09/17/24 11:02 Chemistry Test 09/17/24 11:02 Albumin 3.0 g/dL (3.2-4.8) L Calcium Level 8.7 mg/dL (8.7-10.4) Total Protein 5.3 g/dL (5.7-8.2) L LFT Test 09/17/24 11:02 Alanine Aminotransferase (ALT) 68 U/L (7-40) H Alkaline Phosphatase 166 U/L (46-116) H Aspartate Amino Transferase (AST) 102 U/L (13-40) H Total Bilirubin 2.2 mg/dL (0.2-1.0) H Urinalysis Test 09/10/24 23:45 09/11/24 14:25 Urine Color Yellow (Yellow) Urine Clarity Turbid (Clear) H Urine pH 5.0 (5.0-9.0) Urine Specific [place] 1.020 (1.001-1.035) Urine Protein 1+ (Negative) H Urine Ketones Negative (Negative) Urine Blood 2+ /uL (Negative) H Urine Nitrite Negative (Negative) Urine Bilirubin Negative (Negative) Urine Urobilinogen Normal mg/dL (Negative) Urine Leukocyte Esterase Negative /uL (Negative) Urine RBC 58 /hpf (0 - 3) Urine Microscopic WBC 5 /HPF (0-3) H Urine Squamous Epithelial Cells Few /hpf (<5) Urine Bacteria Few /hpf (None Seen) H Urine Hyaline Casts Mod /lpf (0 - 2) Urine Mucus Few (None Seen) Urine Glucose Normal mg/dL (Normal) Urine Creatinine 41.61 mg/dL (30.0-125.0) Urine Protein/Creatinine Ratio 1.75 Urine Sodium 77 mmol/L (40-220) Urine Total Protein 72.7 mg/dL (1-14) H Microbiology Microbiology Date/Time Source Procedure Growth Status 09/17/24 10:15 Stool Clostridium difficile Toxin Assay - Final Complete 09/11/24 16:31 Leg Right Gram Stain - Final Complete 09/11/24 16:31 Wound Culture - Final Enterococcus faecalis Complete 09/10/24 12:45 Blood Blood Culture - Final NO GROWTH AFTER 5 DAYS OF INCUBATION. Complete Assessment/Plan Assessment/Plan #1 acute resp failure: cont oxygen #2 encephalopathy- toxic/metabolic #3 gangrene/cellulitis both legs with sepsis: iv antibiotics #4 pvd #5 acute systolic heart failure: lasix #6 nstemi: cardio eval #7 acute liver failure: liver usg #8 acute renal failure ?vasomotor nephropathy: improving #9 hyperkalemia: repeat K #10 thrombocytopenia: dc lovenox, dc zyvox #11 hypothyroidism; resume med 09/16/2024: significant edema, will start on IV diuretics, 09/17/2024; continue with current care, pt may need SNF placement Plan discussed with: Other (nursing staff) My Orders Orders - PRACHI BAXTER DO Procedure Category Date Status Time Furosemide Injection PHA 09/17/24 In Process (Lasix Injection) 18:00 Basic Metabolic Panel LAB 09/20/24 Verified 05:00 Basic Metabolic Panel LAB 09/22/24 Verified 05:00 * Manager [employer] CONS 09/17/24 Transmitted Consult Date of Service: Sep 17, 2024 Billing Provider: PRACHI BAXTER DO Common Visit Codes: [id number] INP/OBS CARE(HIGH) PRACHI BAXTER DO Sep 17, 2024 22:23
[2024-09-18] VITALS (8 sets, daily range): BP systolic 98–137; BP diastolic 47–76; PULSE 78–91; RESP 17–20; TEMP 97.2–98.2; O2SAT 84–94
[2024-09-18 07:28] LABS: Anion Gap 11 (5-15); BUN/Creatinine Ratio 19.8 (10.0-20.0); Chloride 99 mmol/L (98-107); Glucose 83 mg/dL (74-106); Potassium 4.2 mmol/L (3.5-5.1); Sodium 141 mmol/L (136-145)
[2024-09-18 07:29] LABS: Alanine Aminotransferase 56 U/L (7-40); Albumin 2.8 g/dL (3.2-4.8); Alkaline Phosphatase 145 U/L (46-116); Aspartate Aminotransferase 79 U/L (13-40); Bilirubin, Total 2.3 mg/dL (0.2-1.0); Blood Urea Nitrogen 40 mg/dL (9-23); Carbon Dioxide 31 mmol/L (20-31)
[2024-09-18 07:31] LABS: Basophils # (auto) 0 10 ^3/uL (0-0.2); Basophils % (auto) 0.6 % (0.0-2.0); Eosinophils # (auto) 0 10 ^3/uL (0-0.8); Eosinophils % (auto) 0.8 % (0.0-7.0); Hematocrit 48.5 % (41.0-53.0); Hemoglobin 15.9 g/dL (13.5-17.5); Lymphocytes # (auto) 0.6 10 ^3/uL (0.4-5.4); Lymphocytes % (auto) 11.4 % (10.0-50.0); Mean Corpuscular Hemoglobin 33.2 pg (28.0-32.0); Mean Corpuscular Hgb Conc. 32.7 g/dL (32.0-36.0); Mean Corpuscular Volume 101.3 fL (80.0-100.0); Monocytes # (auto) 0.8 10 ^3/uL (0-1.3); Monocytes % (auto) 16.8 % (0.0-12.0); Neutrophils # (auto) 3.4 10 ^3/uL (1.6-8.6); Neutrophils % (auto) 70.4 % (37.0-80.0); Nucleated Red Blood Cells % 0.4 %; Red Blood Cells 4.79 10^6/uL (4.5-5.90); Red Cell Distribution Width 16.1 % (11.8-14.3); White Blood Cell 4.9 10^3/uL (4.4-10.8)
[2024-09-18 08:03] LABS: Platelet Count (auto) 81 10^3/uL (140-450)
--- NOTE | 2024-09-18 12:27 | DVHPN2 ---
Progress Note Date Seen: Sep 18, 2024 Medical Necessity Reason Pt with a Central, PICC or Fol: Yes The following are medically ne: Lozoya Catheter Reason for lozoya catheter: Strict I&O Subjective Patient reports: No new complaints Review of Systems: HEENT:Normal, CVS:Normal, RESPIRATORY:Normal, GI:Normal, :Normal, MSK:Normal, NEURO:Normal Objective vital signs Vital Sign Date Time Temp Pulse Resp B/P (MAP) Pulse Ox O2 Delivery O2 Flow Rate FiO2 09/18/24 09:52 79 137/69 09/18/24 05:21 97.6 20 89 97.6 09/17/24 20:00 Room Air* 0 21 Total Intake and Output 09/17/24 09/17/24 09/18/24 15:00 23:00 07:00 Intake Total 200 ml 150 ml Output Total 900 ml 250 ml Balance -700 ml -100 ml medications Current Medications Medications Dose Ordered Sig/Aram Route Start Time Stop Time Status Last Admin Dose Admin Piperacillin Sod/ Tazobactam Sod 100 ml @ 25 mls/hr Q12HR IV 09/11/24 10:00 09/18/24 09:52 25 MLS/HR Atorvastatin Calcium 40 mg HS PO 09/11/24 22:00 09/17/24 21:42 40 MG Ondansetron HCl 4 mg Q4HP PRN IV 09/11/24 04:30 Acetaminophen 650 mg Q6HP PRN PO 09/11/24 04:30 Nitroglycerin 0.4 mg Q5MINP PRN SL 09/11/24 04:30 Morphine Sulfate 2 mg Q30M PRN IV 09/11/24 04:30 Lorazepam 0.5 mg Q12HP PRN IV 09/11/24 04:45 09/17/24 00:26 0.5 MG Acetaminophen/ Hydrocodone Bitart 1 tab Q8HPRN PRN PO 09/13/24 05:00 09/18/24 09:52 1 TAB Enteral Nutritional Formula 240 ml BIDWM PO 09/13/24 18:00 09/18/24 08:00 240 ML Acetaminophen 650 mg Q4HR PRN PO 09/14/24 10:00 Hold Famotidine 20 mg BID PO 09/14/24 10:00 09/18/24 09:51 20 MG Fluconazole 100 mg DAILY PO 09/14/24 10:00 09/18/24 09:51 100 MG Levothyroxine Sodium 25 mcg QAM PO 09/15/24 07:00 09/18/24 05:57 25 MCG Magnesium Hydroxide 30 ml DAILY PRN PO 09/14/24 10:00 Melatonin 5 mg HS PO 09/15/24 22:00 09/17/24 21:44 5 MG Metoprolol Tartrate 25 mg BID PO 09/16/24 22:00 09/18/24 09:52 25 MG Furosemide 60 mg BIDD IV 09/17/24 18:00 09/18/24 05:57 60 MG Examination: GENERAL:Normal, HEENT:Normal, NECK:Normal, LUNGS:Normal, CVS:Normal, ABDOMEN:Normal, MSK:Normal, MSK:Abnormal (ulcers both legs), SKIN:Normal, NEURO:Normal, :Normal laboratory and microbiology Laboratory Tests 09/18/24 06:58 Test 09/18/24 06:58 Range/Units Serum Glucose 83 74-106 mg/dL Microbiology Date/Time Source Procedure Growth Status 09/17/24 10:15 Stool Clostridium difficile Toxin Assay - Final Complete 09/11/24 16:31 Leg Right Gram Stain - Final Complete 09/11/24 16:31 Wound Culture - Final Enterococcus faecalis Complete 09/10/24 12:45 Blood Blood Culture - Final NO GROWTH AFTER 5 DAYS OF INCUBATION. Complete Problem List/Assessment/Plan Problem List/Assessment/Plan #1 acute resp failure: cont oxygen #2 encephalopathy- toxic/metabolic #3 gangrene/cellulitis both legs with sepsis: iv antibiotics #4 pvd #5 acute systolic heart failure: dc lasix #6 nstemi: cardio eval #7 acute liver failure/liver cirrhosis liver usg #8 acute renal failure ?vasomotor nephropathy: improving #9 hyperkalemia: repeat K #10 thrombocytopenia: dc lovenox, dc zyvox #11 hypothyroidism; resume med will arrange family meeting advance care planning- full code- time spent 19 mins Plan discussed with: Patient My Orders My Orders Orders - PRADIP ORTIZ MD Procedure Category Date Status Time Lorazepam 2mg/Ml Inj PHA 09/18/24 Verified (Ativan Inj) 12:30 Complete Blood Count LAB 09/19/24 Verified 06:00 Comprehensive LAB 09/19/24 Verified Metabolic Panel 06:00 Ammonia LAB 09/19/24 Verified 06:00 Chest Portable XY 09/18/24 Verified 12:20 Dietary Evaluation Review Comments: encourage PO intake to meet 75% of his needs Expected Outcomes/Goals: maintain weight, improved nutriton related lab values, healed wounds. Date of Service: Sep 18, 2024 Billing Provider: PRADIP ORTIZ MD Common Visit Codes: [id number] INP/OBS CARE(HIGH) Secondary Visit Codes: [id number] CARE PLAN 30 MINUTES PRADIP ORTIZ MD Sep 18, 2024 12:27
--- NOTE | 2024-09-18 13:31 | DVHPN2 ---
Progress Note Date Seen: Sep 18, 2024 Medical Necessity Reason Pt with a Central, PICC or Fol: Yes The following are medically ne: Lozoya Catheter Reason for lozoya catheter: Strict I&O Subjective Patient reports: No new complaints Objective vital signs Vital Sign Date Time Temp Pulse Resp B/P (MAP) Pulse Ox O2 Delivery O2 Flow Rate FiO2 09/18/24 13:00 97.2 89 17 126/65 (85) 93 97.2 09/18/24 08:15 Room Air* 0 21 Total Intake and Output 09/17/24 09/17/24 09/18/24 15:00 23:00 07:00 Intake Total 200 ml 150 ml Output Total 900 ml 250 ml Balance -700 ml -100 ml medications Current Medications Medications Dose Ordered Sig/Aram Route Start Time Stop Time Status Last Admin Dose Admin Piperacillin Sod/ Tazobactam Sod 100 ml @ 25 mls/hr Q12HR IV 09/11/24 10:00 09/18/24 09:52 25 MLS/HR Ondansetron HCl 4 mg Q4HP PRN IV 09/11/24 04:30 Acetaminophen 650 mg Q6HP PRN PO 09/11/24 04:30 Nitroglycerin 0.4 mg Q5MINP PRN SL 09/11/24 04:30 Morphine Sulfate 2 mg Q30M PRN IV 09/11/24 04:30 Acetaminophen/ Hydrocodone Bitart 1 tab Q8HPRN PRN PO 09/13/24 05:00 09/18/24 09:52 1 TAB Enteral Nutritional Formula 240 ml BIDWM PO 09/13/24 18:00 09/18/24 08:00 240 ML Acetaminophen 650 mg Q4HR PRN PO 09/14/24 10:00 Hold Levothyroxine Sodium 25 mcg QAM PO 09/15/24 07:00 09/18/24 05:57 25 MCG Magnesium Hydroxide 30 ml DAILY PRN PO 09/14/24 10:00 Melatonin 5 mg HS PO 09/15/24 22:00 09/17/24 21:44 5 MG Lorazepam 0.5 mg Q8HP PRN IV 09/18/24 12:30 Examination: CVS:Normal, ABDOMEN:Abnormal laboratory and microbiology Laboratory Tests 09/18/24 06:58 Test 09/18/24 06:58 Range/Units Serum Glucose 83 74-106 mg/dL Microbiology Date/Time Source Procedure Growth Status 09/17/24 10:15 Stool Clostridium difficile Toxin Assay - Final Complete 09/11/24 16:31 Leg Right Gram Stain - Final Complete 09/11/24 16:31 Wound Culture - Final Enterococcus faecalis Complete 09/10/24 12:45 Blood Blood Culture - Final NO GROWTH AFTER 5 DAYS OF INCUBATION. Complete Problem List/Assessment/Plan Problem List/Assessment/Plan Acute kidney injury superimposed Chronic Kidney Disease secondary hemodynamic mediated aTN, FeNa > 2%- uptrend serum creat 1.83. eGFR 36 Acute hypoxic respiratory failure, on O2 Bilateral foot gangrene/ischemia Peripheral arterial disease Hepatic encephalopathy Jaundice Transaminitis Sepsis Elevated troponin IV antibiotics check Mg level today avoid hypotension lasix held today replace electrolytes IV albumin PRN if hypotension family meeting pending Plan discussed with: Patient Dietary Evaluation Review Comments: encourage PO intake to meet 75% of his needs Expected Outcomes/Goals: maintain weight, improved nutriton related lab values, healed wounds. EDMOND KUHN MD Sep 18, 2024 13:31
--- NOTE | 2024-09-18 14:01 | DVH ---
EXAM: XY CHEST PORTABLE Indication: chf Technique: Single frontal view of the chest was obtained Comparison: XY CHEST PORTABLE on DOS: 09/12/24, XY CHEST PORTABLE on DOS: 09/10/24 FINDINGS: Lines and Tubes: None Lungs: Pulmonary vascular congestion. Pleura: Trace right pleural effusion. No pneumothorax. Cardiomediastinal contours: Cardiomegaly. Atherosclerotic vascular calcifications of the thoracic aor ta are noted. Bones: No acute osseous abnormality. IMPRESSION: Cardiomegaly with pulmonary vascular congestion.
[2024-09-18] MEDS: LORazepam 2MG/ML-1ML VIAL IV PRN (21:16)
[2024-09-19] VITALS (8 sets, daily range): BP systolic 119–176; BP diastolic 73–99; PULSE 52–140; RESP 16–18; TEMP 97.4–98.3; O2SAT 92–99
[2024-09-19 10:50] LABS: Calcium 8.9 mg/dL (8.7-10.4); Chloride 99 mmol/L (98-107); Potassium 4.7 mmol/L (3.5-5.1); Sodium 141 mmol/L (136-145)
[2024-09-19 10:51] LABS: Alanine Aminotransferase 52 U/L (7-40); Albumin 2.8 g/dL (3.2-4.8); Alkaline Phosphatase 131 U/L (46-116); Anion Gap 11 (5-15); Aspartate Aminotransferase 72 U/L (13-40); BUN/Creatinine Ratio 25.3 (10.0-20.0); Bilirubin, Total 2.1 mg/dL (0.2-1.0); Blood Urea Nitrogen 56 mg/dL (9-23); Carbon Dioxide 31 mmol/L (20-31); Glucose 107 mg/dL (74-106); Total Protein 4.8 g/dL (5.7-8.2)
--- NOTE | 2024-09-19 11:27 | DVHPN2 ---
Progress Note Date Seen: Sep 19, 2024 Medical Necessity Reason Pt with a Central, PICC or Fol: Yes The following are medically ne: Lozoya Catheter Reason for lozoya catheter: Strict I&O Subjective Patient reports: No new complaints Review of Systems: HEENT:Normal, CVS:Normal, RESPIRATORY:Normal, GI:Normal, :Normal, MSK:Normal, NEURO:Normal Objective vital signs Vital Sign Date Time Temp Pulse Resp B/P (MAP) Pulse Ox O2 Delivery O2 Flow Rate FiO2 09/19/24 05:00 98.3 80 17 119/80 (93) 95 98.3 09/18/24 20:00 Nasal Cannula* 2 28 Total Intake and Output 09/18/24 09/18/24 09/19/24 15:00 23:00 07:00 Intake Total 346 ml 220 ml Output Total 600 ml 700 ml Balance -254 ml -480 ml medications Current Medications Medications Dose Ordered Sig/Aram Route Start Time Stop Time Status Last Admin Dose Admin Piperacillin Sod/ Tazobactam Sod 100 ml @ 25 mls/hr Q12HR IV 09/11/24 10:00 09/19/24 08:17 25 MLS/HR Ondansetron HCl 4 mg Q4HP PRN IV 09/11/24 04:30 Acetaminophen 650 mg Q6HP PRN PO 09/11/24 04:30 Nitroglycerin 0.4 mg Q5MINP PRN SL 09/11/24 04:30 Morphine Sulfate 2 mg Q30M PRN IV 09/11/24 04:30 Acetaminophen/ Hydrocodone Bitart 1 tab Q8HPRN PRN PO 09/13/24 05:00 09/19/24 10:39 1 TAB Enteral Nutritional Formula 240 ml BIDWM PO 09/13/24 18:00 09/19/24 08:24 240 ML Acetaminophen 650 mg Q4HR PRN PO 09/14/24 10:00 Hold Levothyroxine Sodium 25 mcg QAM PO 09/15/24 07:00 09/19/24 06:16 25 MCG Magnesium Hydroxide 30 ml DAILY PRN PO 09/14/24 10:00 Melatonin 5 mg HS PO 09/15/24 22:00 09/17/24 21:44 5 MG Lorazepam 0.5 mg Q8HP PRN IV 09/18/24 12:30 09/18/24 21:16 0.5 MG Examination: GENERAL:Normal, HEENT:Normal, NECK:Normal, LUNGS:Normal, CVS:Normal, ABDOMEN:Normal, MSK:Normal, MSK:Abnormal (wounds both legs), SKIN:Normal, NEURO:Normal, :Normal laboratory and microbiology Laboratory Tests 09/19/24 09:50 Test 09/19/24 09:50 Range/Units Serum Glucose 107 H 74-106 mg/dL Microbiology Date/Time Source Procedure Growth Status 09/17/24 10:15 Stool Clostridium difficile Toxin Assay - Final Complete 09/11/24 16:31 Leg Right Gram Stain - Final Complete 09/11/24 16:31 Wound Culture - Final Enterococcus faecalis Complete 09/10/24 12:45 Blood Blood Culture - Final NO GROWTH AFTER 5 DAYS OF INCUBATION. Complete Problem List/Assessment/Plan Problem List/Assessment/Plan #1 acute resp failure: cont oxygen #2 encephalopathy- toxic/metabolic #3 gangrene/cellulitis both legs with sepsis: iv antibiotics #4 pvd #5 acute systolic heart failure: dc lasix #6 nstemi: cardio eval #7 acute liver failure/liver cirrhosis liver usg #8 acute renal failure ?vasomotor nephropathy: improving #9 hyperkalemia: repeat K #10 thrombocytopenia: dc lovenox, dc zyvox #11 hypothyroidism; resume med long dw daughter Nancy and son Anuj- [facility] advance care planning- full code- time spent 19 mins Plan discussed with: Patient, Daughter, Son My Orders My Orders Orders - PRADIP ORTIZ MD Procedure Category Date Status Time Lorazepam 2mg/Ml Inj PHA 09/18/24 In Process (Ativan Inj) 12:30 Complete Blood Count LAB 09/19/24 Logged 06:00 Chest Portable XY 09/18/24 Resulted 12:20 Communication Order ORDERS 09/19/24 Transmitted 11:23 Dietary Evaluation Review Comments: encourage PO intake to meet 75% of his needs Expected Outcomes/Goals: maintain weight, improved nutriton related lab values, healed wounds. Date of Service: Sep 19, 2024 Billing Provider: PRADIP ORTIZ MD Common Visit Codes: [id number] INP/OBS CARE(HIGH) Secondary Visit Codes: [id number] CARE PLAN 30 MINUTES PRADIP ORTIZ MD Sep 19, 2024 11:27
[2024-09-19 14:59] LABS: Hematocrit 46.5 % (41.0-53.0); Hemoglobin 15.3 g/dL (13.5-17.5); Mean Corpuscular Hemoglobin 33.2 pg (28.0-32.0); Mean Corpuscular Hgb Conc. 32.9 g/dL (32.0-36.0); Mean Corpuscular Volume 100.9 fL (80.0-100.0); Platelet Count (auto) 75 10^3/uL (140-450); Red Blood Cells 4.61 10^6/uL (4.5-5.90); Red Cell Distribution Width 16.3 % (11.8-14.3); White Blood Cell 5.4 10^3/uL (4.4-10.8)
[2024-09-19 15:06] LABS: Band Neutrophils % (manual) 0; Basophils % (manual) 0 (0.0-2.0); Blast Cells 0; Metamyelocytes % 0; Myelocytes % 0; Promyelocytes % 0; Reactive Lymphocytes 0
[2024-09-19 15:31] LABS: Eosinophils % (manual) 1 (0-7); Lymphocytes % (manual) 6 (10.0-50.0); Monocytes % (manual) 13 (0-12); Platelet Estimate Decreased
--- NOTE | 2024-09-19 18:52 | DVHPN2 ---
Progress Note Date Seen: Sep 19, 2024 Medical Necessity Reason Pt with a Central, PICC or Fol: Yes The following are medically ne: Lozoya Catheter Reason for lozoya catheter: Strict I&O Subjective Patient reports: Other Review of Systems: Deferred Objective vital signs Vital Sign Date Time Temp Pulse Resp B/P (MAP) Pulse Ox O2 Delivery O2 Flow Rate FiO2 09/19/24 09:09 140 09/19/24 09:00 98.3 16 154/83 (106) 94 98.3 09/19/24 08:15 Room Air* 0 21 Total Intake and Output 09/18/24 09/18/24 09/19/24 15:00 23:00 07:00 Intake Total 100 ml 346 ml 220 ml Output Total 600 ml 700 ml Balance 100 ml -254 ml -480 ml medications Current Medications Medications Dose Ordered Sig/Aram Route Start Time Stop Time Status Last Admin Dose Admin Piperacillin Sod/ Tazobactam Sod 100 ml @ 25 mls/hr Q12HR IV 09/11/24 10:00 09/19/24 08:17 25 MLS/HR Ondansetron HCl 4 mg Q4HP PRN IV 09/11/24 04:30 Acetaminophen 650 mg Q6HP PRN PO 09/11/24 04:30 Nitroglycerin 0.4 mg Q5MINP PRN SL 09/11/24 04:30 Morphine Sulfate 2 mg Q30M PRN IV 09/11/24 04:30 Acetaminophen/ Hydrocodone Bitart 1 tab Q8HPRN PRN PO 09/13/24 05:00 09/19/24 10:39 1 TAB Enteral Nutritional Formula 240 ml BIDWM PO 09/13/24 18:00 09/19/24 18:22 240 ML Acetaminophen 650 mg Q4HR PRN PO 09/14/24 10:00 Hold Levothyroxine Sodium 25 mcg QAM PO 09/15/24 07:00 09/19/24 06:16 25 MCG Magnesium Hydroxide 30 ml DAILY PRN PO 09/14/24 10:00 Melatonin 5 mg HS PO 09/15/24 22:00 09/17/24 21:44 5 MG Lorazepam 0.5 mg Q8HP PRN IV 09/18/24 12:30 09/18/24 21:16 0.5 MG Examination: GENERAL:Abnormal laboratory and microbiology Laboratory Tests 09/19/24 14:30 09/19/24 09:50 Test 09/19/24 09:50 Range/Units Serum Glucose 107 H 74-106 mg/dL Microbiology Date/Time Source Procedure Growth Status 09/17/24 10:15 Stool Clostridium difficile Toxin Assay - Final Complete 09/11/24 16:31 Leg Right Gram Stain - Final Complete 09/11/24 16:31 Wound Culture - Final Enterococcus faecalis Complete 09/10/24 12:45 Blood Blood Culture - Final NO GROWTH AFTER 5 DAYS OF INCUBATION. Complete Problem List/Assessment/Plan Problem List/Assessment/Plan Acute kidney injury superimposed Chronic Kidney Disease secondary hemodynamic mediated aTN, FeNa > 2%- Acute hypoxic respiratory failure, on O2 Bilateral foot gangrene/ischemia Peripheral arterial disease Hepatic encephalopathy Jaundice Transaminitis Sepsis Elevated troponin recs stable renal function will f/u off lasix Plan discussed with: Other Dietary Evaluation Review Comments: encourage PO intake to meet 75% of his needs Expected Outcomes/Goals: maintain weight, improved nutriton related lab values, healed wounds. ANTON PRIETO MD Sep 19, 2024 18:52
[2024-09-20 01:00] VITALS: BP 164/80; PULSE 82; RESP 18; TEMP 97.6; O2SAT 97
[2024-09-20 05:00] VITALS: BP 156/74; PULSE 88; RESP 17; TEMP 97.4; O2SAT 98
[2024-09-20 06:28] LABS: Anion Gap 11 (5-15); Calcium 9.1 mg/dL (8.7-10.4); Chloride 98 mmol/L (98-107); Potassium 3.9 mmol/L (3.5-5.1); Sodium 142 mmol/L (136-145)
[2024-09-20 06:34] LABS: BUN/Creatinine Ratio 24.7 (10.0-20.0); Glucose 86 mg/dL (74-106)
[2024-09-20 06:38] LABS: Blood Urea Nitrogen 54 mg/dL (9-23); Carbon Dioxide 33 mmol/L (20-31)
[2024-09-20 08:00] VITALS: PULSE 92
[2024-09-20 09:00] VITALS: BP 137/86; PULSE 90; RESP 17; TEMP 97.8; O2SAT 92
--- NOTE | 2024-09-20 10:16 | DVHDS2 ---
Discharge Summary Date of Admission Sep 11, 2024 at 04:24 Date of Discharge: Sep 20, 2024 Labs/Diagnostic Data: Laboratory Results Test 09/20/24 05:48 09/19/24 14:30 09/19/24 09:50 09/18/24 06:58 Sodium Level 142 mmol/L (136-145) Potassium Level 3.9 mmol/L (3.5-5.1) Chloride Level 98 mmol/L (98-107) Carbon Dioxide Level 33 mmol/L (20-31) Anion Gap 11 (5-15) Blood Urea Nitrogen 54 mg/dL (9-23) Creatinine 2.19 mg/dL (0.700-1.30) Glomerular Filtration Rate Calc 29 mL/min (>90) BUN/Creatinine Ratio 24.7 (10.0-20.0) Serum Glucose 86 mg/dL (74-106) Calcium Level 9.1 mg/dL (8.7-10.4) White Blood Count 5.4 10^3/uL (4.4-10.8) Red Blood Count 4.61 10^6/uL (4.5-5.90) Hemoglobin 15.3 g/dL (13.5-17.5) Hematocrit 46.5 % (41.0-53.0) Mean Corpuscular Volume 100.9 fL (80.0-100.0) Mean Corpuscular Hemoglobin 33.2 pg (28.0-32.0) Mean Corpuscular Hemoglobin Concent 32.9 g/dL (32.0-36.0) Red Cell Distribution Width 16.3 % (11.8-14.3) Platelet Count 75 10^3/uL (140-450) Mean Platelet Volume 10.2 fL (6.9-10.8) Neutrophils (%) (Auto) % (37.0-80.0) Lymphocytes (%) (Auto) % (10.0-50.0) Monocytes (%) (Auto) % (0.0-12.0) Basophils (%) (Auto) % (0.0-2.0) Neutrophils # (Auto) 10 ^3/uL (1.6-8.6) Lymphocytes # (Auto) 10 ^3/uL (0.4-5.4) Monocytes # (Auto) 10 ^3/uL (0-1.3) Differential Total Cells Counted 100.0 (100) Neutrophils % (Manual) 80 (37.0-80.0) Band Neutrophils % (Manual) 0 Lymphocytes % (Manual) 6 (10.0-50.0) Monocytes % (Manual) 13 (0-12) Eosinophils % (Manual) 1 (0-7) Basophils % (Manual) 0 (0.0-2.0) Metamyelocytes % (manual) 0 Myelocytes % (Manual) 0 Promyelocytes % (Manual) 0 Blast Cells % (Manual) 0 Reactive Lymphocytes 0 Platelet Estimate Decreased Total Bilirubin 2.1 mg/dL (0.2-1.0) Aspartate Amino Transferase (AST) 72 U/L (13-40) Alanine Aminotransferase (ALT) 52 U/L (7-40) Alkaline Phosphatase 131 U/L (46-116) Ammonia 27 umol/L (11-32) Total Protein 4.8 g/dL (5.7-8.2) Albumin 2.8 g/dL (3.2-4.8) Eosinophils (%) (Auto) 0.8 % (0.0-7.0) Eosinophils # (Auto) 0 10 ^3/uL (0-0.8) Basophils # (Auto) 0 10 ^3/uL (0-0.2) Nucleated Red Blood Cells 0.4 % Test 09/16/24 06:20 09/13/24 14:24 09/12/24 07:50 09/11/24 14:25 Magnesium Level 1.4 mg/dL (1.6-2.6) POC Glucose 84 mg/dl (70-106) Prothrombin Time 18.2 sec (9.3-11.8) Prothrombin Time INR 1.82 (0.9-1.15) Activated Partial Thromboplast Time 49.2 SEC (24.5-34.5) Vitamin B12 Level 1665 pg/mL (211-911) Random Vancomycin Level 12.6 ug/mL (5-10) Urine Creatinine 41.61 mg/dL (30.0-125.0) Urine Protein/Creatinine Ratio 1.75 Urine Sodium 77 mmol/L (40-220) Urine Total Protein 72.7 mg/dL (1-14) Urine Opiates Screen Neg (NEGATIVE) Urine Fentanyl Screen Neg (NEGATIVE) Urine Barbiturates Screen Neg (NEGATIVE) Urine Phencyclidine Screen Neg (NEGATIVE) Urine Amphetamines Screen Neg (NEGATIVE) Urine Benzodiazepines Screen Neg (NEGATIVE) Urine Cocaine Screen Neg (NEGATIVE) Urine Cannabinoids Screen Neg (NEGATIVE) Test 09/11/24 13:29 09/11/24 09:30 09/11/24 06:38 09/11/24 05:20 Hemoglobin A1c 6.1 % A1C (<5.7) Triglycerides Level 73 mg/dL (< 150) Cholesterol Level 83 mg/dL (< 200) LDL Cholesterol 40 mg/dL (< 100) HDL Cholesterol 30 mg/dL (40-59) Thyroid Stimulating Hormone (TSH) 13.17 uIU/mL (0.55-4.78) Lactic Acid Level 2.4 mmol/L (0.4-2.0) Creatine Kinase 587 U/L (46-171) Vitamin D 25-Hydroxy 74.5 ng/mL (30.0-100) Phosphorus Level 6.0 mg/dL (2.4-5.1) B-Type Natriuretic Peptide 854.96 pg/mL (0-100) Parathyroid Hormone (Intact) 171.0 pg/mL (18.4-80.1) Hepatitis B Surface Antigen Negative (Negative) Hepatitis C Antibody Negative (Negative) Test 09/11/24 04:53 09/10/24 23:45 09/10/24 16:56 09/10/24 12:45 Blood Gas Specimen Type Arterial Blood Gas Sample Site Right radial Blood Gas Patient Temperature 37.0 Arterial Blood Date Drawn [id number] Arterial Blood pH 7.379 (7.350-7.450) Arterial Blood Partial Pressure CO2 38.8 mmHg (35.0-48.0) Arterial Blood Partial Pressure O2 75.7 mmHg (83.0-108.0) Arterial Blood HCO3 22.4 mmol/L (21.0-28.0) Arterial Blood Oxygen Saturation 94.1 % (94.0-98.0) Arterial Blood Base Excess -2.4 mmol/L (-2.0-3.0) Arterial Blood Oxyhemoglobin 92.1 % (94.0-98.0) Arterial Blood Carboxyhemoglobin 1.5 % (0.5-1.5) Arterial Blood Methemoglobin 0.6 % (0.0-1.5) Kirk Test Modified Blood Gas Total Hemoglobin 16.10 g/dL (13.5-17.5) Blood Gas Liter Flow 4.00 Blood Gas Modality Nasal cannula FiO2 % 32.0 Urine Color Yellow (Yellow) Urine Clarity Turbid (Clear) Urine pH 5.0 (5.0-9.0) Urine Specific [place] 1.020 (1.001-1.035) Urine Protein 1+ (Negative) Urine Ketones Negative (Negative) Urine Blood 2+ /uL (Negative) Urine Nitrite Negative (Negative) Urine Bilirubin Negative (Negative) Urine Urobilinogen Normal mg/dL (Negative) Urine Leukocyte Esterase Negative /uL (Negative) Urine RBC 58 /hpf (0 - 3) Urine Microscopic WBC 5 /HPF (0-3) Urine Squamous Epithelial Cells Few /hpf (<5) Urine Bacteria Few /hpf (None Seen) Urine Hyaline Casts Mod /lpf (0 - 2) Urine Mucus Few (None Seen) Urine Glucose Normal mg/dL (Normal) Troponin I High Sensitivity 80 ng/L (</=54) Clumped Platelets Few Anisocytosis (manual) Slight Macrocytosis Slight Other Laboratory Tests 09/20/24 05:48 09/19/24 14:30 Brief Hx & Hospital Course: see dictated note Condition at Discharge: Poor Final Diagnosis/Problems List CHF Discharge Disposition: Hospice - Home Discharge Instruct/Medications Diet: Regular Activity: No Restrictions, As Tolerated Follow Up/Referral: FU WITH HOSPICE Medications: PER HOSPICE LEAVE [place] IN Discharge Statement: "Patient was advised to return to the ER or call 911 if any headaches, dizziness, shortness of breath, chest pain, abdominal pain, bleeding, fevers, or worsening of medical condition. Patient was counseled about treatment plan, medications, possible side effects, patientverbalized understanding. All questions were answered to the best of my ability. This discharge took greater then 30 minutes in planning, reviewing documentation, counseling the patient, and discussing with other team members." ASSESSMENT ASSESSMENT Assessment CHF Date of Service: Sep 20, 2024 Billing Provider: PRADIP ORTIZ MD Common Visit Codes: 70138-ZGQ/OBS DISCH DAY >30min PRADIP ORTIZ MD Sep 20, 2024 10:16
--- NOTE | 2024-09-20 10:29 | DVHDS ---
DATE OF DISCHARGE: 09/20/2024 DATE OF DISCHARGE: 09/20/2024 HISTORY OF PRESENT ILLNESS: The patient is an 84-year-old gentleman who was admitted with history of confusion and bilateral foot wounds. He has history of hypertension, congestive heart failure. HOSPITAL COURSE: The patient had a duplex of lower extremity that showed evidence of 75% stenosis in the left popliteal artery. The patient had wound cultures that grew Enterococcus faecalis. The patient had a foot CT that showed evidence of cellulitis. No osteomyelitis was seen. The patient was placed on broad-spectrum antibiotics. He had a liver ultrasound that showed likely cirrhosis. The patient was in acute renal failure as well as acute liver failure. The patient's echocardiogram done showed ejection fraction of less than 20%. After extensive discussion with the patient's family including daughter and son, they wish him to be discharged on hospice. The patient will be discharged in hospice with medications as per hospice. FINAL DIAGNOSES: Therefore, * Acute respiratory failure. * Encephalopathy, toxic metabolic. * Cellulitis of both lower extremities with sepsis. * Peripheral vascular disease. * Acute systolic heart failure. * [id number] myocardial infarction. * Acute liver failure with liver cirrhosis. * Acute renal failure, questionable vasomotor nephropathy. * Hypokalemia. * Thrombocytopenia. * Hypothyroidism. * Hospice care. Time spent in discharge planning and review of plan with family and nursing is 39 minutes. MD RACHELE Tang/OLLIE TID: [id number] RECEIPT: [id number]
[2024-09-20 10:34] VITALS: BP 126/65; PULSE 89; TEMP 36.6
[2024-09-20 12:30] VITALS: BP 102/69; PULSE 83; RESP 16; TEMP 98; O2SAT 91
--- NOTE | 2024-09-20 15:51 | DVHPN2 ---
Progress Note Date Seen: Sep 20, 2024 Medical Necessity Reason Pt with a Central, PICC or Fol: Yes The following are medically ne: Lozoya Catheter Reason for lozoya catheter: Strict I&O Subjective Patient reports: Other (Daughter is bedside) Review of Systems: Deferred Objective vital signs Vital Sign Date Time Temp Pulse Resp B/P (MAP) Pulse Ox O2 Delivery O2 Flow Rate FiO2 09/20/24 12:30 98.0 83 16 102/69 (80) 91 98.0 09/20/24 08:00 Room Air* 0 21 Total Intake and Output 09/19/24 09/19/24 09/20/24 15:00 23:00 07:00 Intake Total 100 ml 810 ml 480 ml Output Total 250 ml 900 ml Balance 100 ml 560 ml -420 ml medications Current Medications Medications Dose Ordered Sig/Aram Route Start Time Stop Time Status Last Admin Dose Admin Piperacillin Sod/ Tazobactam Sod 100 ml @ 25 mls/hr Q12HR IV 09/11/24 10:00 09/20/24 09:56 25 MLS/HR Ondansetron HCl 4 mg Q4HP PRN IV 09/11/24 04:30 Acetaminophen 650 mg Q6HP PRN PO 09/11/24 04:30 Nitroglycerin 0.4 mg Q5MINP PRN SL 09/11/24 04:30 Acetaminophen/ Hydrocodone Bitart 1 tab Q8HPRN PRN PO 09/13/24 05:00 09/20/24 13:31 1 TAB Enteral Nutritional Formula 240 ml BIDWM PO 09/13/24 18:00 09/20/24 08:00 240 ML Acetaminophen 650 mg Q4HR PRN PO 09/14/24 10:00 Hold Levothyroxine Sodium 25 mcg QAM PO 09/15/24 07:00 09/20/24 06:45 25 MCG Magnesium Hydroxide 30 ml DAILY PRN PO 09/14/24 10:00 Melatonin 5 mg HS PO 09/15/24 22:00 09/17/24 21:44 5 MG Lorazepam 0.5 mg Q8HP PRN IV 09/18/24 12:30 09/19/24 23:39 0.5 MG Examination: NEURO:Abnormal, :Abnormal laboratory and microbiology Laboratory Tests 09/20/24 05:48 09/19/24 14:30 Test 09/20/24 05:48 Range/Units Serum Glucose 86 74-106 mg/dL Microbiology Date/Time Source Procedure Growth Status 09/17/24 10:15 Stool Clostridium difficile Toxin Assay - Final Complete 09/11/24 16:31 Leg Right Gram Stain - Final Complete 09/11/24 16:31 Wound Culture - Final Enterococcus faecalis Complete 09/10/24 12:45 Blood Blood Culture - Final NO GROWTH AFTER 5 DAYS OF INCUBATION. Complete Problem List/Assessment/Plan Problem List/Assessment/Plan Acute kidney injury superimposed Chronic Kidney Disease secondary hemodynamic mediated aTN, FeNa > 2%- Acute hypoxic respiratory failure, on O2 Bilateral foot gangrene/ischemia Peripheral arterial disease Hepatic encephalopathy Jaundice Transaminitis Sepsis Elevated troponin recs Patient is being discharged home on home hospice We will sign off this case Plan discussed with: Spouse, Other Dietary Evaluation Review Comments: encourage PO intake to meet 75% of his needs Expected Outcomes/Goals: maintain weight, improved nutriton related lab values, healed wounds. ANTON PRIETO MD Sep 20, 2024 15:51
== END 2024-09-20 15:32 | disposition hospice, home (50) | DRG 871 ==
LOC: EDBD 10:47 → ER 10:47 → TELE 09-11 04:24 → OVERFLOW 09-11 04:34 → TELE-WESTW 09-14 12:48
PROVIDERS: ADMIT Internal Medicine; ATTEND Internal Medicine
DX: A41.9 Sepsis, unspecified organism (principal); G92.8 Other toxic encephalopathy; I21.4 Non-ST elevation (NSTEMI) myocardial infarction; N17.0 Acute kidney failure with tubular necrosis; J96.01 Acute respiratory failure with hypoxia; K72.00 Acute and subacute hepatic failure without coma; I50.23 Acute on chronic systolic (congestive) heart failure; E87.20 Acidosis, unspecified; L03.115 Cellulitis of right lower limb; L03.116 Cellulitis of left lower limb; I13.0 Hypertensive heart and chronic kidney disease with heart failure and stage 1 through stage 4 chronic kidney disease, or unspecified chronic kidney disease; E11.52 Type 2 diabetes mellitus with diabetic peripheral angiopathy with gangrene; E11.22 Type 2 diabetes mellitus with diabetic chronic kidney disease; B95.2 Enterococcus as the cause of diseases classified elsewhere; E87.6 Hypokalemia; S91.301A Unspecified open wound, right foot, initial encounter; E87.5 Hyperkalemia; I08.1 Rheumatic disorders of both mitral and tricuspid valves; K76.82 Hepatic encephalopathy; N18.9 Chronic kidney disease, unspecified; S91.302A Unspecified open wound, left foot, initial encounter; X58.XXXA Exposure to other specified factors, initial encounter; D69.6 Thrombocytopenia, unspecified; E03.9 Hypothyroidism, unspecified; K74.60 Unspecified cirrhosis of liver; Y93.89 Activity, other specified; Y92.89 Other specified places as the place of occurrence of the external cause; Y99.8 Other external cause status; Z51.5 Encounter for palliative care
CPT/HCPCS: 36415; 36600; 70450; 71045; 73630; 73700; 76705; 76775; 80048; 80053; 80061; 80202; 80307; 81001; 82140; 82306; 82550; 82570; 82607; 82805; 82962; 83036; 83605; 83735; 83880; 83970; 84075; 84100; 84132; 84156; 84300; 84443; 84484; 85007; 85025; 85027; 85610; 85730; 86803; 87040; 87077; 87186; 87205; 87340; 87493; 93005; 93306; 93925; 96365; 96375; 97110; 97116; 97163; G0378; J0692; J1815; J2543